=== PATIENT | female | born 1990 | race Caucasian/White ===

== ENCOUNTER → 2018-08-26 12:19 | Outpatient (CLI) | payer OTHER, SELFPAY ==
[2018-08-26 14:49] LABS: Troponin I < 0.02 ng/ml (0.00-0.06)
[2018-08-26 14:52] LABS: Anion Gap 12.7 mEq/L (5-15); Blood Urea Nitrogen 10 mg/dL (7-18); Calcium 8.7 mg/dL (8.5-10.1); Carbon Dioxide 29 mmol/L (21.0-32.0); Chloride 104 mmol/L (98-107); Creatine Kinase 66 U/L (26-192); Creatinine,Serum 0.57 mg/dL (0.55-1.02); Estimated Glomerular Filt Rate 126 ml/min (>60); Free T4 (Free Thyroxine) 1.04 ng/dl (0.76-1.46); GFR (African American) 153 ML/MIN (>60); Glucose 89 mg/dL (74-106); Potassium 4.7 mmoL/L (3.5-5.1); Sodium 141 mmol/L (136-145); Thyroid Stimulating Hormone 1.35 uIU/ml (0.358-3.740)
== END ==
PROVIDERS: Visit Provider Physician Assistant
DX: R00.2 Palpitations (principal); R06.00 Dyspnea, unspecified; R07.9 Chest pain, unspecified; Z86.79 Personal history of other diseases of the circulatory system; Z98.890 Other specified postprocedural states
CPT/HCPCS: 36415; 80048; 82550; 84439; 84443; 84484

== ENCOUNTER → 2019-12-09 08:56 | Outpatient (CLI) | payer OTHER, SELFPAY ==
--- NOTE | 2019-12-09 09:00 | FL_ITS ---
PROCEDURE: FL UPPER GI SERIES W/O AIR CLINICAL INDICATION: GERD,S/P LAPAROSCOPIC SLEEVE GASTRECTOMY COMPARISON: No exams were available for comparison TECHNIQUE: FLUOROSCOPY TIME : 1 minutes and 45 seconds FINDINGS: There has been a prior gastric sleeve surgery. The esophagus has an unremarkable appearance. No hiatal hernia evident. No mass or ulcer. Duodenal bulb has an unremarkable appearance. Reflux was not demonstrated during the exam. IMPRESSION: Prior gastric sleeve surgery otherwise negative upper GI Dictated by: Kyle Sims MD 12/09/2019 14:36 Kyle Sims MD in [place] 12/09/2019 14:36
--- NOTE | 2019-12-09 09:02 | XR_ITS ---
PROCEDURE: XR KUB CLINICAL INDICATION: GERD,S/P LAPAROSCOPIC SLEEVE GASTRECTOMY COMPARISON: No exams were available for comparison FINDINGS: Nonspecific bowel gas pattern with a mild amount of retained colonic feces. Pelvic phleboliths are noted. There are surgical clips from prior cholecystectomy. No acute bony IMPRESSION: Findings mild amount of retained colonic feces otherwise negative Dictated by: Kyle Sims MD 12/09/2019 14:35 Kyle Sims MD in [place] 12/09/2019 14:35
== END ==
PROVIDERS: PCP Pediatrics; Visit Provider Surgery
DX: K21.9 Gastro-esophageal reflux disease without esophagitis (principal); Z98.84 Bariatric surgery status
CPT/HCPCS: 74018; 74240

== ENCOUNTER → 2019-12-11 16:26 | Outpatient (CLI) | payer OTHER, SELFPAY ==
[2019-12-11 18:12] LABS: HCG,Quantitative 21 mIU/ml (0-5.42)
== END ==
PROVIDERS: Visit Provider Obstetrics & Gynecology
DX: Z32.00 Encounter for pregnancy test, result unknown (principal)
CPT/HCPCS: 36415; 84702

== ENCOUNTER → 2019-12-13 05:34 | Outpatient (CLI) | payer OTHER, SELFPAY ==
[2019-12-13 06:43] LABS: HCG,Quantitative 14 mIU/ml (0-5.42)
== END ==
PROVIDERS: PCP Pediatrics; Visit Provider Obstetrics & Gynecology
DX: Z34.90 Encounter for supervision of normal pregnancy, unspecified, unspecified trimester (principal)
CPT/HCPCS: 36415; 84702

== ENCOUNTER → 2019-12-15 21:00 | Outpatient (CLI) | payer OTHER, SELFPAY ==
[2019-12-15 22:02] LABS: HCG,Quantitative 3 mIU/ml (0-5.42)
== END ==
PROVIDERS: PCP Pediatrics; Visit Provider Obstetrics & Gynecology
DX: Z34.90 Encounter for supervision of normal pregnancy, unspecified, unspecified trimester (principal)
CPT/HCPCS: 36415; 84702

== ENCOUNTER → 2020-04-05 10:49 | Outpatient (CLI) | payer OTHER, SELFPAY ==
[2020-04-05 12:33] LABS: HCG,Quantitative 390 mIU/ml (0-5.42)
== END ==
PROVIDERS: Visit Provider Obstetrics & Gynecology
DX: Z32.00 Encounter for pregnancy test, result unknown (principal)
CPT/HCPCS: 36415; 84702

== ENCOUNTER → 2020-04-08 13:47 | Outpatient (CLI) | payer OTHER, SELFPAY ==
[2020-04-08 14:56] LABS: HCG,Quantitative 1326 mIU/ml (0-5.42)
== END ==
PROVIDERS: Visit Provider Obstetrics & Gynecology
DX: Z34.90 Encounter for supervision of normal pregnancy, unspecified, unspecified trimester (principal)
CPT/HCPCS: 36415; 84702

== ENCOUNTER → 2020-04-23 12:50 | Outpatient (CLI) | payer OTHER, SELFPAY ==
--- NOTE | 2020-04-23 12:50 | US_ITS ---
PROCEDURE: US OB <= 14 WEEKS FETUS CLINICAL INDICATION: Dates COMPARISON: No exams were available for comparison FINDINGS: An intrauterine gestational sac is present with a pole with a crown-rump length of 0.88cm correlating to gestational age of 7weeks. heart tones are present with an FHR of 126bpm. Yolk sac is noted. Right ovarian volume 11 cc. A Cordial luteal cyst is present. Left ovarian volume 3.9 cc, normal in appearance. IMPRESSION: Viable intrauterine . Estimated due date by Ultrasound is 12/10/2020 Dictated by: Irma Love MD 04/23/2020 18:26 Irma Love MD in [place] 04/23/2020 18:26
== END ==
PROVIDERS: PCP Pediatrics; Visit Provider Obstetrics & Gynecology
DX: Z34.90 Encounter for supervision of normal pregnancy, unspecified, unspecified trimester (principal)
CPT/HCPCS: 76801

== ENCOUNTER → 2020-04-27 17:01 | Outpatient (CLI) | payer OTHER, SELFPAY ==
[2020-04-27 18:38] LABS: Basophils % 0.3 % (0.1-2.0); Eosinophils % 0.4 % (0.1-12.0); Hematocrit 42.4 % (37.0-47.0); Hemoglobin 13.1 g/dL (12.2-16.2); Lymphocytes # 1.5 K/mm3 (0.7-4.5); Mean Corpuscular HGB Conc 30.9 g/dL (31.8-35.4); Mean Corpuscular Hemoglobin 29.1 pg (27.0-31.2); Mean Corpuscular Volume 94.2 fl (81-99); Monocytes # 0.4 K/mm3 (0.1-1.0); Monocytes % 3.6 % (1.7-9.3); Neutrophils # 8.9 K/mm3 (1.8-7.8); Neutrophils % 81.6 % (37.0-80.0); Platelet Count 288 K/mm3 (142-424); Red Cell Distribution Width 12.3 % (11.5-17.5); White Blood Count 10.9 K/mm3 (4.8-10.8)
[2020-04-30 18:37] LABS: Rapid Plasma Reagin Ab Titer Non Reactive (NonRea<1:1); Rubella Antibodies, IgG <0.90 index (Immune >0.99)
[2020-04-30 18:38] LABS: HIV Screen 4th Generation wRfx Non Reactive (Non Reactive); Hepatitis B Surface Antigen Negative (Negative); Hepatitis C Antibody <0.1 s/co ratio (0.0-0.9)
== END ==
PROVIDERS: Visit Provider Obstetrics & Gynecology
DX: Z34.90 Encounter for supervision of normal pregnancy, unspecified, unspecified trimester (principal)
CPT/HCPCS: 36415; 85025; 86592; 86703; 86762; 86850; 87340; 87380; G0432

== ENCOUNTER → 2020-07-22 12:52 | Outpatient (CLI) | payer OTHER, SELFPAY ==
--- NOTE | 2020-07-22 12:53 | US_ITS ---
PROCEDURE: US OB >= 14 WEEKS FETUS CLINICAL INDICATION: OB complete Anatomy exam COMPARISON: US US OB <= 14 WEEKS FETUS from 04/23/2020 FINDINGS: Single viable intrauterine gestation. Cephalic position. Placenta: Posteriorplacenta grade 1. There is average amount fluid. The cervix appears satisfactory. Closed and measuring 3 cm in length. Complete survey performed and was unremarkable on the submitted images as in PACS. No discrete anomalies identified on survey imaging by technologist. Active fetus. Three-vessel cord with satisfactory umbilical cord insertion. 4- chamber heart noted. Survey of brain & ventricles Unremarkable. Face and neck survey unremarkable. Diaphragm and chest views unremarkable. Abdomen: Both kidneys noted and unremarkable. Stomach noted and satisfactory. Spine: Survey of the spine satisfactory with no anomalies identified nor imaged. Both arms and legs noted. Amniotic Fluid: Adequate. Maternal adnexa: No significant findings. Measurements: Average ultrasound age 19weeks 3days. Gestational Age 19weeks 6 okay days Estimated due date by ultrasound age 1012/13/2020. Estimated weight 288g BPD = 19weeks 4days OFD = 19weeks 5days HC = 19weeks AC = 19weeks 3days FL = 19weeks 4days Growth Percentile= 20Percent% Heart Rate = 144bpm Cerebellum = 20weeks 2days Humerus = 19weeks 5days HC/AC is 1.15 CI is 0.79 FL/BPD is 0.69 FL/AC is 0.22 IMPRESSION: Live IUP which is in cephalic presentation with an average ultrasound age 19 weeks 3 days. No obvious anomalies. Please see above for detail. Dictated by: Kyle Sims MD 07/23/2020 11:21 Kyle Sims MD in [place] 07/23/2020 11:21
== END ==
PROVIDERS: PCP Pediatrics; Visit Provider Obstetrics & Gynecology
DX: Z34.90 Encounter for supervision of normal pregnancy, unspecified, unspecified trimester (principal)
CPT/HCPCS: 76805

== ENCOUNTER → 2020-09-08 10:45 | Outpatient (CLI) | payer OTHER, SELFPAY ==
[2020-09-08 11:07] LABS: Basophils % 0.4 % (0.1-2.0); Eosinophils # 0.1 K/mm3 (0.0-0.4); Eosinophils % 0.9 % (0.1-12.0); Hematocrit 34.4 % (37.0-47.0); Hemoglobin 11.6 g/dL (12.2-16.2); Lymphocytes # 1.4 K/mm3 (0.7-4.5); Lymphocytes % 15.5 % (10-50); Mean Corpuscular HGB Conc 33.6 g/dL (31.8-35.4); Mean Corpuscular Hemoglobin 28.5 pg (27.0-31.2); Mean Corpuscular Volume 84.8 fl (81-99); Mean Platelet Volume 7.5 fl (7.4-10.4); Monocytes # 0.3 K/mm3 (0.1-1.0); Neutrophils # 7.1 K/mm3 (1.8-7.8); Neutrophils % 80.1 % (37.0-80.0); Platelet Count 304 K/mm3 (142-424); Red Blood Count 4.06 M/mm3 (4.20-5.40); Red Cell Distribution Width 12.6 % (11.5-17.5); White Blood Count 8.8 K/mm3 (4.8-10.8)
[2020-09-08 11:46] LABS: Glucose,Fasting 81 mg/dl (74-100)
[2020-09-08 13:17] LABS: Glucose 1 Hour 166 mg/dL (74-100)
== END ==
PROVIDERS: Visit Provider Obstetrics & Gynecology
DX: Z34.90 Encounter for supervision of normal pregnancy, unspecified, unspecified trimester (principal)
CPT/HCPCS: 36415; 82951; 85025

== ENCOUNTER → 2020-09-14 11:06 | Outpatient (CLI) | payer OTHER, SELFPAY ==
[2020-09-14 11:48] LABS: Glucose,Fasting 81 mg/dl (74-100)
[2020-09-14 13:52] LABS: Glucose 1 Hour 179 mg/dL (74-100)
[2020-09-14 14:16] LABS: Glucose 2 Hour 143 mg/dL (74-100)
[2020-09-14 15:59] LABS: Glucose 3 Hour 49 mg/dL (74-100)
== END ==
PROVIDERS: Visit Provider Obstetrics & Gynecology
DX: Z34.92 Encounter for supervision of normal pregnancy, unspecified, second trimester (principal); R73.09 Other abnormal glucose
CPT/HCPCS: 36415; 82951

== ENCOUNTER → 2020-10-25 13:31 | Outpatient (CLI) | payer OTHER, SELFPAY ==
--- NOTE | 2020-10-25 13:31 | US_ITS ---
PROCEDURE: US OB FOLLOW UP CLINICAL INDICATION: Growth and COSMO FINDINGS: The following parameters are obtained: There is a single live fetus which is in cephalic presentation. Average ultrasound age is Average 33weeks 1day Estimated due date by ultrasound is 12/12/2020. Estimated weight is 2,058g. This is 25 percentile BPD: 33weeks 4days OFD: 33 weeks 1 day HC: 33weeks AC: 33weeks FL: 32weeks 4days heart rate: 147bpm bpm. HC/AC: 1.03 Cephalic index: 0.79 FL/BPD: 0.75 FL/AC: 0.22 Amniotic fluid index: 10.52cm The femur length is 32weeks 4days No obvious anomalies evident. Placenta: Posterior grade 1 Cervix: Closed at 4 cm IMPRESSION: There is a single live fetus present in cephalic presentation. Average ultrasound age 33 weeks 1 day with an estimated weight 2058 g which is 25th percentile. Dictated by: Kyle Sims MD 10/25/2020 15:06 Kyle Sims MD in [place] 10/25/2020 15:06
== END ==
PROVIDERS: PCP Pediatrics; Visit Provider Obstetrics & Gynecology
DX: O36.5990 Maternal care for other known or suspected poor fetal growth, unspecified trimester, not applicable or unspecified (principal)
CPT/HCPCS: 76816

== ENCOUNTER → 2020-11-05 14:54 | Outpatient (CLI) | payer OTHER, SELFPAY | PROVIDERS: Visit Provider Obstetrics & Gynecology | DX: Z34.90 Encounter for supervision of normal pregnancy, unspecified, unspecified trimester (principal) | CPT/HCPCS: 86403 ==

== ENCOUNTER → 2020-12-01 12:48 | Outpatient (CLI) | payer OTHER, SELFPAY ==
[2020-12-01 13:27] LABS: Basophils % 0.4 % (0.1-2.0); Eosinophils # 0.1 K/mm3 (0.0-0.4); Eosinophils % 0.8 % (0.1-12.0); Hematocrit 34.3 % (37.0-47.0); Lymphocytes # 1.3 K/mm3 (0.7-4.5); Lymphocytes % 14.2 % (10-50); Mean Corpuscular HGB Conc 32.1 g/dL (31.8-35.4); Mean Corpuscular Hemoglobin 26.4 pg (27.0-31.2); Mean Corpuscular Volume 82.3 fl (81-99); Mean Platelet Volume 7.7 fl (7.4-10.4); Monocytes # 0.3 K/mm3 (0.1-1.0); Monocytes % 3.2 % (1.7-9.3); Neutrophils # 7.6 K/mm3 (1.8-7.8); Neutrophils % 81.3 % (37.0-80.0); Platelet Count 379 K/mm3 (142-424); Red Blood Count 4.17 M/mm3 (4.20-5.40); Red Cell Distribution Width 13.8 % (11.5-17.5); White Blood Count 9.3 K/mm3 (4.8-10.8)
[2020-12-01 13:54] LABS: Chloride 105 mmol/L (98-107); Potassium 4.4 mmoL/L (3.5-5.1); Sodium 134 mmol/L (136-145)
[2020-12-01 13:56] LABS: Alanine Aminotransferase 12 U/L (12-78); Aspartate Amino Transferase 26 U/L (14-36); Blood Urea Nitrogen 8 mg/dl (7-17); Estimated Glomerular Filt Rate 144 ml/min (>60); GFR (African American) 174 ML/MIN (>60)
[2020-12-01 13:57] LABS: Albumin Level 3.7 g/dl (3.5-5.0); Albumin/Globulin Ratio 1.2 (1.1-1.8); Alkaline Phosphatase 179 U/L (38-126); Anion Gap 13.4 mEq/L (5-15); Bilirubin,Total 0.6 mg/dl (0.2-1.3); Carbon Dioxide 20 mmol/L (22.0-30.0); Glucose 114 mg/dl (74-100); Total Protein,Serum 6.7 g/dl (6.3-8.2)
== END ==
PROVIDERS: Visit Provider Obstetrics & Gynecology
DX: Z34.90 Encounter for supervision of normal pregnancy, unspecified, unspecified trimester (principal)
CPT/HCPCS: 36415; 80053; 85025; 86850; C9803; U0003; U0005

== ENCOUNTER 2020-12-03 05:03 | Inpatient (IN) | payer OTHER, SELFPAY ==
--- NOTE | 2020-12-01 10:44 | SUR.PREOP ---
instructed pt to have COVID swab today
[2020-12-03] VITALS (11 sets, daily range): BP systolic 103–142; BP diastolic 57–82; PULSE 74–89; RESP 16–18; TEMP 36.4–42.7; O2SAT 98–100; BMI 41.8
[2020-12-03 05:44] LABS: Microscopic, Urine URINE MICROSCOPIC (MICROSCOPIC)
[2020-12-03 05:45] LABS: Appearance,Urine CLEAR (Clear); Bilirubin,Urine Negative (Negative); Blood, Urine Negative (Negative); Color,Urine YELLOW (Yellow); Glucose,Urine (UA) Negative (Negative); Ketones,Urine 1+ (Negative); Leukocyte Esterase,Urine Negative (Negative); Nitrate,Urine Negative (Negative); Protein,Urine Negative (Negative); Specific Gravity, Urine 1.025 (1.005-1.030); Urobilinogen,Urine 0.2 EU/dl (0.2)
[2020-12-03 05:56] LABS: Barbiturates Screen,Urine Negative ng/ml (<200); Benzodiazepines Screen,Urine Negative ng/ml (<200)
[2020-12-03 05:57] LABS: Amphetamine/Metha Screen,Urine Negative ng/ml (<1000)
[2020-12-03 05:58] LABS: Cannabinoid Screen,Urine Negative ng/ml (<50); Methadone Screen,Urine Negative ng/ml (<300)
[2020-12-03 05:59] LABS: Cocaine Screen,Urine Negative ng/ml (<300); Opiate Screen,Urine Negative ng/ml (<300)
[2020-12-03 06:00] LABS: Phencyclidine Screen,Urine Negative ng/ml (<25)
[2020-12-03 06:11] LABS: Bacteria,Urine 1+ /lpf; Mucus,Urine 1+ /lpf
--- NOTE | 2020-12-03 07:46 | HMH.HP ---
*Admission Date: 12/03/20 *Chief complaint: scheduled c section *History of present illness: 30 yo admitted for scheduled c section at 39 weeks care at [facility] significant for SVT, cardiac ablation and cardiac pacemaker placement She also has a history of gastric bypass History of c section and mild anemia with this [facility] History Medical History: Reports:: Arrhythmia, Gastroesophageal Reflux Disease(GERD), Internal Pacemaker, Supraventricular Tachycardia Denies:: Diabetes Mellitus Type 1, Diabetes Mellitus Type 2, Lung Disease, Seizures *Have you ever received a pneumonia vaccine?: No *Have you received a flu vaccine this season?: Yes Other Medical History: Reports: Anemia Anesthesia experience/problems:: nac Other Surgeries: Yes: Bariatric Surgery, Cholecystectomy, , Pacemaker, Other Amputation: No Fractures: No - *Social History Smoking Status: Former smoker Alcohol Intake: never Alcohol Intake Frequency:: other Substance Use Type: denies use *Occupational Status:: employed *Travel in the last 8 weeks: None Family Hx:: Coronary Artery Disease, Heart Attack, Thyroid Disorder, Diabetes, Cancer : 3 Para: 2 Review of Systems - Review of Systems Review of systems:: pertinent systems reviewed and negative unless documented below - *Genitourinary Denies abnormal vaginal bleeding Meds Home Medications Medication Instructions Recorded Confirmed Type cholecalciferol (vitamin D3) 50 2,000 unit PO DAILY 08/08/17 12/03/20 History mcg (2,000 unit) capsule multivitamin 1 tab PO DAILY 08/26/18 12/03/20 History famotidine 20 mg tablet 20 mg PO BID 04/27/20 12/03/20 History Allergies Allergy/AdvReac Type Severity Reaction Status Date / Time tuberculin, purified protein AdvReac Mild Verified 11/26/20 10:46 deriva Exam Vital signs and Labs for Last 24 Hours: Temp Pulse Resp BP Pulse Ox 97.5 F L 74 18 122/57 L 100 12/03/20 12:03 12/03/20 12:03 12/03/20 12:03 12/03/20 12:03 12/03/20 12:03 Laboratory Results - last 24 hr 12/03/20 05:20: Urine Color Yellow, Urine Appearance Clear, Urine pH 6.0, Ur Specific [place] 1.025, Urine Protein Negative, Urine Glucose (UA) Negative, Urine Ketones 1+, Urine Blood Negative, Urine Nitrate Negative, Urine Bilirubin Negative, Urine Urobilinogen 0.2, Ur Leukocyte Esterase Negative, Urine WBC 3-5, Urine Bacteria 1+, Urine Mucus 1+ 12/03/20 05:20: Urine Opiates Screen Negative, Urine Methadone Screen Negative, Ur Barbituates Screen Negative, Ur Phencyclidine Scrn Negative, Ur Amphetamines Screen Negative, U Benzodiazepines Scrn Negative, Urine Cocaine Screen Negative, U Marijuana (THC) Screen Negative I & O for Last 24 hours: Intake & Output 12/01/20 12/02/20 12/03/20 12/04/20 11:59 11:59 11:59 11:59 Intake Total 1999 Balance 1999 Weight 214 lb - Constitutional no acute distress - *Routine HEENT Exam Head: Present: normocephalic Eye: Absent: conjunctival icterus ENT: Present: mucous membranes moist - *Routine Neck Exam Present: supple. Absent: lymphadenopathy - *Routine Respiratory Exam Present: CTA bilaterally - *Routine Cardiovascular Exam Present: RRR - *Routine Abdominal Exam Present: soft, normoactive bowel sounds. Absent: tenderness - *Routine Rectal Exam Rectal:: deferred - *Routine Genitalia Exam Genitalia:: normal female - *Routine Extremities Exam Absent: cyanosis, clubbing, edema - *Routine Skin Exam Present: warm. Absent: rash - *Routine Neurological Exam Present: alert, oriented X3 Assessment and Plan (1) 39 weeks gestation of Status: Acute Category: Medical Code(s): Z3A.39 - 39 weeks gestation of (2) Previous section Status: Acute Category: Surgical Code(s): Z98.891 - History of uterine scar from previous surgery (3) Anemia affecting Status: Acute Category: Medical Code(s): O99.019
--- NOTE | 2020-12-03 09:13 | HMH.ANESCL ---
[facility] Anesthesia Checklist - Patient Identification Patient Identification: Arm Band - Structural Data Admitted From: Home Planned Operative Procedure/s: Repeat C/S Consent for Planned Operative Procedure(s) Verified: Yes Verified Documents: Surgical Consent, History and Physical - NPO Status Verified Time NPO: 00:00 - Additional verifications Anesthesia Reactions: No - Airway Assessment C-Spine Mobility Assessed: Yes (mp2) TMJ Mobility Assessed: Yes Dentition: Good Dentition - Neurological Assessment Level of Consciousness: Awake, Alert - Anesthesia Plan Anesthesia Risk discussed: Yes Anesthesia Plan: Verified ASA Class: III Anesthesia Type: Spinal (with TAP block) [facility] History I have reviewed the patient's past medical history: Yes Medical History: Reports:: Arrhythmia, Gastroesophageal Reflux Disease(GERD), Internal Pacemaker, Supraventricular Tachycardia Denies:: Diabetes Mellitus Type 1, Diabetes Mellitus Type 2, Lung Disease, Seizures *Have you ever received a pneumonia vaccine?: No *Have you received a flu vaccine this season?: Yes Anesthesia experience/problems:: nac Other Surgeries: Yes: Bariatric Surgery, Cholecystectomy, , Pacemaker, Other Amputation: No Fractures: No - *Social History Smoking Status: Former smoker Alcohol Intake: never Alcohol Intake Frequency:: other Substance Use Type: denies use *Occupational Status:: employed *Travel in the last 8 weeks: None Family Hx:: Coronary Artery Disease, Heart Attack, Thyroid Disorder, Diabetes, Cancer Para: 2
--- NOTE | 2020-12-03 09:14 | HMH.ANESI ---
[facility] Anesthesia Record Part I Intake, IV Amount: 2,000 Estimated blood loss (mL): 600 Urine output (mL): 200 Blood Pressure: 141/72 SaO2: 99 Pulse Rate: 75 Respiratory Rate: 16 Temperature: 97.7 F Patient is:: Drowsy, Stable Stable to PACU at:: 09:05
--- NOTE | 2020-12-03 09:42 | SUR.PHASEI ---
0933- report called to shawna Baumann on OB floor. 0936- pt left in stable condition with shawna Baumann on the Ob floor at this time.
--- NOTE | 2020-12-03 12:56 | HMH.ANESII ---
[facility] Anesthesia Record Part II Discharge Time: 09:35 Destination: Obstetric PACU nurse assessment reviewed?: Yes Patient Condition:: Good Anesthesia Complications:: None Swallowing reflex intact?: Yes Cyanosis?: No Blood Pressure: 140/72 Pulse Rate: 76 Temperature: 97.8 F Mental Status: Alert & Oriented Pain level:: 0 Nausea and/or vomitting:: None Intake, IV Amount: 0
--- NOTE | 2020-12-03 13:01 | HMH.OPNOTE ---
Date of procedure: 12/03/20 Pre-op Diagnosis:: 1. 39 weeks gestational age 2. Previous c section Post-op Diagnosis:: same Procedure performed:: Low Transverse C Section Surgeon:: Eloise Grimaldo MD Mushroom Farmer(s):: Andrey Brian POCKET SETTER LOCKSTITCH:: Db Walker Anesthesia: spinal Estimated blood loss (mL): 600 Operative findings:: vigorous liveborn female apgars 8 (1 min) & 10 (5 min) Extremely thin lower uterine segment Operative note:: The patient was taken to the OR and spinal was administered without difficulty. She was prepped and draped in normal sterile fashion. A pfannenstiel skin incision was made with the scalpel and carried down to the fascia. The fascia was incised in the midline and sharply dissected off the rectus muscles. The muscles were in the midline and the peritoneum was entered sharply and extended bluntly. The Donell-O self retaining retractor was placed in the abdomen and a bladder flap was created. The lower uterine segment was extremely thin, and vernix floating in amniotic fluid could be seen through the uterine tissue before the incision was made. The uterus was incised in the lower uterine segment in a transverse fashion and extended bluntly. Amniotomy was performed and clear fluid noted. The was delivered in controlled fashion, without complication or shoulder dystocia. The was vigorous at and handed to awaiting salvage mend worker for evaluation after cord clamped and cut. Cord blood was collected and a cord segment was preserved. The placenta was manually extracted and noted to be intact. The uterus was repaired with 0-vicryl in a running/locked fashion. The peritoneum was closed with 2-0 vicryl in a running fashion. The fascia was closed with #1 vicryl in a running fashion. The subcutaneous fat was closed with 2-0 vicryl in an interrupted fashion. The skin was closed with 2-0 stratafix. The patient tolerated the procedure well. Sponge, lap, needle and instrument counts were correct x 2. She was taken to PACU awake and in stable condition. Condition: stable Disposition: PACU Specimens:: Placenta Complications:: none
[2020-12-03 14:20] LABS: Microscopic,Cath URINE MICROSCOPIC (MICROSCOPIC)
[2020-12-03 14:31] LABS: Appearance,Urine/Cath CLEAR (Clear); Bilirubin,Cath Negative (Negative); Blood, Urine/Cath Negative (Negative); Color,Urine/Cath YELLOW (Yellow); Glucose,Urine/Cath (UA) Negative (Negative); Ketones,Urine/Cath 1+ (Negative); Leukocyte Esterase,Cath Negative (Negative); Nitrate,Cath Negative (Negative); PH,Urine/Cath 6.5 (5.0-8.5); Protein,Urine/Cath Negative (Negative); Urobilinogen,Cath 0.2 EU/dl (0.2)
--- NOTE | 2020-12-03 14:36 | HMH.PHAINT ---
MEDICATION RECONCILIATION COMPLETE USING LIST FROM RECENT OB OFFICE VISIT AND EXTERNAL PHARMACY FILL HISTORY.
[2020-12-03 14:53] LABS: Bacteria,Urine/Cath TRACE /lpf
--- NOTE | 2020-12-03 16:30 | HMH.PHAVTE ---
[facility] Pharm[facility] VTE Monitoring - Patient Demographics Admission date: 12/03/20 Report Date: 12/03/20 Time: 16:30 Allergies/Adverse Reactions: Patient Allergies tuberculin, purified protein deriva Adverse Reaction (Mild, Verified 11/26/20 10:46) Height: 1.52 m Weight: 97.069 kg Patient Problems: Current Active Problems 39 weeks gestation of (Acute) Anemia affecting (Acute) Previous section (Acute) - VTE Risk Clinical Trial Participant: No - Prophylaxis VTE Prophylaxis Ordered?: Yes Types of VTE Prophylaxis: IPCS Knee High (POST OP)
[2020-12-04 04:57] VITALS: BP 107/57; PULSE 70; RESP 17; TEMP 36.8; O2SAT 100
[2020-12-04 08:00] VITALS: BP 116/63; PULSE 74; RESP 20; TEMP 36.7; O2SAT 100
[2020-12-04 08:30] LABS: Hematocrit 28.6 % (37.0-47.0); Hemoglobin 9.2 g/dL (12.2-16.2)
--- NOTE | 2020-12-04 09:49 | HMH.ACPN2 ---
Internal Medicine - PN: Subj *Date: 12/04/20 *Time: 09:49 (This is and postop day #1. The patient is afebrile. Vital signs stable. Wound clean. Abdomen soft. Lochia normal. Uterine fundus involuting well.Bottlefeeding. Hemoglobin 9.2 g, but clinically stable. Impression: Stable.) Exam Vital signs and Labs for Last 24 Hours: Temp Pulse Resp BP Pulse Ox 98.1 F 74 20 116/63 100 12/04/20 08:00 12/04/20 08:00 12/04/20 08:00 12/04/20 08:00 12/04/20 08:00 Laboratory Results - last 24 hr 12/03/20 07:50: Urine Color Yellow, Urine Appearance Clear, Urine pH 6.5, Ur Specific [place] 1.010, Urine Protein Negative, Urine Glucose (UA) Negative, Urine Ketones 1+, Urine Blood Negative, Urine Nitrate Negative, Urine Bilirubin Negative, Urine Urobilinogen 0.2, Ur Leukocyte Esterase Negative, Urine RBC None, Urine WBC None, Ur Squamous Epith Cells None, Urine Bacteria Trace 12/04/20 06:57: Hgb 9.2 L, Hct 28.6 L I & O for Last 24 hours: Intake & Output 12/01/20 12/02/20 12/03/20 12/04/20 11:59 11:59 11:59 11:59 Intake Total 1999 0 / 0 Balance 1999 0 / 0 Weight 214 lb Assessment and Plan (1) 39 weeks gestation of Status: Acute Category: Medical Code(s): Z3A.39 - 39 weeks gestation of (2) Previous section Status: Acute Category: Surgical Code(s): Z98.891 - History of uterine scar from previous surgery (3) Anemia affecting Status: Acute Category: Medical Code(s): O99.019 - Anemia complicating , unspecified trimester
[2020-12-04 16:10] VITALS: BP 116/55; PULSE 75; RESP 20; TEMP 36.6; O2SAT 97
[2020-12-04 20:17] VITALS: BP 111/56; PULSE 75; RESP 18; TEMP 36.6; O2SAT 95
[2020-12-05 04:31] VITALS: BP 112/71; PULSE 70; RESP 16; TEMP 36.9; O2SAT 98
[2020-12-05 07:52] VITALS: BP 117/56; PULSE 75; RESP 20; TEMP 36.6; O2SAT 100
--- NOTE | 2020-12-05 10:02 | HMH.ACPN2 ---
Internal Medicine - PN: Subj *Date: 12/05/20 *Time: 10:02 (This is and postop day #2. The patient is afebrile. Vital signs stable. Wound clean. Abdomen soft. Lochia normal. Hemoglobin 9.2 g, but clinically stable. The patient is anxious for early discharge and will be discharged today.) Exam Vital signs and Labs for Last 24 Hours: Temp Pulse Resp BP Pulse Ox 97.9 F 75 20 117/56 L 100 12/05/20 07:52 12/05/20 07:52 12/05/20 07:52 12/05/20 07:52 12/05/20 07:52 I & O for Last 24 hours: Intake & Output 12/02/20 12/03/20 12/04/20 12/05/20 11:59 11:59 11:59 11:59 Intake Total 1999 0 / 0 Balance 1999 0 / 0 Weight 214 lb Assessment and Plan (1) 39 weeks gestation of Status: Acute Category: Medical Code(s): Z3A.39 - 39 weeks gestation of (2) Previous section Status: Acute Category: Surgical Code(s): Z98.891 - History of uterine scar from previous surgery (3) Anemia affecting Status: Acute Category: Medical Code(s): O99.019 - Anemia complicating , unspecified trimester
--- NOTE | 2020-12-05 10:03 | HMH.DCSUM ---
General - General Admission date:: 12/03/20 Discharge date: 12/05/20 (This 30-year-old 4, now para 3, Ab 1 white female was admitted at 39 weeks of gestation for repeat section. On the date of admission, she was taken to the operating room, where she underwent that procedure without complications. The baby was an 8/10, 7 pound 2 ounce, 19 inch female , who is bottlefeeding and has done well. and postoperatively, the patient has done well. She is eating and ambulating and has had a bowel movement. Her wound is clean. Her abdomen is soft. Her lochia is normal. Her uterine fundus has involuted well. Her hemoglobin is 9.2 g, but she is clinically stable. Her blood type is O+. Her rubella titer is nonimmune and she will be vaccinated prior to discharge. She is given appropriate instructions as to diet, exercise, and wound care, and she is to return to Dr. Grimaldo's office as scheduled for care.) HPI HPI: 30 yo admitted for scheduled c section at 39 weeks care at [facility] significant for SVT, cardiac ablation and cardiac pacemaker placement She also has a history of gastric bypass History of c section and mild anemia with this Hospital Course Rhogam Administration: Not Indicated Objective Vital signs: Temp Pulse Resp BP Pulse Ox 97.9 F 75 20 117/56 L 100 12/05/20 07:52 12/05/20 07:52 12/05/20 07:52 12/05/20 07:52 12/05/20 07:52 no acute distress - *Routine HEENT Exam Head: Present: normocephalic Eye: Present: EOMI, PERRL ENT: Present: mucous membranes moist - *Routine Neck Exam Present: supple - *Routine Respiratory Exam Present: CTA bilaterally - *Routine Cardiovascular Exam Present: RRR - *Routine Abdominal Exam Present: soft, normoactive bowel sounds. Absent: tenderness - *Routine Extremities Exam Absent: cyanosis, clubbing, edema - *Routine Skin Exam Present: warm. Absent: rash - Detailed Eye Exam Eyelids: Bilateral normal inspection DS: Diagnosis - Discharge Diagnosis (1) 39 weeks gestation of Status: Acute (2) Previous section Status: Acute (3) Anemia affecting Status: Acute Discharge Plan - Patient Discharge Instructions Additional Instructions: No heavy lifting Drink plenty of fluids Nothing in the vagina for 6 weeks No driving No tub baths Patient Instructions: Depression, Hemorrhage, DI for , DI for Pre-eclampsia, [facility] Post Discharge Instructions, Preventing the Spread of Coronavirus Discharge Instructions - Follow up Plan Follow up with: Eloise Grimaldo MD [Staff Physician] - 12/17/20 1:30 pm Condition at discharge:: Stable Home Medications: Home Medications Medication Instructions Recorded Confirmed Type cholecalciferol (vitamin D3) 50 2,000 unit PO DAILY 08/08/17 12/03/20 History mcg (2,000 unit) capsule multivitamin 1 tab PO DAILY 08/26/18 12/03/20 History famotidine 20 mg tablet 20 mg PO BID 04/27/20 12/03/20 History Prescriptions/Medication Reconciliation: No Action cholecalciferol (vitamin D3) 50 mcg (2,000 unit) capsule 2,000 unit PO DAILY multivitamin 1 tab PO DAILY famotidine 20 mg tablet 20 mg PO BID - Problem Reconciliation Problems Reviewed?: Yes
== END 2020-12-05 11:15 | disposition home or self-care (01) | DRG 788 ==
PROVIDERS: Admitting Provider Obstetrics & Gynecology; PCP Pediatrics; Visit Provider Obstetrics & Gynecology
PROC: 10D00Z1 Extraction of Products of Conception, Low, Open Approach (ICD-10-PCS; CPT 59514; principal; 2020-12-03 07:30)
DX: O34.211 Maternal care for low transverse scar from previous cesarean delivery (principal); Z3A.39 39 weeks gestation of pregnancy; Z37.0 Single live birth; Z87.891 Personal history of nicotine dependence; O99.02 Anemia complicating childbirth; Z95.0 Presence of cardiac pacemaker; O99.62 Diseases of the digestive system complicating childbirth; K21.9 Gastro-esophageal reflux disease without esophagitis; D64.9 Anemia, unspecified
CPT/HCPCS: 59514; 36415; 59025; 80053; 80305; 81001; 85014; 85018; 85025; 86850; 90707; 94761; C9290; C9803; G0283; J2405; U0003; U0005

== ENCOUNTER → 2021-03-10 11:24 | Outpatient (CLI) | payer OTHER, SELFPAY ==
[2021-03-10 11:52] LABS: Basophils # 0.1 K/mm3 (0-0.2); Basophils % 1.3 % (0.1-2.0); Eosinophils # 0.2 K/mm3 (0.0-0.4); Eosinophils % 3.8 % (0.1-12.0); Hematocrit 37.4 % (37.0-47.0); Hemoglobin 11.4 g/dL (12.2-16.2); Lymphocytes % 21.4 % (10-50); Mean Corpuscular HGB Conc 30.4 g/dL (31.8-35.4); Mean Corpuscular Hemoglobin 25.2 pg (27.0-31.2); Mean Corpuscular Volume 82.8 fl (81-99); Mean Platelet Volume 7.9 fl (7.4-10.4); Monocytes # 0.3 K/mm3 (0.1-1.0); Monocytes % 5.9 % (1.7-9.3); Neutrophils # 3.2 K/mm3 (1.8-7.8); Neutrophils % 67.6 % (37.0-80.0); Platelet Count 385 K/mm3 (142-424); Red Blood Count 4.52 M/mm3 (4.20-5.40); Red Cell Distribution Width 14.5 % (11.5-17.5); White Blood Count 4.8 K/mm3 (4.8-10.8)
[2021-03-10 12:21] LABS: Hemoglobin A1C 4.7 % (4.0-6.0)
[2021-03-10 13:11] LABS: Alanine Aminotransferase 35 U/L (12-78); Albumin Level 4.4 g/dl (3.5-5.0); Albumin/Globulin Ratio 1.6 (1.1-1.8); Alkaline Phosphatase 100 U/L (38-126); Anion Gap 10.4 mEq/L (5-15); Aspartate Amino Transferase 41 U/L (14-36); Bilirubin,Total 0.5 mg/dl (0.2-1.3); Blood Urea Nitrogen 10 mg/dl (7-17); Calcium 9.1 mg/dl (8.4-10.2); Carbon Dioxide 29 mmol/L (22.0-30.0); Chloride 101 mmol/L (98-107); Chol/HDL Ratio 2.9 (1-3.5); Cholesterol 190 mg/dl (140-200); Estimated Glomerular Filt Rate 98 ml/min (>60); GFR (African American) 118 ML/MIN (>60); Globulin 2.8 g/dL (1.3-3.2); Glucose 89 mg/dl (74-100); HDL Cholesterol 66 mg/dl (40-60); Phosphorous 4.2 mg/dl (2.5-4.5); Potassium 4.4 mmoL/L (3.5-5.1); Sodium 136 mmol/L (136-145); Total Protein,Serum 7.2 g/dl (6.3-8.2); Triglycerides 63 mg/dl (30-150); VLDL Cholesterol 13 mg/dL (0-40)
[2021-03-10 13:22] LABS: Direct LDL Cholesterol 107.29 mg/dL (100-129)
[2021-03-10 13:23] LABS: Intact Parathyroid Hormone 54.5 pg/mL (7.5-53.5)
[2021-03-10 13:29] LABS: 25-OH Vitamin D, Total 30.1 ng/mL (30-100)
[2021-03-10 13:42] LABS: Thyroid Stimulating Hormone 1.97 uIU/mL (0.465-4.68)
[2021-03-10 14:18] LABS: Folate 9.73 ng/mL
[2021-03-10 14:43] LABS: Iron 20 ug/dL (37-170)
[2021-03-10 15:19] LABS: Ferritin 5.12 ng/ml (6.24-137)
[2021-03-12 09:21] LABS: Prealbumin 17 mg/dL (14-35)
[2021-03-15 01:13] LABS: Methylmalonic Acid 227 nmol/L (0-378)
[2021-03-16 10:29] LABS: Vitamin E Alpha Tocopherol 8.9 mg/L (5.9-19.4); Vitamin E Gamma Tocopherol 1.5 mg/L (0.7-4.9)
[2021-03-16 18:09] LABS: Vitamin B1 101.6 nmol/L (66.5-200.0)
[2021-03-21 13:45] LABS: Vitamin A 35.7 ug/dL (18.9-57.3)
== END ==
PROVIDERS: Visit Provider Nurse Practitioner Family
DX: E66.01 Morbid (severe) obesity due to excess calories (principal); Z68.38 Body mass index [BMI] 38.0-38.9, adult
CPT/HCPCS: 36415; 80053; 80061; 82131; 82306; 82728; 82746; 83036; 83540; 83735; 83970; 84100; 84134; 84425; 84443; 84446; 84590; 85025

== ENCOUNTER → 2021-03-16 10:06 | Outpatient (CLI) | payer OTHER, SELFPAY ==
[2021-03-16 19:30] LABS: HCG,Quantitative < 2 mIU/ml (0-5.42)
== END ==
PROVIDERS: PCP Pediatrics; Visit Provider Obstetrics & Gynecology
DX: Z30.430 Encounter for insertion of intrauterine contraceptive device (principal)
CPT/HCPCS: 36415; 84702

== ENCOUNTER → 2021-04-13 10:56 | Outpatient (CLI) | payer OTHER, SELFPAY ==
[2021-04-16 00:08] LABS: H. pylori Stool Ag, EIA Negative (Negative)
== END ==
PROVIDERS: PCP Pediatrics; Visit Provider Nurse Practitioner Family
DX: K21.9 Gastro-esophageal reflux disease without esophagitis (principal)
CPT/HCPCS: 87338

== ENCOUNTER → 2021-06-02 15:48 | Outpatient (CLI) | payer OTHER, SELFPAY ==
[2021-06-02 15:54] LABS: Microscopic, Urine URINE MICROSCOPIC (MICROSCOPIC)
[2021-06-02 16:17] LABS: Basophils % 0.5 % (0.1-2.0); Eosinophils # 0.2 K/mm3 (0.0-0.4); Eosinophils % 2.5 % (0.1-12.0); Hematocrit 34.2 % (37.0-47.0); Hemoglobin 10.9 g/dL (12.2-16.2); Lymphocytes # 1.6 K/mm3 (0.7-4.5); Mean Corpuscular HGB Conc 31.8 g/dL (31.8-35.4); Mean Corpuscular Hemoglobin 24.3 pg (27.0-31.2); Mean Corpuscular Volume 76.4 fl (81-99); Mean Platelet Volume 8.8 fl (7.4-10.4); Monocytes # 0.2 K/mm3 (0.1-1.0); Monocytes % 2.5 % (1.7-9.3); Neutrophils # 6.3 K/mm3 (1.8-7.8); Neutrophils % 75.5 % (37.0-80.0); Platelet Count 431 K/mm3 (142-424); Red Blood Count 4.47 M/mm3 (4.20-5.40); Red Cell Distribution Width 15.4 % (11.5-17.5); White Blood Count 8.4 K/mm3 (4.8-10.8)
[2021-06-02 16:38] LABS: Alanine Aminotransferase 21 U/L (12-78); Albumin Level 4.2 g/dl (3.5-5.0); Albumin/Globulin Ratio 1.6 (1.1-1.8); Alkaline Phosphatase 80 U/L (38-126); Anion Gap 12.2 mEq/L (5-15); Aspartate Amino Transferase 29 U/L (14-36); Bilirubin,Total 0.5 mg/dl (0.2-1.3); Blood Urea Nitrogen 14 mg/dl (7-17); Calcium 8.7 mg/dl (8.4-10.2); Carbon Dioxide 26 mmol/L (22.0-30.0); Chloride 104 mmol/L (98-107); Chol/HDL Ratio 2.8 (1-3.5); Cholesterol 184 mg/dl (140-200); Estimated Glomerular Filt Rate 98 ml/min (>60); GFR (African American) 118 ML/MIN (>60); Globulin 2.7 g/dL (1.3-3.2); Glucose 100 mg/dl (74-100); HDL Cholesterol 66 mg/dl (40-60); Potassium 4.2 mmoL/L (3.5-5.1); Sodium 138 mmol/L (136-145); Total Protein,Serum 6.9 g/dl (6.3-8.2); Triglycerides 75 mg/dl (30-150); VLDL Cholesterol 15 mg/dL (0-40)
[2021-06-02 16:54] LABS: 25-OH Vitamin D, Total 28.5 ng/mL (30-100)
[2021-06-02 17:07] LABS: Thyroid Stimulating Hormone 1.16 uIU/mL (0.465-4.68)
[2021-06-02 17:45] LABS: Appearance,Urine CLEAR (Clear); Bilirubin,Urine Negative (Negative); Blood, Urine 2+ (Negative); Color,Urine YELLOW (Yellow); Glucose,Urine (UA) Negative (Negative); Ketones,Urine Negative (Negative); Leukocyte Esterase,Urine Negative (Negative); Nitrate,Urine Negative (Negative); Protein,Urine Negative (Negative); Specific Gravity, Urine >= 1.030 (1.005-1.030); Urobilinogen,Urine 0.2 EU/dl (0.2)
[2021-06-02 18:08] LABS: Bacteria,Urine 1+ /lpf
== END ==
PROVIDERS: PCP Pediatrics; Visit Provider Pediatrics
DX: E78.5 Hyperlipidemia, unspecified (principal); R53.83 Other fatigue; E55.9 Vitamin D deficiency, unspecified; R35.1 Nocturia
CPT/HCPCS: 36415; 80053; 80061; 81001; 82306; 84443; 85025

== ENCOUNTER → 2021-10-07 13:51 | Outpatient (CLI) | payer OTHER, SELFPAY ==
--- NOTE | 2021-10-07 13:51 | US_ITS ---
FINAL REPORT CLINICAL HISTORY: abnormal bleeding postcoital and contact bleeding FINDINGS: Transvaginal sonographic images of the pelvis were obtained. The uterus measures 8.9 x 4.0 x 4.5 cm. The endometrium measures 9 mm, which is within normal limits. There is an IUD in the endometrium. No uterine mass is identified. The right ovary measures 2.0 x 1.8 x 2.7 cm and left ovary measures 3.6 x 2.9 x 2.9 cm. Normal blood flow seen to the ovaries. Small follicles are present. There is a dominant follicle in the left ovary measuring 1.9 cm. There is no evidence of free fluid. IMPRESSION: Left ovarian cyst. Reviewed, Interpreted and Dictated by Nader Queen III, MD Transcribed by Rylie Hills Authenticated and [facility]
== END ==
PROVIDERS: PCP Pediatrics; Visit Provider Obstetrics & Gynecology
DX: N93.0 Postcoital and contact bleeding (principal)
CPT/HCPCS: 76830

== ENCOUNTER 2021-11-29 15:29 | Emergency (ER) | payer OTHER, SELFPAY ==
--- NOTE | 2021-11-29 15:29 | ECG_ITS ---
APPROVED REPORT Exam: Resting ECG HR:67 bpm ECG Measurements Heart Rate 67 AXES FL 142 P 54 QRSd 92 QRS 48 QT 374 T 49 QTc 390 Conclusion SINUS RHYTHM WITH SINUS ARRHYTHMIA POSSIBLE RIGHT VENTRICULAR CONDUCTION DELAY [RSR (QR) IN V1/V2] BORDERLINE ECG UNCONFIRMED REPORT Electronically signed by : Domingo Christensen MD 12/01/2021 15:58:55
[2021-11-29 15:33] VITALS: BP 133/59; PULSE 67; RESP 16; TEMP 36.6; O2SAT 98; BMI 34.5
--- NOTE | 2021-11-29 15:39 | XR_ITS ---
FINAL REPORT CLINICAL HISTORY: cough COMPARISON: February 07, 2021 FINDINGS: PORTABLE CHEST A left subclavian pacemaker is present. The heart is normal in size. The mediastinum is unremarkable. There are calcified granulomas. The lungs are otherwise clear. There is no pneumothorax. IMPRESSION: No acute process. Reviewed, Interpreted and Dictated by Forest Oleary MD Transcribed by Dilma Glasgow Authenticated and [facility]
[2021-11-29 15:52] LABS: Basophils # 0.1 K/mm3 (0-0.2); Basophils % 1.2 % (0.1-2.0); Eosinophils # 0.1 K/mm3 (0.0-0.4); Eosinophils % 1.2 % (0.1-12.0); Hematocrit 35.9 % (37.0-47.0); Hemoglobin 11.6 g/dL (12.2-16.2); Lymphocytes # 1.7 K/mm3 (0.7-4.5); Lymphocytes % 19.5 % (10-50); Mean Corpuscular HGB Conc 32.3 g/dL (31.8-35.4); Mean Corpuscular Hemoglobin 26.4 pg (27.0-31.2); Mean Corpuscular Volume 81.6 fl (81-99); Mean Platelet Volume 8.8 fl (7.4-10.4); Monocytes # 0.3 K/mm3 (0.1-1.0); Monocytes % 3.6 % (1.7-9.3); Neutrophils # 6.6 K/mm3 (1.8-7.8); Neutrophils % 74.5 % (37.0-80.0); Platelet Count 376 K/mm3 (142-424); Red Cell Distribution Width 15.3 % (11.5-17.5); White Blood Count 8.8 K/mm3 (4.8-10.8)
--- NOTE | 2021-11-29 15:53 | PC.NURSE ---
PORT CHEST BEING DONE
[2021-11-29 15:59] LABS: Chloride 99 mmol/L (98-107); Sodium 138 mmol/L (136-145)
[2021-11-29 16:00] VITALS: BP 117/62; PULSE 64; RESP 22; O2SAT 98
[2021-11-29 16:00] LABS: Potassium 3.9 mmoL/L (3.5-5.1)
[2021-11-29 16:02] LABS: Alanine Aminotransferase 25 U/L (12-78); Alkaline Phosphatase 115 U/L (38-126); Anion Gap 14.9 mEq/L (5-15); Aspartate Amino Transferase 43 U/L (14-36); Bilirubin,Total 0.2 mg/dl (0.2-1.3); Blood Urea Nitrogen 12 mg/dl (7-17); Carbon Dioxide 28 mmol/L (22.0-30.0); Creatinine Clearance Estimated 171 mL/min (50-200); Estimated Glomerular Filt Rate 116 ml/min (>60); GFR (African American) 140 ML/MIN (>60)
[2021-11-29 16:03] LABS: Albumin Level 4.4 g/dl (3.5-5.0); Albumin/Globulin Ratio 1.5 (1.1-1.8); Calcium 8.8 mg/dl (8.4-10.2); Globulin 2.9 g/dL (1.3-3.2); Glucose 118 mg/dl (74-100); Total Protein,Serum 7.3 g/dl (6.3-8.2)
[2021-11-29 16:12] LABS: NT Pro Brain Natriuretic Pep. 142 pg/mL (0-125)
--- NOTE | 2021-11-29 16:30 | HMH.EDCP ---
Discharge Plan Disposition Patient Disposition: Home, Self-Care Condition: Good Chief Complaint: Chest Pain Prescriptions Prescriptions: No Action cholecalciferol (vitamin D3) 2,000 unit capsule 2,000 unit PO DAILY multivitamin Tablet 1 tab PO DAILY ParaGard T 380A 380 square mm intrauterine device INTRAUTERI ferrous sulfate 325 mg (65 mg iron) tablet 325 mg PO DAILY omeprazole 20 mg capsule,delayed release(DR/EC) 20 mg PO DAILY Referrals Follow up/Referrals: Provider,Referral, MD [Primary Care Provider] - See instructions Clinical Impressions Clinical Impression: Chest pain Instructions Patient Instructions: DI for Atypical Chest Pain Discharge ED Provider: Reese Romano Chest Pain HPI General Chief Complaint: Chest Pain Stated Complaint: chest pain Time Seen by Provider: 11/29/21 15:30 Mode of Arrival: Ambulatory Source of Information: Patient Limitations: No Limitations Description of Symptoms (Recalled from ER Triage Doc. by RN): to ed per pvt car with c/o sharp intermittent lt side chest pain radiating into back lt shoulder and lt arm starting approx 10am today while working. pt with hx of pacemaker 2 years ago and gastric bypass in august. History of Present Illness HPI narrative: This is a 31-year-old female presented to the emergency department with some left-sided chest pain. Patient has had the symptoms for last 6 hours or so. She had some pain in the left side of her chest that has started off is intermittent in the last week, however is been consistent for the last 6 hours. That occurred while she was at work today. Patient has history of a pacemaker in the past secondary to bradycardia. Pain is dull in nature. Radiates to her back. Left shoulder. She denies any shortness of breath or cough. No headache or change in vision. No focal weakness. No abdominal pain or vomiting. No diarrhea. JOHNIE Score for Non-Stemi Age of Patient: 30-39 years old Heart Rate: 50-69 bpm Systolic Blood Pressure: 120-139 mmhg Serum Creatinine: <0.40 mg/dl CHF Killip Class: I-No CHF Other Risk Factors: None Non-Stemi Risk Score: 46 Risk Stratification: 1-108 = Low Risk Related Data Home Medications Medication Instructions Recorded Confirmed cholecalciferol (vitamin D3) 50 2,000 unit PO DAILY Supplement 08/08/17 10/04/21 mcg (2,000 unit) capsule multivitamin 1 tab PO DAILY Supplement 08/26/18 10/04/21 copper 380 square mm intrauterine intrauterine 03/17/21 10/04/21 device (ParaGard T 380A) ferrous sulfate 325 mg (65 mg 325 mg PO DAILY 04/18/21 10/04/21 iron) tablet omeprazole 20 mg capsule,delayed 20 mg PO DAILY 10/04/21 10/04/21 release Allergies Allergy/AdvReac Type Severity Reaction Status Date / Time tuberculin, purified protein AdvReac Mild Verified 10/04/21 16:18 deriva PFSH PFS Social History Smoking Status: Never smoker alcohol intake: never substance use type: denies use current occupational status: employed Travel in the last 8 weeks: None caffeine: No ROS Obtained: Yes All systems reviewed & no additional complaints except as documented Constitutional Constitutional: Denies fever(s) and Denies headache(s) Eyes Eyes: Denies change in vision ENT Ears, Nose, Mouth, and Throat: Denies headache(s) Cardiovascular Cardiovascular: Reports chest pain and Denies dyspnea Respiratory Respiratory: Denies dyspnea Gastrointestinal Gastrointestingal: Denies vomiting Musculoskeletal Musculoskeletal: Denies arthralgias Integumentary/Breasts Skin/Breast: Denies rash Neurologic Neurologic: Denies headache(s) Physical Exam General General appearance: alert and in no apparent distress Eye Eye exam: Present normal appearance, PERRL and EOMI Neck Neck exam: Present normal inspection and full ROM Respiratory Respiratory exam: Present normal lung sounds bilaterally; Abs
[2021-11-29 16:31] VITALS: BP 104/50; PULSE 60; RESP 18; O2SAT 100
[2021-11-29 16:31] LABS: Troponin I < 0.01 ng/ml (0.00-0.034)
[2021-11-29 17:00] VITALS: BP 127/75; PULSE 61; RESP 18; O2SAT 100
[2021-11-29 17:45] VITALS: BP 125/74; PULSE 78; RESP 16; TEMP 36.6; O2SAT 98
== END 2021-11-29 17:47 | disposition home or self-care (01) ==
PROVIDERS: Emergency Provider Emergency Medicine
DX: R07.9 Chest pain, unspecified (principal); Z79.899 Other long term (current) drug therapy; Z88.8 Allergy status to other drugs, medicaments and biological substances; Z95.0 Presence of cardiac pacemaker
CPT/HCPCS: 71045; 80053; 83880; 84484; 85025; 93005; 99284

== ENCOUNTER → 2022-01-01 13:09 | Outpatient (CLI) | payer OTHER, SELFPAY ==
[2022-01-01 13:35] LABS: Potassium 4.4 mmoL/L (3.5-5.1); Sodium 138 mmol/L (136-145)
[2022-01-01 13:36] LABS: Chloride 101 mmol/L (98-107)
[2022-01-01 13:38] LABS: Alanine Aminotransferase 23 U/L (12-78); Albumin/Globulin Ratio 1.5 (1.1-1.8); Alkaline Phosphatase 96 U/L (38-126); Anion Gap 11.4 mEq/L (5-15); Aspartate Amino Transferase 30 U/L (14-36); Bilirubin,Total 0.4 mg/dl (0.2-1.3); Blood Urea Nitrogen 7 mg/dl (7-17); Calcium 8.4 mg/dl (8.4-10.2); Carbon Dioxide 30 mmol/L (22.0-30.0); Estimated Glomerular Filt Rate 116 ml/min (>60); GFR (African American) 140 ML/MIN (>60); Globulin 2.7 g/dL (1.3-3.2); Glucose 90 mg/dl (74-100); Total Protein,Serum 6.7 g/dl (6.3-8.2)
[2022-01-01 13:57] LABS: Basophils # 0.1 K/mm3 (0-0.2); Basophils % 0.9 % (0.1-2.0); Eosinophils # 0.1 K/mm3 (0.0-0.4); Eosinophils % 2.4 % (0.1-12.0); Hematocrit 39.9 % (37.0-47.0); Hemoglobin 12.7 g/dL (12.2-16.2); Lymphocytes # 1.1 K/mm3 (0.7-4.5); Lymphocytes % 20.3 % (10-50); Mean Corpuscular Hemoglobin 27.2 pg (27.0-31.2); Mean Corpuscular Volume 85.1 fl (81-99); Mean Platelet Volume 8.8 fl (7.4-10.4); Monocytes # 0.3 K/mm3 (0.1-1.0); Monocytes % 5.2 % (1.7-9.3); Neutrophils # 3.9 K/mm3 (1.8-7.8); Neutrophils % 71.1 % (37.0-80.0); Platelet Count 325 K/mm3 (142-424); Red Blood Count 4.68 M/mm3 (4.20-5.40); Red Cell Distribution Width 15.8 % (11.5-17.5); White Blood Count 5.5 K/mm3 (4.8-10.8)
[2022-01-01 14:58] LABS: HCG Qualitative, Serum Negative (Negative)
== END ==
PROVIDERS: PCP Pediatrics; Visit Provider Obstetrics & Gynecology
DX: Z01.812 Encounter for preprocedural laboratory examination (principal); R10.2 Pelvic and perineal pain
CPT/HCPCS: 36415; 80053; 84703; 85025

== ENCOUNTER 2022-01-03 07:05 | Day surgery (SDC) | payer OTHER, SELFPAY ==
[2021-12-30 14:17] VITALS: BMI 34.0
[2022-01-03] VITALS (15 sets, daily range): BP systolic 117–165; BP diastolic 60–95; PULSE 69–96; RESP 14–22; TEMP 36.5–43; O2SAT 95–100
--- NOTE | 2022-01-03 08:30 | EXP.ANES.CKL ---
PFSH PFS Medical History Anxiety Cardiac pacemaker in situ Cholecystectomy planned Gallbladder disease History of COVID-19 History of gastroesophageal reflux (GERD) Surgical History History of History of esophagogastroduodenoscopy (EGD) History of prior ablation treatment History of surgery History of surgery S/P bariatric surgery [place] teeth removed Family History Brother Esophageal cancer Heart disease Mother Thyroid disorder Hypertension Grandmother Diabetes Heart disease Stomach cancer Father Heart disease COPD (chronic obstructive pulmonary disease) Social History Smoking Status: Former smoker smoking status stop date: 2007 alcohol intake: never substance use type: denies use current occupational status: employed Travel in the last 8 weeks: None caffeine: Yes [facility] Anesthesia Checklist Patient Identification Patient Identification: Arm Band and Verbal (Name & ) Structural Data Admitted From: Home Planned Operative Procedure/s: Lap. tubal Consent for Planned Operative Procedure(s) Verified: Yes NPO Status Verified Time NPO: 00:00 Chart Verification Results Verified: CBC, BMP and HCG Additional verifications Anesthesia Reactions: No Hx Blood Transfusions: No Blood Transfusion Reaction: No Airway Assessment C-Spine Mobility Assessed: Yes TMJ Mobility Assessed: Yes Dentition: Good Dentition Neurological Assessment Level of Consciousness: Awake Hx Seizures: No Numbness or tingling in extremities: No Anesthesia Plan Anesthesia Risk discussed: Yes Anesthesia Plan: Verified ASA Class: II Anesthesia Type: General
--- NOTE | 2022-01-03 09:59 | P.OP_ITS ---
Date of procedure: 01/03/22 Pre-op Diagnosis:: 1. Pelvic pain 2. Undesired fertility Post-op Diagnosis:: Same Procedure performed:: 1. IUD Removal 2. Laparoscopic Bilateral Tubal Ligation Surgeon:: Eloise Grimaldo MD LIBRARY MEDIA ASSISTANT:: Aida Hernandez Anesthesia: GETA Estimated blood loss (mL): 5 Operative findings:: Moderate omental adhesions to anterior abdominal wall Moderate vesico-uterine adhesions Grossly normal appearing ovaries and fallopian tubes Operative note:: The patient was taken to the operating room and general anesthesia was administered. She was prepped/draped in lithotomy position. Salazar retractors were placed in the vagina and the cervix was visualized. IUD strings were grasped with a ring forcep and the Paragard IUD was removed without complication. The cervix was dilated and a Humi uterine manipulator was placed without difficulty. Gloves were changed and attention was turned to the abdomen. A 5mm skin incision was made in the umbilical fold and the Verees needle was inserted through the peritoneum and into the abdominal cavity in standard fashion. The abdomen was insufflated with CO2 gas. A 5mm non-bladed trocar was inserted directly into the abdominal cavity and appropriate placement was confirmed with the laparoscope. No intra-abdominal injuries occurred during entry into the abdominal cavity, as confirmed visually with the laparoscope. There were extensive omental adhesions to anterior abdominal wall, inferior to umbilical trocar location, which initially limited visualization, however the laparoscope was able to be advanced around these adhesions to visualize the pelvic anatomy. The patient was placed in trendelenburg and a 8mm skin incision was made 2cm above the pubic symphysis. This incision was made left of midline due to abdominal wall adhesions located in the midline and right of the midline. A 8mm non-bladed trocar was inserted under direct visualization, without complication. The uterus was elevated out of the pelvis in order to better visualize the anatomy. A survey of the pelvis and abdomen revealed the findings noted above. The uterus was angled towards the patient right and the left fallopian tube was grasped and a Filshie clip was placed over the tube. The clip was noted to completely occlude the tube. The uterus was then angled towards the patient left, and the right fallopian tube was grasped and a Filshie clip was placed over the tube. The clip was noted to completely occlude the tube. The uterine manipulator was removed. The abdomen was then evacuated of gas and all trocars removed. The skin incisions were closed with 4-0 monocryl and Dermabond. The patient tolerated the procedure well. Sponge/lap/needle/instrument counts were correct at conclusion of procedure. She was taken out of lithotomy position and awakened from anesthesia, and was taken to the recovery room in stable condition. Condition: stable Disposition: PACU Specimens:: Paragard IUD Complications:: None
--- NOTE | 2022-01-03 10:02 | EXP.ANES.I ---
[facility] Anesthesia Record Part I Anesthesia Record I Intake, IV Amount: 400 Estimated blood loss (mL): 5 Urine output (mL): 50 Blood Pressure: 147/90 SaO2: 97 Pulse Rate: 96 Respiratory Rate: 20 Temperature: 98.4 F Patient is:: Drowsy Stable to PACU at:: 10:00
--- NOTE | 2022-01-03 10:41 | SUR.PHASEI ---
1036 called and gave detailed report to Kevin Song RN 1040 transported via stretcher to post op. vital signs stable. rates pain at a level 3. left in stable condition with Kevin Song RN at bedside.
--- NOTE | 2022-01-03 12:07 | P.PNANES_ITS ---
[facility] Anesthesia Record Part II Anesthesia Record Part II Discharge Time: 10:40 Destination: Surgical Day Care (OP Surgery) PACU nurse assessment reviewed?: Yes Patient Condition:: Good Anesthesia Complications:: None Swallowing reflex intact?: Yes Cyanosis?: No Blood Pressure: 132/68 Pulse Rate: 84 Temperature: 98.4 F Mental Status: Alert & Oriented Pain level:: 3 Nausea and/or vomitting:: None Intake, IV Amount: 0
== END 2022-01-03 11:15 | disposition home or self-care (01) ==
PROVIDERS: PCP Pediatrics; Visit Provider Obstetrics & Gynecology
PROC: 0UL74ZZ Occlusion of Bilateral Fallopian Tubes, Percutaneous Endoscopic Approach (ICD-10-PCS; CPT 58670; principal; 2022-01-03 08:30)
DX: Z30.2 Encounter for sterilization (principal); R10.2 Pelvic and perineal pain; Z79.899 Other long term (current) drug therapy
CPT/HCPCS: 58301; 58671; 96374; J0131; J2405

== ENCOUNTER → 2022-02-14 07:56 | Outpatient (CLI) | payer OTHER, SELFPAY ==
--- NOTE | 2022-02-14 07:57 | CT_ITS ---
FINAL REPORT TECHNIQUE: Axial images were obtained from the lung bases through the pubic symphysis before and after the administration of intravenous contrast. Oral contrast was administered. This study was performed with techniques to keep radiation doses as low as reasonably achievable (ALARA). Individualized dose reduction techniques using automated exposure control or adjustment of mA and/or kV according to the patient's size were employed. CLINICAL HISTORY: LLQP, Long Standing Pelvic Pain FINDINGS: Precontrast images demonstrate no evidence of nephrolithiasis or hydronephrosis. Abdomen: The lung bases are clear. The liver parenchyma is homogeneous. Postoperative changes are seen from gastric sleeve and from cholecystectomy. There is mild biliary duct dilatation favored to represent post cholecystectomy change. There is a 19 mm mass in the anterior pancreatic head worrisome for cystic neoplasm. The spleen, adrenal glands and kidneys are unremarkable. There is a small umbilical hernia containing fat. There is no evidence of bowel obstruction. Pelvis: The appendix is normal. The urinary bladder is unremarkable. There are mildly prominent periuterine veins of uncertain significance. A small amount of free fluid could be physiologic or reactive. IMPRESSION: 19 mm mass in the anterior pancreatic head worrisome for cystic neoplasm. Mildly prominent periuterine veins of uncertain significance. Pelvic congestion syndrome cannot be excluded. Reviewed, Interpreted and Dictated by Nadre Queen III, MD Transcribed by Nikita Ellison Authenticated and [facility]
== END ==
PROVIDERS: PCP Pediatrics; Visit Provider Nurse Practitioner Obstetrics & Gynecology
DX: R10.2 Pelvic and perineal pain (principal); R10.32 Left lower quadrant pain; Z98.51 Tubal ligation status
CPT/HCPCS: 74178; Q9967

== ENCOUNTER → 2022-06-13 11:59 | Outpatient (CLI) | payer BC, OTHER, SELFPAY ==
[2022-06-13 12:43] LABS: Basophils % 0.6 % (0.1-2.0); Eosinophils # 0.1 K/mm3 (0.0-0.4); Hemoglobin 13.5 g/dL (12.2-16.2); Lymphocytes # 0.9 K/mm3 (0.7-4.5); Lymphocytes % 19.6 % (10-50); Mean Corpuscular Hemoglobin 28.7 pg (27.0-31.2); Mean Corpuscular Volume 89.5 fl (81-99); Mean Platelet Volume 9.2 fl (7.4-10.4); Monocytes # 0.2 K/mm3 (0.1-1.0); Monocytes % 3.8 % (1.7-9.3); Neutrophils # 3.5 K/mm3 (1.8-7.8); Neutrophils % 73.1 % (37.0-80.0); Platelet Count 300 K/mm3 (142-424); Red Blood Count 4.69 M/mm3 (4.20-5.40); Red Cell Distribution Width 12.8 % (11.5-17.5); White Blood Count 4.8 K/mm3 (4.8-10.8)
[2022-06-13 14:10] LABS: Alanine Aminotransferase 29 U/L (12-78); Albumin Level 4.3 g/dl (3.5-5.0); Albumin/Globulin Ratio 1.9 (1.1-1.8); Alkaline Phosphatase 90 U/L (38-126); Anion Gap 7.1 mEq/L (5-15); Aspartate Amino Transferase 36 U/L (14-36); Bilirubin,Total 0.8 mg/dl (0.2-1.3); Blood Urea Nitrogen 9 mg/dl (7-17); Calcium 8.5 mg/dl (8.4-10.2); Carbon Dioxide 28 mmol/L (22.0-30.0); Chloride 104 mmol/L (98-107); Estimated Glomerular Filt Rate 143 ml/min (>60); GFR (African American) 173 ML/MIN (>60); Globulin 2.3 g/dL (1.3-3.2); Glucose 78 mg/dl (74-100); Potassium 4.1 mmoL/L (3.5-5.1); Sodium 135 mmol/L (136-145); Total Protein,Serum 6.6 g/dl (6.3-8.2)
[2022-06-13 14:29] LABS: HCG,Quantitative < 2 mIU/ml (0-5.42)
== END ==
PROVIDERS: PCP Internal Medicine; Visit Provider Obstetrics & Gynecology
DX: K66.0 Peritoneal adhesions (postprocedural) (postinfection) (principal); Z01.818 Encounter for other preprocedural examination
CPT/HCPCS: 36415; 80053; 84702; 85025

== ENCOUNTER 2022-06-20 06:13 | Inpatient (IN) | payer BC, OTHER, SELFPAY ==
[2022-06-19 09:06] VITALS: BMI 31.4
[2022-06-20] VITALS (27 sets, daily range): BP systolic 108–138; BP diastolic 59–82; PULSE 65–95; RESP 12–18; TEMP 36.2–43; O2SAT 97–100
--- NOTE | 2022-06-20 07:00 | P.PN_ITS ---
[facility] Disclaimer: The information contained in this section may have been updated after the patient was seen, as this information can be updated by other users. Medical History Abdominal adhesions Anxiety Cardiac pacemaker in situ Cholecystectomy planned Gallbladder disease History of COVID-19 History of gastroesophageal reflux (GERD) Pancreatitis Pelvic adhesions Pelvic congestion syndrome Sick sinus syndrome Surgical History History of History of esophagogastroduodenoscopy (EGD) History of prior ablation treatment History of surgery History of surgery Hx laparoscopic cholecystectomy Hx of tubal ligation S/P bariatric surgery [place] teeth removed Family History Brother Esophageal cancer Heart disease Mother Thyroid disorder Hypertension Grandmother Diabetes Heart disease Stomach cancer Father Heart disease COPD (chronic obstructive pulmonary disease) Social History Smoking Status: Former smoker smoking status stop date: 2007 alcohol intake: never substance use type: denies use current occupational status: employed Travel in the last 8 weeks: None caffeine: Yes [facility] Anesthesia Checklist Patient Identification Patient Identification: Arm Band and Family Structural Data Admitted From: Home Planned Operative Procedure/s: Total Abdominal Hysterrectomy Consent for Planned Operative Procedure(s) Verified: Yes Verified Documents: Surgical Consent and History and Physical NPO Status Verified Time NPO: 00:00 Additional verifications Patient : No Anesthesia Reactions: No Hx Blood Transfusions: No Blood Transfusion Reaction: No Cephalosporin Allergy: No Previous Colonoscopy: No Airway Assessment C-Spine Mobility Assessed: Yes TMJ Mobility Assessed: Yes Dentition: Good Dentition Neurological Assessment Level of Consciousness: Awake, Alert, Appropriate and Follows Commands Hx Seizures: No Anesthesia Plan Anesthesia Risk discussed: Yes ASA Class: II Anesthesia Type: General w/block Preoperative Comments Pre-Operative Comments: History of Gastric Bypass with 200 pound weight loss. Plan Tap block. Pacemaker for severe bradycardia. Hystory f Pancreatitis March 2017.
[2022-06-20 07:05] LABS: Coronavirus 19, PCR Not Detected (NotDetected); Influenza A, PCR Not Detected (NotDetected); Influenza B, PCR Not Detected (NotDetected)
--- NOTE | 2022-06-20 07:10 | P.CONPHA_ITS ---
Pharmacy Intervention Comments: MEDICATION RECONCILIATION COMPLETED ON PATIENT USING EXTERNAL FILL HISTORY FROM PHARMACY AND LIST FROM ORNAMENTAL IRON WORKER HELPER OFFICE. -ALL HIRSCHD
--- NOTE | 2022-06-20 07:10 | HMH.PHAINT1 ---
Pharmacy Intervention Comments: MEDICATION RECONCILIATION COMPLETED ON PATIENT USING EXTERNAL FILL HISTORY FROM PHARMACY AND LIST FROM IGNITION EXPERT OFFICE. -ALL HIRSCHD
--- NOTE | 2022-06-20 07:47 | EXP.HP ---
History of Present Illness *Admission Date: 06/20/22 *Reason for visit:: hysterectomy *History of present illness: 31 yo with chronic pelvic pain and dyspareunia Vascular congestion was reported on CT scan She was started on po progesterone but insurance would not cover this and she declined to pay for it out of pocket She desires definitive surgical management for pelvic pain, pelvic congestion with hysterectomy She has also been advised that pelvic congestion may not be the cause of dyspareunia and that there is no guarantee that hysterectomy will resolve this pain She has been counseled extensively about increased surgical risks with 3 previous c sections, gastric bypass and gastric sleeve, as well as pelvic adhesions noted on prior laparoscopy She has been advised of the various risks, including but not limited to bleeding, infection, damage to other organs and/or need for additional surgery She has also been advised that additional surgery with hysterectomy could result in additional adhesions She has been offered alternative medical management with po progesterone but insurance would not cover this and she will not pay for it out of pocket She desires removal of left ovary regardless of intra-operative findings If right ovary appears normal it will be preserved, but she desires removal of left ovary regardless, even if that results in BSO She is scheduled for NATHAN with possible BSO PFSH PFSH Disclaimer: The information contained in this section may have been updated after the patient was seen, as this information can be updated by other users. Medical History Abdominal adhesions Anxiety Cardiac pacemaker in situ Cholecystectomy planned Gallbladder disease History of COVID-19 History of gastroesophageal reflux (GERD) Pancreatitis Pelvic adhesions Pelvic congestion syndrome Sick sinus syndrome Surgical History (Updated 06/20/22 @ 11:25 by Eloise Grimaldo MD) History of History of esophagogastroduodenoscopy (EGD) History of prior ablation treatment History of surgery History of surgery Hx laparoscopic cholecystectomy Hx of tubal ligation S/P bariatric surgery [place] teeth removed Family History Brother Esophageal cancer Heart disease Mother Thyroid disorder Hypertension Grandmother Diabetes Heart disease Stomach cancer Father Heart disease COPD (chronic obstructive pulmonary disease) Social History Smoking Status: Former smoker smoking status stop date: 2007 alcohol intake: never substance use type: denies use current occupational status: employed Travel in the last 8 weeks: None caffeine: Yes Review of Systems Review of Systems Review of systems:: pertinent systems reviewed and negative unless documented below *Genitourinary Genitourinary: Reports pelvic pain Meds Home Medications and Allergies Home Medications Medication Instructions Recorded Confirmed Type cholecalciferol (vitamin D3) 50 50,000 unit PO WEEKLY Supplement 08/08/17 06/20/22 History mcg (2,000 unit) capsule multivitamin 1 tab PO DAILY Supplement 08/26/18 06/20/22 History ferrous sulfate 325 mg (65 mg 325 mg PO BID Supplement 04/18/21 06/20/22 History iron) tablet aspirin 81 mg capsule 81 mg PO DAILY HEART HEALTH 12/30/21 06/20/22 History calcium carbonate 500 mg calcium 500 mg PO DAILY Supplement 12/30/21 06/20/22 History (1,250 mg) tablet loratadine 10 mg tablet 10 mg PO DAILY Allergy symptoms 05/11/22 06/20/22 History pantoprazole 40 mg tablet,delayed 40 mg PO BID Acid reflux 05/11/22 06/20/22 History release New Prescriptions to Start Prescriptions: Allergies Allergy/AdvReac Type Severity Reaction Status Date / Time tuberculin, purified protein AdvReac Mild Verified 06/13/22 10:37 deriva NSAIDS (Non-Steroidal
--- NOTE | 2022-06-20 11:35 | EXP.ANES.II ---
[facility] Anesthesia Record Part II Anesthesia Record Part II Discharge Time: 11:00 Destination: Obstetric PACU nurse assessment reviewed?: Yes Patient Condition:: Good Anesthesia Complications:: None Swallowing reflex intact?: Yes Cyanosis?: No Blood Pressure: 132/73 Pulse Rate: 66 Temperature: 97.2 F Mental Status: Alert & Oriented Pain level:: 0 Nausea and/or vomitting:: None Intake, IV Amount: 0
--- NOTE | 2022-06-20 11:38 | EXP.OP.NOTE ---
Date of procedure: 06/20/22 Pre-op Diagnosis:: 1. Pelvic Pain 2. Dyspareunia 3. Pelvic Congestion 4. Abdominal/Pelvic Adhesions Post-op Diagnosis:: Same Procedure performed:: Total Abdominal Hysterectomy Left Salpingo-Oophorectomy Right Salpingectomy Surgeon:: Eloise Grimaldo MD [employer] Resource Teacher(s):: Rosemary Peña DO NURSERY NURSE:: Other Anesthesia: GETA Estimated blood loss (mL): 200 Operative findings:: Normal sized uterus without fibroids Normal appearing ovaries and fallopian tubes bilaterally Filshie clips occluding fallopian tubes Dense vesico-uterine adhesions (3 previous CS) Operative note:: The patient was taken to the operating room and general anesthesia was administered without difficulty. She was prepped and draped in the supine position. A Pfannenstiel skin incision was made with a scalpel through the previous scar and carried down to the underlying layer of fascia. The fascia was incised in the midline and extended laterally sharply. The rectus muscles were sharply dissected off the fascia and in the midline. The peritoneum was entered sharply, with good visualization of the underlying structures. The peritoneal incision was extended bluntly. A survey of the patient's pelvis and abdomen was performed, with the findings noted above. At this time, the patient was placed in Trendelenburg and an O'Eric - O'Ordonez retractor was placed in the abdomen; the bowel was packed with moist laparotomy sponges. A double tooth tenaculum was placed on the uterine fundus and the uterus was elevated out of the pelvis. No fibroids or other visible uterine lesions were noted. The round ligaments were identified and transected and suture-ligated. The anterior lip of the broad ligament was dissected medially on both sides and the bladder flap was created digitally. The posterior leaf of the broad ligament was dissected until the ureters were able to be identified on either side and noted to be free of the forthcoming adnexal pedicles. Infundibulopelvic ligaments were doubly clamped transected and suture ligated with excellent hemostasis noted. The left IP was ligated lateral to the ovary and the right IP was ligated medial to the ovary. The right fallopian tube was excised using the Ligasure and the specimens were set aside for pathology. The uterine arteries were skeletonized on either side, and were clamped and transected, using both the ligasure and suture, with excellent hemostasis. The bladder flap was sharply and bluntly dissected off the lower uterine segment with excellent hemostasis and without injury to the bladder. The cardinal and uterosacral ligaments were clamped and transected on both sides, alternating between the Ligasure and suture, until the vaginal mucosa was entered. The vaginal incision was extended circumferentially with the Jorganson scissors; the uterus and cervix were removed abdominally and sent for pathology, along with the fallopian tubes and left ovary. The vaginal cuff angles were closed 0 Vicryl [id number] sutures and were transfixed to the ipsilateral cardinal and uterosacral ligaments. The remainder of the vaginal cuff was closed with 0 Vicryl in a running fashion. The pelvis was copiously irrigated with a solution of sterile water. The cuff was hemostatic, but Candi was placed over the cuff for any postoperative oozing. All pedicles were reexamined and remained hemostatic. The right ovary was wrapped in Intercede to protect it from postoperative adhesions. All instruments were removed from the patient's abdomen. The fascia was closed with #1 Vicryl in a running fashion. The subcutaneous fat was closed The skin was closed with vicente. The patient tolerated the procedure well; sponge/lap/needle and instrument counts were correct ?2. TAP block was placed by anesthesia after the skin was closed. She was taken to the recovery room awake in stable condition. Estimated blood loss: 200 cc. Condition: s
[2022-06-20 11:40] LABS: Microscopic,Cath URINE MICROSCOPIC (MICROSCOPIC)
[2022-06-20 11:42] LABS: Appearance,Urine/Cath CLEAR (Clear); Bilirubin,Cath Negative (Negative); Blood, Urine/Cath Negative (Negative); Color,Urine/Cath YELLOW (Yellow); Glucose,Urine/Cath (UA) Negative (Negative); Ketones,Urine/Cath Negative (Negative); Leukocyte Esterase,Cath Negative (Negative); Nitrate,Cath Negative (Negative); PH,Urine/Cath 6.5 (5.0-8.5); Protein,Urine/Cath Negative (Negative); Urobilinogen,Cath 0.2 EU/dl (0.2)
[2022-06-20 12:02] LABS: Bacteria,Urine/Cath TRACE /lpf; Squamous Epithelial Ur./Cath Occasional #/hpf (0-5)
--- NOTE | 2022-06-20 17:23 | PC.NURSE ---
NO ACUTE CHANGES FROM PREVIOUS ASSESSMENT, BILATERAL SCUDDS REMAIN IN PLACE, VSS. LTV T&T DRESSING INTACT WITH SEROSANGINOUS DRAINAGE (UNCHANGED), PAIN LEVEL LESS THAN 5 WITH PRN MEDICATION. F/C REMAINS IN PLACE DRAINING TO BEDSIDE. INCENTIVE SPIROMETER GIVEN AND EXPLAINED. V/U. CALL LIGHT WITHIN REACH.
[2022-06-21] VITALS (9 sets, daily range): BP systolic 102–120; BP diastolic 46–65; PULSE 70–81; RESP 16–18; TEMP 36.6–37.1; O2SAT 95–100
--- NOTE | 2022-06-21 04:24 | PC.NURSE ---
Patient has required pain management between doses, however patient has been able to tolerate PO oxycodone. Patient continues to report pelvic pressure and patient was educated that was normal. Patient dressing remains intact and clean, with no new SS fluid noted. Patient alert and oriented x3. Patient lungs are CTA. Bowel sounds where slightly hypoactive this morning.
[2022-06-21 06:42] LABS: Hematocrit 33.3 % (37.0-47.0); Hemoglobin 10.7 g/dL (12.2-16.2)
--- NOTE | 2022-06-21 08:02 | PC.NURSE ---
DR ATKINSON AT BEDSIDE FOR ROUNDS, REPORT GIVEN.
--- NOTE | 2022-06-21 08:16 | EXP.ACUTE.PN ---
Subjective *Date: 06/21/22 *Time: 08:16 Interval history: POD # 1 s/p NATHAN, BS, left oophorectomy Resting comfortably. Pain is controlled with PO medication. No vaginal bleeding. Kothari catheter removed this morning, she has not yet voided. Passing flatus. Tolerating regular diet. Denies fever/chills, chest pain and shortness of breath. No headaches, dizziness or lower extremity swelling. Medical Exam Vital signs and Labs for Last 24 Hours: Vital Signs Temp Pulse Pulse Resp BP BP Pulse Ox 06/21/22 07:38 99 06/21/22 07:59 98.6 F 76 17 118/51 L 100 06/21/22 07:40 16 06/21/22 04:00 98.4 F 77 18 102/46 L 95 06/20/22 23:32 98.5 F 71 17 128/67 97 06/20/22 20:36 98.1 F 95 H 16 135/78 98 06/20/22 20:10 100 06/20/22 18:15 98.0 F 74 17 121/74 100 06/20/22 17:31 16 06/20/22 17:26 97.9 F 81 17 120/74 99 06/20/22 16:15 97.8 F 77 17 118/74 99 06/20/22 15:47 17 06/20/22 15:25 98.0 F 78 18 116/78 99 06/20/22 14:15 97.8 F 80 16 125/74 99 06/20/22 13:45 97.9 F 75 16 126/71 100 06/20/22 13:15 98.0 F 71 16 108/59 L 100 06/20/22 12:45 98.0 F 68 16 110/65 100 06/20/22 12:52 16 06/20/22 12:15 97.8 F 69 16 125/68 99 06/20/22 12:00 97.8 F 68 16 127/64 99 06/20/22 11:45 97.8 F 67 16 125/69 99 06/20/22 11:30 97.5 F L 65 18 127/71 99 06/20/22 11:15 97.5 F L 72 16 118/59 L 99 06/20/22 11:58 16 06/20/22 11:00 66 16 132/73 98 04/18/23 10:50 71 16 129/74 99 06/20/22 10:40 75 16 138/82 98 06/20/22 10:30 97.2 F L 83 12 137/78 99 06/20/22 11:37 97.2 F L 66 132/73 Intake and Output 06/20/22 06/21/22 06/21/22 23:59 07:59 15:59 Intake Total 1496 / 1496 Output Total 600 / 600 650 / 650 Balance -600 / -600 846 / 846 Intake: Intake, Total IV Amount 1496 / 1496 Cefazolin Sodium 1 gm In 0.9 % 100 / 100 Sodium Chloride 50 ml @ 100 mls /hr IV Q8H [facility] Rx#:[id number] Lactated Ringers 1000ML 1,000 1396 / 1396 ml @ 125 mls/hr IV .Q8H [facility] Rx# :[id number] Output: Output, Urine Amount 600 / 600 450 / 450 Output, Urine Amount (Catheter) 200 / 200 Kothari 200 / 200 Laboratory Results - last 24 hr 06/20/22 07:40: Urine Color Yellow, Urine Appearance Clear, Urine pH 6.5, Ur Specific [place] 1.020, Urine Protein Negative, Urine Glucose (UA) Negative, Urine Ketones Negative, Urine Blood Negative, Urine Nitrate Negative, Urine Bilirubin Negative, Urine Urobilinogen 0.2, Ur Leukocyte Esterase Negative, Urine RBC None, Urine WBC None, Ur Squamous Epith Cells Occasional, Urine Bacteria Trace 06/21/22 06:35: Hgb 10.7 L, Hct 33.3 L I & O for Labs for Last 24 Hours: Intake & Output 06/18/22 06/19/22 06/20/22 06/21/22 23:59 23:59 23:59 23:59 Intake Total 0 / 0 1496 / 1496 Output Total 600 / 600 650 / 650 Balance -600 / -600 846 / 846 Weight 161 lb Head: Present atraumatic and normocephalic ENT: Present normal exam Neck: Present normal inspection and full ROM Respiratory: Present CTA bilaterally and normal respiratory effort Cardiac: Present Reg Rate and Rhythm GI: Present soft and normal bowel sounds; Absent distention or tenderness Comments:: Bandage covering pfannenstiel without significant drainage Rectal (female): Present deferred (female): Present deferred Extremities: Present normal inspection and full ROM; Absent edema or calf tenderness Neuro: Present alert, awake, oriented x 3 and moves all extremities Assessment and Plan *Assessment and plan (1) S/P abdominal hysterectomy: Problem Comment: BRIANDA EVANS, left oophorectomy 06/20/22 Status: Acute Category: Surgical Code(s): Z90.710 - Acquired absence of both cervix and uterus (2) Pelvic pain in female: Status: Acute Category: Medical Code(s): R10.2 - Pelvic and per
--- NOTE | 2022-06-21 15:00 | PC.NURSE ---
LTV DRESSING REMOVED AT THIS TIME. INCISION IS APPROXIMATED WITH ALL MONIE INTACT. 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 PT TOLERATED WELL.
--- NOTE | 2022-06-21 16:31 | PC.NURSE ---
NO ACUTE CHANGES UPON REASSESSMENT. PT HAS REPORTED ADEQUATE PAIN CONTROL WITH PO MEDS. VSS CHARTED. LUNGS CTA BILATERALLY, BOWEL SOUNDS NORMOACTIVE IN ALL QUADS, INCISION REMAINS CDI. PT HAS AMBULATED IN HALLWAY MULTIPLE TIMES. LINENS CHANGED THIS SHIFT. CALL LIGHT REMAINS WITHIN REACH.
--- NOTE | 2022-06-21 21:58 | PC.NURSE ---
Addendum entered by Daniela Whittington RN 06/22/22 00:18: Patient ended up ambulating around unit 2 times. Original Note: Patient ambulating around unit at this time. by side.
[2022-06-22 04:00] VITALS: BP 97/44; PULSE 74; RESP 18; TEMP 36.8; O2SAT 96
--- NOTE | 2022-06-22 04:02 | PC.NURSE ---
Patient has rested well tonight. Patient lungs CTA. Bowel sounds are normoactive. Incision is clean and dry. No drainage noted. No acute changes have occurred this far.
--- NOTE | 2022-06-22 08:05 | PC.NURSE ---
Pt and pt's sleeping soundly at this time.
[2022-06-22 09:11] VITALS: BP 109/72; PULSE 74; RESP 16; TEMP 36.8; O2SAT 97
--- NOTE | 2022-06-22 12:57 | EXP.DC.SUM ---
General Admission date:: 06/20/22 Discharge date: 06/22/22 HPI HPI HPI: 31 yo with chronic pelvic pain and dyspareunia Vascular congestion was reported on CT scan She was started on po progesterone but insurance would not cover this and she declined to pay for it out of pocket She desires definitive surgical management for pelvic pain, pelvic congestion with hysterectomy She has also been advised that pelvic congestion may not be the cause of dyspareunia and that there is no guarantee that hysterectomy will resolve this pain She has been counseled extensively about increased surgical risks with 3 previous c sections, gastric bypass and gastric sleeve, as well as pelvic adhesions noted on prior laparoscopy She has been advised of the various risks, including but not limited to bleeding, infection, damage to other organs and/or need for additional surgery She has also been advised that additional surgery with hysterectomy could result in additional adhesions She has been offered alternative medical management with po progesterone but insurance would not cover this and she will not pay for it out of pocket She desires removal of left ovary regardless of intra-operative findings If right ovary appears normal it will be preserved, but she desires removal of left ovary regardless, even if that results in BSO She is scheduled for NATHAN with possible BSO Hospital Course Hospital Course Hospital Course: Postop course uncomplicated She is discharged home on POD #2, in stable condition She is ambulating and voiding without difficulty She is tolerating a regular diet Pain control has been sufficient, and zofran has helped relieve mild nausea with her pain medication Postop labs reviewed and appropriate She will return for staple removal in 2-3 days and f/u in office in 2 weeks Exam Data for Last 24 hours Vital signs and Labs for Last 24 Hours: Temp Pulse Resp BP Pulse Ox 98.3 F 74 16 109/72 L 97 06/22/22 09:11 06/22/22 09:11 06/22/22 09:11 06/22/22 09:11 06/22/22 09:11 I & O for Last 24 hours: Intake & Output 06/20/22 06/21/22 06/22/22 06/23/22 11:59 11:59 11:59 11:59 Intake Total 0 / 0 1496 / 1496 Output Total 1500 / 1800 1200 / 1200 Balance 0 / 0 -4 / -304 -1200 / -1200 Constitutional Constitutional: no acute distress *Routine HEENT Exam Head: Present normocephalic Eye: Absent conjunctival icterus or scleral injection ENT: Present mucous membranes moist *Routine Neck Exam Neck: Present supple *Routine Respiratory Exam Respiratory: Present CTA bilaterally *Routine Cardiovascular Exam Cardiovascular: Present RRR *Routine Abdominal Exam Abdominal: Present soft; Absent distended Comments: mild abdominal tenderness, appropriate for postop status *Routine Rectal Exam Patient deferred: visual exam and digital exam *Routine Exam Patient deferred: external exam *Routine Extremities Exam Extremities: Present edema *Routine Skin Exam Skin: Present intact and dry Comments: Incision intact without erythema or purulent drainage *Routine Neurological Exam Neurological: Present alert and oriented X3 Routine Psychiatric Exam Psychiatric: Present normal affect; Absent depressed DS: Diagnosis Discharge Diagnosis (1) S/P abdominal hysterectomy: Status: Acute Problem details: NATHAN, BS, left oophorectomy 06/20/22 (2) Pelvic pain in female: Status: Acute (3) Left lower quadrant pain: Status: Acute (4) Dyspareunia: Status: Acute (5) Acute blood loss anemia: Status: Acute Meds Home Medications and Allergies Home Medications Medication Instructions Recorded Confirmed Type cholecalciferol (vitamin D3) 50 50,000 unit PO WEEKLY Supplement 08/08/17 06/20/22 History mcg (2,000 unit) capsule multivitamin 1 tab PO DAILY Supplement 08/26/18 06/20/22 History ferrous sulfate 325 mg (65 mg 325 mg PO BID Supplement 04/18/21 06/20/22 History iron) tablet
--- NOTE | 2022-06-24 12:29 | PC.NURSE ---
Pt. here for staple removal. All vicente removed, skipping every other staple until all were removed. Left side of LTV incision opened 0.5cm when last staple removed. Steri strips and mastistol placed over LTV left side reenforced well with steri strips. Pt. educated on watching left side for dehiscence. Pt. v/u. Dr. Peña notified of left side of LTV, opening up 0.5cm. MD v/u, orders received to make sure left side is reenforced with steri strips. Order read back and verified.
== END 2022-06-22 13:19 | disposition home or self-care (01) | DRG 743 ==
LOC: OB 20:52
PROVIDERS: Admitting Provider Obstetrics & Gynecology; PCP Pediatrics; Visit Provider Obstetrics & Gynecology
PROC: 0UT90ZZ Resection of Uterus, Open Approach (ICD-10-PCS; CPT 58150; principal; 2022-06-20 07:30)
DX: N94.10 Unspecified dyspareunia (principal); R10.2 Pelvic and perineal pain; Z87.891 Personal history of nicotine dependence; Z20.822 Contact with and (suspected) exposure to COVID-19; G89.29 Other chronic pain
CPT/HCPCS: 58150; 36415; 81001; 85014; 85018; 96374; C9290; C9803; J2405; U0003; U0005

== ENCOUNTER 2024-05-30 15:12 | Outpatient (CLI) | payer MEDICAID, SELFPAY ==
[2024-05-30 16:40] LABS: Thyroid Stimulating Hormone 1.76 uIU/mL (0.465-4.68)
[2024-05-31 08:45] LABS: Estradiol 98.5 pg/mL (.); FSH 2.8 mIU/mL (.)
== END 2024-05-30 23:59 | disposition home or self-care (01) ==
LOC: LAB 15:13
PROVIDERS: PCP Pediatrics; Visit Provider Obstetrics & Gynecology
DX: N95.1 Menopausal and female climacteric states (principal); R63.5 Abnormal weight gain; Z90.710 Acquired absence of both cervix and uterus
CPT/HCPCS: 36415; 82670; 83001; 84443

== ENCOUNTER 2024-07-17 14:08 | Outpatient (CLI) | payer MEDICAID, SELFPAY | END 2024-07-17 23:59 | disposition home or self-care (01) | LOC: LAB 14:10 | PROVIDERS: PCP Pediatrics; Visit Provider Student in an Organized Health Care Education/Training Program | DX: M54.51 Vertebrogenic low back pain (principal) | CPT/HCPCS: 87081 ==

== ENCOUNTER 2024-11-28 14:01 | Outpatient (CLI) | payer MEDICAID, SELFPAY ==
--- OUTSIDE RECORDS SUMMARY | 2024-10-09 11:45 | XMS_ITS | Encounter Summary ---
Author Organization [facility] Address [address] [place] [address] Care Team Providers Care Airborne Operations Superintendent Name Role Phone José Norris MD Primary Care Provider [phone] Reason for Visit * Reason Comments Primary Care Follow-Up 1 mo f/u Encounter Details Date Type Department Care Team (Late st Contact Info) Description 10/09/2024 11:45 AM EDT Office Visit [facility] [address] [place] [address] [place] [address] José Norris MD [address] [place] [address] [place] [address] Class 1 obesity due to excess calories without serious comorbidity with body mass index (BMI) of 34.0 to 34.9 in adult (Primary Dx); Iron deficiency anemia secondary to inadequate dietary iron intake; SVT (supraventricular tachycardia); Vitamin B 12 deficiency; Anxiety and depression Social History Tobacco Use Types Packs/Day Years Used Date Smoking Tobacco: Former Cigarettes 0.3 1 2 007 - 2007 Passive Smoke Exposure: Never Smokeless Tobacco: Never Comments:12 years ago Alcohol Use Standard Drinks/Week Comments Never 0 (1 standard drink = 0.6 oz pur e alcohol) AUDIT-C Answer Date Recorded Q1: How often do you have a drink containing alc ohol? Never 08/19/2019 Average Number of Drinks Not on file 020 Frequency of Binge Drinking Not on file 08/03 PHQ-2 Answer Date Recorded Retired PHQ-9: Brief Depression Severity Measure Score 0 04/19/2022 PHQ-2 Answer Date Recorded Patient Health Questionnaire-2 Score 0 04/21/2024 Comments No Sex and Gender Information Value Date Recorded Sex Assigned at Female 05/17/2024 10:37 PM EDT Legal Sex Female 1:38 PM EDT Gender Identity Not on file Sexual Orientation Straight 05/17/2024 10 :37 PM EDT documented as of this encounter Last Filed Vital Signs Vital Sign Reading Time Taken Comments Blood Pressure 112/84 10/09/2024 11:54 AM EDT Pulse 76 10/09/2024 11:54 AM EDT Temperature 37.4 C (99.3 F) 10/09/2024 11:54 AM EDT Respiratory Rate 18 10/09/2024 11:54 AM EDT Oxygen Saturation 97% 10/09/2024 11:54 AM EDT Inhaled Oxygen Concentration - - Weight 79.9 kg (176 lb 3.2 oz) 10/09/2024 11:54 AM EDT Height 152.4 cm (5') 10/09/2024 11:54 AM EDT Body Mass Index 34.41 10/09/2024 11:54 AM EDT documented in this encounter Progress Notes * José Norris MD - 10/09/2024 12:33 PM EDTAssociated Problem(s): Vitamin B 12 deficiency Low Vitamin B 12 with previous replacement. Unsure exact previous levels but vitamin B12 level normal at 648 on 03/13/2023. No indication for changing therapy. recheck vitamin B12 level with blood work04/21/2024 in good range at 531. Of note when she had rechecked her blood counts in July 2024 with her bariatric surgeon, they noticed that her iron levels were getting lower again and her vitamin B12 is lower again, she has resumed replacement therapy, and I will recheck both today with CBC, iron, ferritin, and vitamin B12 level on 09/10/2024, which were all in good range and specifically the vitamin B12 level was at normal range of 720. No intervention necessary. * José Norris MD - 10/09/2024 12:33 PM EDTAssociated Problem(s): SVT (supraventricular tachycardia) Status post pacemaker placement by Dr. Vincent. Evaluations by Dr. Vincent previously, including non-concerning echocardiogram from 03/30/2016, including ejection fraction between 65 and 70%. She also had Holter monitor which showed SVT, status post ablation in 2016, with transient improvement in symptoms. Ultimately, with recurrent bradycardic episodes, 08/25/[address] [employer] AAIR pacemaker with a loop recorder removal secondary to bradycardia due to nonreversible symptomatic sinus node dysfunction. Regarding hypersomnia evaluation, negative for strep sleep apnea but she was previouslyplaced Provigil for daytime fatigue/sleepiness, although no longer using. Of note, with SVT historyincluding ablation and subsequent pacemaker placement, she notably tolerated the phentermine use inspring 2023 without any concerns. Keep follow-up with cardiology. With SVT history including ablation and subsequent pacemaker placement, she continues to have no side effects of palpitations and continues as appropriate for phentermine use, tolerated initially spring 2023 and again another round of phentermine as of July 2024. Caution any extra use of caffeine which that exacerbate. No new concerns as of 10/09/2024. * José Norris MD - 10/09/2024 12:33 PM EDTAssociated Problem(s): Class 2 obesity due to excess calories without serious comorbidity with bodymass index (BMI) of 35.0 to 35.9 in adult BMI in the mid 30s range, long-standing difficulty with her weight, status post bariatric surgery in [place] April 2017 with resultant 90 pound weight loss and some variable weight since that time is currently doing quite well with her weight in the 160 pounds range. Of note, due to reflux breakthrough, and what appears to be lost functionality of the gastric sleeve, status post gastric bypass revision after the initial bariatric surgery, with resultant further weight loss. As a part in 2024, she had some gradually increasing weight of about 15 pounds over the last 6 to 9 months, partlyrelated to some slack in diet but she is having trouble improving again. She would be potentially interested in GLP-1 class of medicine weight loss but not covered by insurance. Previous use of phentermine most recently as of summer 2023 did give benefit, she tolerated. Of note, while she does have history of SVT with pacemaker, she has had ablation and as such is appropriate for phentermine, as the GLP-1 class was not covered. Patient was agreeable and as such we initiated on 07/09/2024 with ph entermine 37.5 mg half tablet in the morning half tablet midday, now completing her third month of therapy with modest 4 pound weight loss but she is now having more activity level and she would be agreeable to fourth month. As such prescription provided for fourth and final month of phentermine 37.5 mg prescribed again at half tablet prior to breakfast and lunch, number 30 tablets today on 10/09/2024. Will follow-up in 7 months, sooner if needed reinforced importance of ongoing improvement in diet activity level and pursuit of weight loss. As will be completing with final month of therapy, follow-up with her next physical in 7 months. * José Norris MD - 10/09/2024 12:32 PM EDTAssociated Problem(s): Iron deficiency anemia Most recent blood counts 04/21/2024 with hemoglobin 14.8, hematocrit 45.1 and MCV 93 with iron normal at 112 and ferritin normal at 28. Previous hemoglobin 14, hematocrit 40.6, MCV 91, previous hemoglobin hematocrit of 13.6/41.5 on 03/22/2022, 10.7 and 33.7 on 03/25/2022 respectively. Also good urine,ferritin and B12 level with 03/13/2023 blood work generally, she continues on iron tablet coadministered with vitamin C daily. Of note when she had rechecked her blood counts in July 2024 with her bariatric surgeon, they noticed that her iron levels were getting lower again and her vitamin B12 is lower again, as such I checked on 09/10/2024 CBC, iron, ferritin, and vitamin B12 level on 09/10/2024, and they are all in good range * José Norris MD - 10/09/2024 12:27 PM EDTAssociated Problem(s): Anxiety and depression Diagnosis in approximate 2015, for which she had benefit on fluoxetine. Some breakthrough anxiety more so than depressive symptoms as of visit 03/23/2023 with initiation and good response to initiation of Lexapro 10 mg tablet daily, buspirone 7.5 mg twice daily, with no headache, mental fogginess, stomach upset, but unfortunately buspirone seems to cause some delayed orgasm pattern, such she has stopped it. As such with some ongoing stressors as of 04/21/2024, especially with start of nursing school, we increased Lexapro to 20 mg daily on 04/21/2024 and we added Wellbutrin XL 150 mg daily. She continues with stability on her regimen, feels she continues to handle stressors overall well and is wanting to continue unchanged. She has not seen an exacerbation of symptoms with use of phentermine.We will continue unchanged. No SI/HI. Continue to reinforce the importance of lifestyle modifications to benefit mood including pursuit of enjoyable activities, regular exercise, good communication/counseling. No new concerns as of 10/09/2024, including with the use of phentermine. * José Norris MD - 10/09/2024 11:45 AM EDT Images from the original note were not included. Office Note Name: Saundra Vela : 1990 Chief Complaint Primary Care Follow-Up (1 mo f/u) Subjective History of Present Illness: Saundra Vela is a 34 y.o. female who presents today for follow-up visit for multimedical problems, notably related to weight pattern. Completing third month of phentermine therapy where she is now lost 4 pounds doing better, and she had a procedure in the interim over the months which did limither activity but she is now doing better and feels she can do even better with the fourth and final month of therapy. Also last month's visit we did recheck her vitamin B12 level and iron levels which had normalized, she continues replacement unchanged. With her phentermine notably she is not having any breakthrough anxiety, no triggering of any palpitations in context of her history of SVT pattern. 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;Service: Cardiology; Laterality: N/A; SECTION CHOLECYSTECTOMY D & C WITH SUCTION GASTRIC SLEEVE LAPAROSCOPIC HYSTERECTOMY OTHER SURGICAL HISTORY loop recorder TUBAL ABDOMINAL LIGATION Bilateral Removal of only the left ovary Family History Problem Relation Age of Onset Thyroid disease Mother Hyperthyroidism Mother COPD Father Esophageal cancer Brother Sleep apnea Maternal Grandmother Heart disease Maternal Grandmother Diabetes Maternal Grandmother Hypertension Maternal Grandmother COPD Maternal Grandfather Heart failure Paternal Grandmother Heart disease Other Diabetes Other Stomach cancer Other Vital Signs BP 112/84 (BP Location: Left arm, Patient Position: Sitting, Cuff Size: Adult) Pulse 76 Temp 99.3 ??F (37.4 ??C) (Temporal) Resp 18 Ht 152.4 cm (60 ) Wt 79.9 kg (176 lb 3.2 oz) SpO2 97% BMI 34.41 kg/m?? Estimated body mass index is 34.41 kg/m?? as calculated from the following: Height as of this encounter: 152.4 cm (60 ). Weight as of this encounter: 79.9 kg (176 lb 3.2 oz). Physical Exam Constitutional: General: She is not in acute distress. Appearance: Normal appearance. She is obese. She is not ill-appearing, toxic- appearing or diaphoretic. HENT: Right Ear: Tympanic membrane, ear canal and external ear normal. Left Ear: Tympanic membrane, ear canal and external ear normal. Nose: Nose normal. No rhinorrhea. Mouth/Throat: Mouth: Mucous membranes are moist. Pharynx: Oropharynx is clear. No oropharyngeal exudate or posterior oropharyngeal erythema. Neck: Vascular: No carotid bruit. Cardiovascular: Rate and Rhythm: Normal rate and regular rhythm. Pulses: Normal pulses. Heart sounds: Normal heart sounds. No murmur heard. No friction rub. No gallop. Pulmonary: Effort: Pulmonary effort is normal. No respiratory distress. Breath sounds: Normal breath sounds. No stridor. No wheezing. Musculoskeletal: Cervical back: Neck supple. No tenderness. Right lower leg: No edema. Left lower leg: No edema. Lymphadenopathy: Cervical: No cervical adenopathy. Skin: General: Skin is warm and dry. Capillary Refill: Capillary refill takes less than 2 seconds. Neurological: General: No focal deficit present. Mental Status: She is alert and oriented to person, place, and time. Mental status is at baseline. Psychiatric: Mood and Affect: Mood normal. Behavior: Behavior normal. Thought Content: Thought content normal. POCT Results (if applicable): Results for orders placed or performed in visit on 09/30/24 Remote Device Check Collection Time: 09/30/24 4:00 AM Result Value Ref Range Date Time Interrogation Session [id number] Type Interrogation Session Remote Scheduled Implantable Pulse Generator Vice [employer] Implantable Pulse Generator Type IPG Implantable Pulse Generator Model 1272 Assurity MRI(TM) Implantable Pulse Generator Serial Number [id number] Implantable Pulse Generator Implant Date 20190825 Battery Remaining Percentage 63.00 % Battery Remaining Longevity 79.0 mo Battery Voltage 3.010 Battery STRUCTURAL LAYOUT WORKER Trigger 2.600 Battery Status Middle of Service Emile Statistic RA Percent Paced 46.00 Atrial Tachy Statistic AT/AF [place] Percent 1.00 Lead Channel RA Sensing Intrinsic Amplitude 5.000 Lead Channel Setting RA Sensing Sensitivity 0.50 Lead Channel RA Impedance Value 410 Lead Channel RA Pacing Threshold Amplitude 0.500 Lead Channel RA Pacing Threshold Pulse Width 0.5 Lead Channel RA Measurements Date and Time 20240930 Lead Channel Setting RA Pacing Amplitude 1.500 Lead Channel Setting RA Pacing Pulse Width 0.5 Emile Setting Mode (NBG Code) AAIR Emile Setting Lower Rate Limit 70 Emile Setting AT Mode Switch Rate 180 Emile Setting Maximum Sensor Rate 130 Lead Channel Setting RV Sensing Polarity Bipolar Lead Channel Setting RV Pacing Polarity Bipolar Lead Channel RA Pacing Threshold Polarity Bipolar Assessment and Plan Diagnoses and all orders for this visit: 1. Class 1 obesity due to excess calories without serious comorbidity with body mass index (BMI) of34.0 to 34.9 in adult (Primary) Assessment & Plan: BMI in the mid 30s range, long-standing difficulty with her weight, status post bariatric surgery in [place] April 2017 with resultant 90 pound weight loss and some variable weight since that time is currently doing quite well with her weight in the 160 pounds range. Of note, due to reflux breakthrough, and what appears to be lost functionality of the gastric sleeve, status post gastric bypass revision after the initial bariatric surgery, with resultant further weight loss. As a part in 2024, she had some gradually increasing weight of about 15 pounds over the last 6 to 9 months, partlyrelated to some slack in diet but she is having trouble improving again. She would be potentially interested in GLP-1 class of medicine weight loss but not covered by insurance. Previous use of phentermine most recently as of summer 2023 did give benefit, she tolerated. Of note, while she does havehistory of SVT with pacemaker, she has had ablation and as such is appropriate for phentermine, as the GLP-1 class was not covered. Patient was agreeable and as such we initiated on 07/09/2024 with phentermine 37.5 mg half tablet in the morning half tablet midday, now completing her third month of therapy with modest 4 pound weight loss but she is now having more activity level and she would be agreeable to fourth month. As such prescription provided for fourth and final month of phentermine 37.5mg prescribed again at half tablet prior to breakfast and lunch, number 30 tablets today on 10/09/2024. Will follow-up in 7 months, sooner if needed reinforced importance of ongoing improvement in dietactivity level and pursuit of weight loss. As will be completing with final month of therapy, follow-up with her next physical in 7 months. Orders: - phentermine (Adipex-P) 37.5 MG tablet; Take 0.5 tablets by mouth 2 (Two) Times a Day. Dispense: 30 tablet; Refill: 0 2. Iron deficiency anemia secondary to inadequate dietary iron intake Assessment & Plan: Most recent blood counts 04/21/2024 with hemoglobin 14.8, hematocrit 45.1 and MCV 93 with iron normal at 112 and ferritin normal at 28. Previous hemoglobin 14, hematocrit 40.6, MCV 91, previous hemoglobin hematocrit of 13.6/41.5 on 03/22/2022, 10.7 and 33.7 on 03/25/2022 respectively. Also good urine,ferritin and B12 level with 03/13/2023 blood work generally, she continues on iron tablet coadministered with vitamin C daily. Of note when she had rechecked her blood counts in July 2024 with her bariatric surgeon, they noticed that her iron levels were getting lower again and her vitamin B12 is lower again, as such I checked on 09/10/2024 CBC, iron, ferritin, and vitamin B12 level on 09/10/2024, and they are all in good range 3. SVT (supraventricular tachycardia) Assessment & Plan: Status post pacemaker placement by Dr. Vincent. Evaluations by Dr. Vincent previously, including non-concerning echocardiogram from 03/30/2016, including ejection fraction between 65 and 70%. She also had Holter monitor which showed SVT, status post ablation in 2016, with transient improvement in symptoms. Ultimately, with recurrent bradycardic episodes, 08/25/[address] [employer] AAIR pacemaker with a loop recorder removal secondary to bradycardia due to nonreversible symptomatic sinus node dysfunction. Regarding hypersomnia evaluation, negative for strep sleep apnea but she was previouslyplaced Provigil for daytime fatigue/sleepiness, although no longer using. Of note, with SVT historyincluding ablation and subsequent pacemaker placement, she notably tolerated the phentermine use inspring 2023 without any concerns. Keep follow-up with cardiology. With SVT history including ablation and subsequent pacemaker placement, she continues to have no side effects of palpitations and continues as appropriate for phentermine use, tolerated initially spring 2023 and again another round of phentermine as of July 2024. Caution any extra use of caffeine which that exacerbate. No new concerns as of 10/09/2024. 4. Vitamin B 12 deficiency Assessment & Plan: Low Vitamin B 12 with previous replacement. Unsure exact previous levels but vitamin B12 level normal at 648 on 03/13/2023. No indication for changing therapy. recheck vitamin B12 level with blood work04/21/2024 in good range at 531. Of note when she had rechecked her blood counts in July 2024 with her bariatric surgeon, they noticed that her iron levels were getting lower again and her vitamin B12 is lower again, she has resumed replacement therapy, and I will recheck both today with CBC, iron, ferritin, and vitamin B12 level on 09/10/2024, which were all in good range and specifically the vitamin B12 level was at normal range of 720. No intervention necessary. 5. Anxiety and depression Assessment & Plan: Diagnosis in approximate 2015, for which she had benefit on fluoxetine. Some breakthrough anxiety more so than depressive symptoms as of visit 03/23/2023 with initiation and good response to initiation of Lexapro 10 mg tablet daily, buspirone 7.5 mg twice daily, with no headache, mental fogginess, stomach upset, but unfortunately buspirone seems to cause some delayed orgasm pattern, such she has stopped it. As such with some ongoing stressors as of 04/21/2024, especially with start of nursing school, we increased Lexapro to 20 mg daily on 04/21/2024 and we added Wellbutrin XL 150 mg daily. She continues with stability on her regimen, feels she continues to handle stressors overall well and is wanting to continue unchanged. She has not seen an exacerbation of symptoms with use of phentermine.We will continue unchanged. No SI/HI. Continue to reinforce the importance of lifestyle modifications to benefit mood including pursuit of enjoyable activities, regular exercise, good communication/counseling. No new concerns as of 10/09/2024, including with the use of phentermine. Vaccine Counseling: Follow Up Return in about 7 months (around 05/09/2025) for Annual physical. José Norris MD documented in this encounter Plan of Treatment Upcoming Encounters Date Type Department Care Team (Late st Contact Info) Description 04/23/2025 2:00 PM EST Office Visit [facility] [address] [place] [address] [place] [id number] José Norris MD [address] [place] [address] [place] [id number] 05/20/2025 3:30 PM EDT Office Visit [facility] [address] [place] [id number] Ana Vincent MD [address] [facility] [place] [address] 05/20/2025 3:30 PM EDT Clinical Support No Requirements [facility] [address] [facility] [place] [id number] documented as of this encounter Visit Diagnoses Diagnosis Class 1 obesity due to excess calories without serious comorbidity with body mass index (BMI) of 34.0 to 34.9 in adult- Primary Iron deficiency anemia secondary to inadequate dietary iron intake SVT (supraventricular tachycardia) Other specified cardiac dysrhythmias Vitamin B 12 deficiency Other B-complex deficiencies Anxiety and depression documented in this encounter Care Teams Airborne Operations Superintendent Relationship Specialty Start Date End Date José Norris MD [address] [place] [id number] PCP - General Internal Medicine 03/15/16 documented as of this encounter
--- NOTE | 2024-11-28 14:00 | US_ITS ---
PROCEDURE: US TRANSVAGINAL CLINICAL INDICATION: pelvic pain COMPARISON: CT CT ABDOMEN PELVIS WO/W CON from 02/14/2022 FINDINGS: Transvaginal sonographic images of the pelvis were obtained. UTERUS: The uterus is surgically absent. The vaginal vault is intact. LEFT OVARY: The left ovary is surgically absent. RIGHT OVARY: 3cmx [id number] with a volume of 6.7ml. Follicle 1. 1.23 cm x 1.01 cm x 1.36 cm Follicle 2. 1.10 cm x 0.57 cm x 0.56 cm There are several small follicles on the periphery of the right ovary. Right ovary is seen and appears normal. Doppler flow to right ovary is seen. There is no fluid in the cul-de-sac. IMPRESSION: 1. The uterus is surgically absent. The vaginal vault is intact. 2. The left ovary is surgically absent. The right ovary contains 2 follicles measuring 1.2 cm and 1.1 cm respectively. 3. No fluid in the cul-de-sac. Dictated by: Stanley Millan MD 11/28/2024 17:25 Stanley Millan MD in OV 11/28/2024 17:25
--- OUTSIDE RECORDS SUMMARY | 2024-11-28 14:03 | XMS_ITS | Data Portability ---
Author Organization [place] - [facility] - [place] [facility] ADMIN Address [address] [place] [id number] Care Team Providers Care Microelectronics Engineer Name Role Phone ILEANA SQUIRES Chief Nursing Officer JOAQUIM DUMONT Primary Care Provider Assessment Encounter Date Assessment Date Assessment LastModified by Organization Details LastModified Time 01/14/2024 01/14/2024 [id number] e with: 1) Chronic abdominal pain/history of pancreatitis/pancr eatic pseudocyst: She has a known history of pseudocyst of pancreas. She had pancreatitis following EUS with biopsy but denied prior episodes of pancreatitis prior to this. Pancreatic cyst fluid studies were c/w a pseudocyst. She has complained chronic of epigastric pain and feelings of epigastric fullness following that. CT in surveillance of the pseudocyst showed minimal enlargement without complication. EUS for celiac plexus block was performed on 03/01/23 with good effect. Can repeat q6 months PRN. -Plan for repeat surveillance of the pancreatic lesion next month. Order has been placed. She complains of mild recurrence of epigastric pain. 2) GERD: She is s/p gastric bypass but has complained of frequent chest burning post-op. This is improved with twice daily PPI. -Continue pantoprazole 40 mg p.o. twice daily. -She is not a candidate for [place] pH study due to pacemaker. Prior attempt to place a pH impedance probe was not tolerated by the patient. 3) Constipation: Currently well managed with Ibsrela 50 mg tablet twice daily before meals. She will f/u 6 months. I will call her with her CT results. Not available 01/14/2024 08:53:11 07/07/2024 07/07/2024 34 [id number] le with: 1) Chronic upper abdominal pain/history of pancreatitis/pancr eatic pseudocyst: She has a known history of pseudocyst of pancreas, stable on CT imaging 01/2024. She had pancreatitis following EUS with biopsy but denied episodes of pancreatitis prior to this. Pancreatic cyst fluid studies were c/w a pseudocyst. She has complained chronic intermittent epigastric pain and feelings of epigastric fullness following that. EUS for celiac plexus block was performed on 03/01/23 with good effect. She wishes to pursue repeat EUS with celiac plexus block due to recurrent epigastric discomfort. 2) GERD: She is s/p gastric bypass but has complained of frequent chest burning post-op. This was previously well managed with pantoprazole twice daily, however she has experienced worsening symptoms recently. -Stop Pantoprazole. Start Voquezna 10 mg p.o. daily. -She is not a candidate for [place] pH study due to pacemaker. Prior attempt to place a pH impedance probe was not tolerated by the patient. 3) Constipation: Currently well managed with Ibsrela 50 mg tablet twice daily before meals. Refills provided. 4) Dysphagia: Schedule EGD for further evaluation. She will f/u 6 months unless otherwise indicated following her procedures. [email or web address] Not available 07/07/2024 09:19:43 08/25/2024 08/25/2024 34 [id number] le with: 1) Chronic upper abdominal pain/history of pancreatitis/pancr eatic pseudocyst: Recent EUS with celiac plexus block was performed on 07/16/24. Resolution of the previously identified pseudocyst was noted at that time. She has some residual epigastric burning that will be treated per below. 2) GERD/Reactive gastropathy: I have instructed her to change the timing of pantoprazole administration to 30 minutes before morning and evening meal. We will add sucralfate liquid QID. -She is s/p gastric bypass but has complained of frequent chest burning post-op. -Voquezna was not covered. Dexlansoprazole was not tolerated. -She is not a candidate for [place] pH study due to pacemaker. Prior attempt to place a pH impedance probe was not tolerated by the patient. 3) Constipation: Currently well managed with Ibsrela 50 mg tablet twice daily before meals. Not available 08/25/2024 12:17:07 Plan of Treatment Reminders Order Date Submit Date Provider Last Modified By Organization Details Last Modified Time Details Appointments OV EST 20 2024 01:00P M Darius Holliday, DNP, MAP COMPILER, ASSISTANT PRODUCE MANAGER-C Not available Not available Not available Establish ed Visit 15 min 2025 01:00P M Rgean Curry PA-C Not available Not available Not available Lab iron + TIBC + ferritin, serum 2024 025 [email or web address] [facility], [address], [address], [place], [address], 07/14/2024 16:30:12 folate, serum 2024 025 KIMO [facility], [address], [address], [place], [address], 07/04/2024 18:17:22 vitamin D, 25-hydrox y, total, serum 2024 025 [email or web address] [facility], [address], [address], [place], [address], 07/14/2024 16:30:13 CBC w/ auto diff 2024 025 [email or web address] [facility], [address], [address], [place], [address], 07/04/2024 17:15:17 CMP, serum or plasma 2024 025 [email or web address] [facility], [address], [address], [place], [address], 07/04/2024 17:44:39 HbA1c (hemoglob in A1c), blood 2024 025 [email or web address] [facility], [address], [address], [place], [address], 07/14/2024 16:30:12 TSH + free T4, serum 2024 025 [email or web address] [facility], [address], [address], [place], [address], 07/14/2024 16:30:13 lipid panel, serum 2024 025 [email or web address] [facility], [address], [address], [place], [address], 07/14/2024 16:30:13 copper, serum or plasma 2024 025 [email or web address] [facility], [address], [address], [place], [address], 07/14/2024 16:30:12 selenium, quantitat violeta, blood 2024 025 [email or web address] [facility], [address], [address], [place], [address], 07/14/2024 16:30:12 zinc, serum or plasma 2024 025 [email or web address] [facility], [address], [address], [place], [address], 07/14/2024 16:30:12 vitamin E, serum 2024 025 [email or web address] [facility], [address], [address], [place], [address], 07/14/2024 16:30:12 vitamin A (retinol) , serum 2024 025 [email or web address] [facility], [address], [address], [place], [address], 07/11/2024 06:10:45 prealbumi n, serum 2024 025 [email or web address] [facility], [address], [address], [place], [address], 07/06/2024 07:10:09 thiamine, QN, blood 2024 025 [email or web address] [facility], [address], [address], [place], [address], 07/14/2024 16:30:12 methylmal alberta, QN, serum or plasma 2024 025 [email or web address] [facility], [address], [address], [place], [address], 07/14/2024 16:30:12 vitamin D, 25-hydrox y, total, serum 2023 024 [facility], [address], [address], [place], [address], 01/09/2024 09:01:28 CBC w/ auto diff 2023 024 [email or web address] [facility], [address], [address], [place], [address], 01/09/2024 09:01:28 CMP, serum or plasma 2023 024 [email or web address] [facility], [address], [address], [place], [address], 01/09/2024 09:01:28 HbA1c (hemoglob in A1c), blood 2023 024 [email or web address] [facility], [address], [address], [place], [address], 01/09/2024 09:01:28 TSH + free T4, serum 2023 024 [email or web address] [facility], [address], [address], [place], [address], 01/09/2024 09:01:28 lipid panel, serum 2023 024 [email or web address] [facility], [address], [address], [place], [address], 01/09/2024 09:01:28 copper, serum or plasma 2023 024 [email or web address] [facility], [address], [address], [place], [address], 01/09/2024 09:01:26 selenium, quantitat violeta, blood 2023 024 [email or web address] [facility], [address], [address], [place], [address], 01/09/2024 09:01:26 zinc, serum or plasma 2023 024 [facility], [address], [address], [place], [address], 01/09/2024 09:01:27 iron + TIBC + ferritin, serum 2023 [facility], [address], [address], [place], [address], 01/09/2024 09:01:27 folate, serum 2023 [email or web address] [facility], [address], [address], [place], [address], 01/09/2024 09:01:27 vitamin E, serum 2023 024 [email or web address] [facility], [address], [address], [place], [address], 01/09/2024 09:01:27 vitamin A (retinol) , serum 2023 024 [email or web address] [facility], [address], [address], [place], [address], 01/09/2024 09:01:27 prealbumi n, serum 2023 024 KIMO [facility], [address], [address], [place], [address], 01/03/2024 06:16:34 thiamine, QN, blood 2023 024 [email or web address] [facility], [address], [address], [place], [address], 01/09/2024 09:01:27 methylmal alberta, QN, serum or plasma 2023 024 [email or web address] [facility], [address], [address], [place], [address], 01/09/2024 09:01:27 Referral None recorded. Procedures None recorded. Surgeries None recorded. Imaging CT, pancreas, w/ contrast - Surveilla nce of pancreati c cystic lesion 2023 epetting wn [facility], [address] [facility], [place], [address], 01/23/2024 10:49:03 Medication Orders sucralfat e 100 mg/mL oral suspensio n 2024 025 [id number], [address] [place], [place], [id number], 08/25/2024 11:46:22 pantopraz ole 40 mg tablet,de layed release 2024 025 [facility] #[id number], [address] [place], [place], [id number], 08/25/2024 11:47:39 Ibsrela 50 mg tablet 2024 025 [facility] #[id number], [address], [id number], 07/07/2024 09:00:32 Voquezna 10 mg tablet 2024 025 [id number], [address], [place], [id number], 07/07/2024 09:00:33 Patient TargetsNo targets recorded. Patient InstructionsNo instructions recorded. Reason for Referral None Reported. Results Created Date Observation Date Name Description Value Unit Range Abnormal Flag Note LastModifiedBy Organization Detail LastModifiedTime 01/02/2001/02/2024 CBC AUTO W DIFF WBC 6.2 K/uL 4.0-10 .5 Not Available [facility] [address] [place], [address], 01/02/2024 10:27:57 01/02/20 24 01/02/2024 CBC AUTO W DIFF RBC 4.3 M/mm3 4.2-6. 4 Not Available [facility] [address] [place], [address], 01/02/2024 10:27:57 01/02/20 24 01/02/2024 CBC AUTO W DIFF HGB 13.3 gm/dL 12.5-1 6.0 Not Available [facility] [address] [place], [address], 01/02/2024 10:27:57 01/02/20 24 01/02/2024 CBC AUTO W DIFF HCT 39.9 % 37.0-4 7.0 Not Available [facility] [address] [place], [address], 01/02/2024 10:27:57 01/02/20 24 01/02/2024 CBC AUTO W DIFF MCV 93.0 fL 78-100 Not Available [facility] [address] , [place], [address], 01/02/2024 10:27:57 01/02/20 24 01/02/2024 CBC AUTO W DIFF MCH 31.0 pg 27-31 Not Available [facility] [address] , [place], [address], 01/02/2024 10:27:57 01/02/20 24 01/02/2024 CBC AUTO W DIFF MCHC 33.3 g/dL 32-36 Not Available [facility] [address] , [place], [address], 01/02/2024 10:27:57 01/02/20 24 01/02/2024 CBC AUTO W DIFF RDW 11.9 % 11.5-1 4.0 Not Available [facility] [address] , [place], [address], 01/02/2024 10:27:57 01/02/20 24 01/02/2024 CBC AUTO W DIFF platelet count 292 K/uL 150-45 0 Not Available [facility] [address] , [place], [address], 01/02/2024 10:27:57 01/02/20 24 01/02/2024 CBC AUTO W DIFF MPV 10.2 fL 6-9.5 high Not Available [facility] [address] , [place], [address], 01/02/2024 10:27:57 01/02/20 24 01/02/2024 CBC AUTO W DIFF neutrophil% 73.4 % 43-65 high Not Available [facility] [address] , [place], [address], 01/02/2024 10:27:57 01/02/20 24 01/02/2024 CBC AUTO W DIFF lymphocyte% 19.3 % 20.5-4 5.5 low Not Available [facility] [address] [place], [address], 01/02/2024 10:27:57 01/02/20 24 01/02/2024 CBC AUTO W DIFF monocyte% 5.3 % 5.5-11 .7 low Not Available [facility] [address] [place], [address], 01/02/2024 10:27:57 01/02/20 24 01/02/2024 CBC AUTO W DIFF eosinophil% 1.1 % 0.9-2. 9 Not Available [facility] [address], [place], [address], 01/02/2024 10:27:57 01/02/20 24 01/02/2024 CBC AUTO W DIFF basophil% 0.6 % 0.2-1. 0 Not Available [facility] [address] [place], [address], 01/02/2024 10:27:57 01/02/20 24 01/02/2024 CBC AUTO W DIFF immature granulocytes % 0.3 % 0.0-0. 8 Not Available [facility] [address] [place], [address], 01/02/2024 10:27:57 01/02/20 24 01/02/2024 CBC AUTO W DIFF nucleated red blood cells % 0.0 % Not Available [facility] [address] [place], [address], 01/02/2024 10:27:57 01/02/20 24 01/02/2024 CBC AUTO W DIFF neutrophil# 4.6 K/uL 2.2-4. 8 Not Available [facility] [address] [place], [address], 01/02/2024 10:27:57 01/02/20 24 01/02/2024 CBC AUTO W DIFF lymphocyte# 1.2 cell/ mcL 1.3-2. 9 low Not Available [facility] [address] [facility], [place], [address], 01/02/2024 10:27:57 01/02/20 24 01/02/2024 CBC AUTO W DIFF monocyte# 0.3 cell/ mcL 0.3-0. 8 Not Available [facility] [address] [facility], [place], [address], 01/02/2024 10:27:57 01/02/20 24 01/02/2024 CBC AUTO W DIFF eosinophil# 0.1 cell/ mcL 0-0.2 Not Available [facility] [address] [facility], [place], [address], 01/02/2024 10:27:57 01/02/20 24 01/02/2024 CBC AUTO W DIFF basophil# 0.0 cell/ mcL 0.0-1. 0 Not Available [facility] [address] [facility], [place], [address], 01/02/2024 10:27:57 01/02/20 24 01/02/2024 CBC AUTO W DIFF immature gramulocytes # 0.02 K/uL Not Available [facility] [address] [facility], [place], [address], 01/02/2024 10:27:57 01/02/20 24 01/02/2024 CBC AUTO W DIFF nucleated red blood cells # 0.00 K/uL Not Available [facility] [address] [facility], [place], [address], 01/02/2024 10:27:57 01/02/20 24 01/02/2024 CBC AUTO W DIFF manual differential NO Not Available [facility] [address] , [place], [address], 01/02/2024 10:27:57 01/02/20 24 01/02/2024 IRON STUDY (IRON /TIBC /%SAT ) iron 86 mcg/m L 40-180 Not Available [facility] [address] , [place], [address], 01/02/2024 11:44:33 01/02/20 24 01/02/2024 IRON STUDY (IRON /TIBC /%SAT ) TIBC 328 mcg/d L 250-45 0 Not Available [facility] [address] , [place], [address], 01/02/2024 11:44:33 01/02/20 24 01/02/2024 IRON STUDY (IRON /TIBC /%SAT ) %sat 26 15-55 Not Available [facility] [address], [place], [address], 01/02/2024 11:44:33 01/02/20 24 01/02/2024 COMP METAB OLIC PANEL sodium 138 mmol/ L 136-14 5 Not Available [facility] [address] , [place], [address], 01/02/2024 12:22:18 01/02/20 24 01/02/2024 COMP METAB OLIC PANEL potassium 3.9 mmol/ L 3.6-5. 0 Not Available [facility] [address] [place], [address], 01/02/2024 12:22:18 01/02/20 24 01/02/2024 COMP METAB OLIC PANEL chloride 101 mmol/ L 98-107 Not Available [facility] [address] [place], [address], 01/02/2024 12:22:18 01/02/20 24 01/02/2024 COMP METAB OLIC PANEL carbon dioxide 28.4 mmol/ L 21.0-3 2.0 Not Available [facility] [address], [place], [address], 01/02/2024 12:22:18 01/02/20 24 01/02/2024 COMP METAB OLIC PANEL anion gap 12.5 Not Available [facility] [address], [place], [address], 01/02/2024 12:22:18 01/02/20 24 01/02/2024 COMP METAB OLIC PANEL glucose 81 mg/dL 70-120 Not Available [facility] [address] [facility], [place], [address], 01/02/2024 12:22:18 01/02/20 24 01/02/2024 COMP METAB OLIC PANEL BUN 13 mg/dL 7-18 Not Available [facility] [address] [facility], [place], [address], 01/02/2024 12:22:18 01/02/20 24 01/02/2024 COMP METAB OLIC PANEL creatinine 0.6 mg/dL 0.6-1. 3 Not Available [facility] [address] [facility], [place], [address], 01/02/2024 12:22:18 01/02/20 24 01/02/2024 COMP METAB OLIC PANEL glomerular filtration rate 121 mlper min 60- GFR LIMIT ATION : The eGFR equat ion CKD-E PI 2020 is not appli cable for pedia tric patie nts or great er than 90 years of age. The follo wing condi tions may alter the GFR resul t: extre mes in body size, malnu triti on or obesi ty, skele kira muscl e disea se, parap legia or quadr ipleg ia, veget renate diet or rapid ly hicks ing kiney funct ion. Not Available [facility] [address] [facility], [place], [address], 01/02/2024 12:22:18 01/02/20 24 01/02/2024 COMP METAB OLIC PANEL total protein 7.4 g/dL 6.4-8. 2 Not Available [facility] [address] [facility], [place], [address], 01/02/2024 12:22:18 01/02/20 24 01/02/2024 COMP METAB OLIC PANEL albumin 3.7 g/dL 3.4-5. 0 Not Available [facility] [address] [facility], [place], [address], 01/02/2024 12:22:18 01/02/20 24 01/02/2024 COMP METAB OLIC PANEL globulin 3.7 Not Available [facility] [address] [facility], [place], [address], 01/02/2024 12:22:18 01/02/20 24 01/02/2024 COMP METAB OLIC PANEL alb/glob ratio 1.0 0.7-2 Not Available [facility] [address] [facility], [place], [address], 01/02/2024 12:22:18 01/02/20 24 01/02/2024 COMP METAB OLIC PANEL calcium 8.9 mg/dL 8.5-10 .5 Not Available [facility] [address] [place], [address], 01/02/2024 12:22:18 01/02/20 24 01/02/2024 COMP METAB OLIC PANEL bilirubin total 0.90 mg/dL 0.10-1 .00 Not Available [facility] [address] [place], [address], 01/02/2024 12:22:18 01/02/20 24 01/02/2024 COMP METAB OLIC PANEL AST (SGOT) 26 U/L 0-37 Not Available [facility] ([facility] [address], [place], [address], 01/02/2024 12:22:18 01/02/20 24 01/02/2024 COMP METAB OLIC PANEL ALT (SGPT) 42 U/L 0-65 Not Available [facility]) [address], [place], [address], 01/02/2024 12:22:18 01/02/20 24 01/02/2024 COMP METAB OLIC PANEL alk phosphatase 97 U/L 46-116 Not Available [facility] [address] [facility], [place], [address], 01/02/2024 12:22:18 01/02/20 24 01/02/2024 THYRO ID STIMU LATIN G HORMO NE thyroid stim hormone 1.81 mIU/L 0.36-3 .74 Not Available [facility] [address] [facility], [place], [address], 01/02/2024 12:22:21 01/02/20 24 01/02/2024 T4 FREE T4 free 0.94 NG/dL 0.76-1 .46 Not Available [facility] [address] [facility], [place], [address], 01/02/2024 12:22:22 01/02/20 24 01/02/2024 LIPID PANEL triglyceride 33 mg/dL 30-200 Not Available [facility] [address] [facility], [place], [address], 01/02/2024 12:22:23 01/02/20 24 01/02/2024 LIPID PANEL cholesterol 163 mg/dL 0-200 Not Available [facility] [address], [place], [address], 01/02/2024 12:22:23 01/02/20 24 01/02/2024 LIPID PANEL HDL 66 mg/dL 40-104 Not Available [facility] [address], [place], [address], 01/02/2024 12:22:23 01/02/20 24 01/02/2024 LIPID PANEL LDL calculated 90 mg/dL 0-130 Not Available [facility] [address], [place], [address], 01/02/2024 12:22:23 01/02/20 24 01/02/2024 BRITANY TIN ferritin, serum 50 NG/mL 3-244 Not Available [facility] [address], [place], [address], 01/02/2024 12:22:24 01/02/20 24 01/02/2024 HEMOG LOBIN A1C A1C 4.8 % 3.8-5. 6 GLYCO SYLAT ED HEMOG LOBIN (A1C) EXPEC ROLAND RANGE S: <6.5 NON-D IABET IC 6.5-7 .5 EXCEL LENT 7.5-8 .5 GOOD >8.5 POOR Not Available [facility] [address], [place], [address], 01/02/2024 12:22:25 01/02/20 24 01/02/2024 FOLIC ACID folate (folic acid), serum 16.6 NG/mL 8.6-58 .9 *Note : Refer ence Kiley burgos New Test Metho d in use. Not Available [facility] [address], [place], [address], 01/02/2024 12:22:26 01/02/20 24 01/02/2024 VITAM IN D, 25-HY DROXY vitamin D, 25-hydroxy 35.1 NG/mL 30.0-1 00.0 Not Available [facility] [address] [facility], [place], [address], 01/02/2024 12:22:28 01/02/20 24 01/03/2024 PREAL BUMIN prealbumin 19 mg/dL 14-35 Perfo rmed at: - [facility] [address] [place] [address] Lab Direc tor: Raúl whitehead PhD, Phone : [phone] Not Available [facility] [address] [facility], [place], [address], 01/03/2024 06:16:34 01/02/20 24 01/05/2024 COPPE R BLOOD copper, serum plasma 103 ug/dL 80-158 Speci men Comme nt: Test( s) 76397 6-Excellence Leader per, Serum or Plasm a Speci men Comme nt: was devel oped and its perfo rmanc e davy cte risti cs Speci men Comme nt: deter mined by [employer]. It has not been pam ared or appro hemant Speci men Comme nt: by the Food and Drug Admin istra tion. Detec tion Limit = 5 Perfo rmed at: [facility] [address] [place] [address] , [place] [id number] Lab Direc tor: Berta powell MD, Phone : [phone] Not Available [facility] [address] [facility], [place], [address], 01/05/2024 11:13:39 01/02/20 24 01/07/2024 VITAM IN B1 JEFF INE vitamin B1 (thiamine), plasma 118.1 nmol/ L 66.5-2 00.0 Speci men Comme nt: Test( s) 38739 8-Vit . B1, Whole Blood Speci men Comme nt: was devel oped and its perfo rmanc e davy cte risti cs Speci men Comme nt: deter mined by [employer]. It has not been pam ared or appro hemant Speci men Comme nt: by the Food and Drug Admin istra tion. Perfo rmed at: [facility] [place] [address] [place] [id number] Lab Direc tor: Berta powell MD, Phone : [phone] Not Available [facility] [address] [facility], [place], [address], 01/07/2024 09:10:12 01/02/20 24 01/09/2024 ZINC BLOOD zinc, plasma or serum 75 ug/dL 44-115 Speci men Comme nt: Test( s) 37594 0-Zin c, Plasm a or Serum Speci men Comme nt: was devel oped and its perfo rmanc e davy cte risti cs Speci men Comme nt: deter mined by [employer]. It has not been pam ared or appro hemant Speci men Comme nt: by the Food and Drug Admin istra tion. Detec tion Limit = 5 Perfo rmed at: [facility] [address] [place] [id number] Lab Direc tor: Berta powell MD, Phone : [phone] Not Available [facility] [address] [facility], [place], [address], 01/09/2024 06:16:35 01/02/20 24 01/09/2024 VITAM IN A vitamin A, serum 28.3 ug/dL 18.9-5 7.3 Refer ence inter vals for vitam in A deter mined from [facility] rp inter nal studi es. Indiv idual s with vitam in A less than 20 ug/dL are consi dered vitam in A defic ient and those with serum dominic ntrat ions less than 10 ug/dL are consi dered sever sue defic ient. . This test was devel oped and its perfo rmanc e davy cteri stics deter mined by [employer] . It has not been clear ed or appro hemant by the Food and Drug Admin istra tion. Perfo rmed at: [facility] Abdiaziz barney [address] [place] [id number] Lab Direc tor: Berta powell MD, Phone : [phone] Not Available [facility] [address] [facility], [place], [address], 01/09/2024 15:12:57 01/02/20 24 01/09/2024 VITAM IN E vitamin E(alpha tocopherol) 9.3 mg/L 5.9-19 .4 Not Available [facility] [address] [facility], [place], [address], 01/09/2024 15:12:59 01/02/20 24 01/09/2024 VITAM IN E vitamin E(gamma tocopherol) 0.9 mg/L 0.7-4. 9 Refer ence inter vals for alpha and gamma -toco phero l deter mined from [facility] Nutri tion Exami natio n Surve y, 2004- 2005. Indiv idual s with alpha -toco phero l level s less than 5.0 mg/L are consi dered vitam in E defic ient. Perfo rmed at: [facility] Abdiaziz barney [address] [place] [address] 5243 Lab Direc tor: Berta powell MD, Phone : [phone] Not Available [facility] [address] [facility], [place], [address], 01/09/2024 15:12:59 01/02/20 24 01/10/2024 METHY LMALO MERCEDES ACID QUANT methylmaloni c acid, serum 267 nmol/ L 0-378 Speci men Comme nt: Test( s) 38025 7-Met hylma lonic Acid, Serum Speci men Comme nt: was devel oped and its perfo rmanc e davy cte risti cs Speci men Comme nt: deter mined by [employer]. It has not been pam ared or appro hemant Speci men Comme nt: by the Food and Drug Admin istra tion. Perfo rmed at: [facility] Abdiaziz barney [address] [facility] , [place] [address] 9202 Lab Direc tor: Berta powell MD, Phone : [phone] Not Available [facility] [address] [facility], [place], [address], 01/10/2024 19:09:51 01/02/20 24 01/10/2024 SELEN IUM selenium 112 ug/L 93-198 Speci men Comme nt: Test( s) 95818 0-Esperanza enium , Serum /Plas ma Speci men Comme nt: was devel oped and its perfo rmanc e davy cte risti cs Speci men Comme nt: deter mined by [facility]. It has not been pam ared or appro hemant Speci men Comme nt: by the Food and Drug Admin istra tion. Perfo rmed at: [facility] EDgaby pinto [address], [place], [place] [id number] Lab Direc tor: Remigio Choudhury MD, Phone : [phone] Not Available [facility] [address], [place], [address], 01/10/2024 19:09:52 07/05/19 25 07/04/2024 CBC AUTO W DIFF WBC 10.3 K/uL 4.0-10 .5 Not Available [facility] [address] [facility], [place], [address], 07/04/2024 17:15:17 07/05/19 25 07/04/2024 CBC AUTO W DIFF RBC 4.4 M/mm3 4.2-6. 4 Not Available [facility] [address] [facility], [place], [address], 07/04/2024 17:15:17 07/05/19 25 07/04/2024 CBC AUTO W DIFF HGB 13.1 gm/dL 12.5-1 6.0 Not Available [facility] [address] , [place], [address], 07/04/2024 17:15:17 07/05/19 25 07/04/2024 CBC AUTO W DIFF HCT 39.8 % 37.0-4 7.0 Not Available [facility] [address] , [place], [address], 07/04/2024 17:15:17 07/05/19 25 07/04/2024 CBC AUTO W DIFF MCV 91.3 fL 78-100 Not Available [facility] [address] , [place], [address], 07/04/2024 17:15:17 07/05/19 25 07/04/2024 CBC AUTO W DIFF MCH 30.0 pg 27-31 Not Available [facility] [address] , [place], [address], 07/04/2024 17:15:17 07/05/19 25 07/04/2024 CBC AUTO W DIFF MCHC 32.9 g/dL 32-36 Not Available [facility] [address] , [place], [address], 07/04/2024 17:15:17 07/05/19 25 07/04/2024 CBC AUTO W DIFF RDW 11.9 % 11.5-1 4.0 Not Available [facility] [address] , [place], [address], 07/04/2024 17:15:17 07/05/19 25 07/04/2024 CBC AUTO W DIFF platelet count 291 K/uL 150-45 0 Not Available [facility] [address] [place], [address], 07/04/2024 17:15:17 07/05/19 25 07/04/2024 CBC AUTO W DIFF MPV 10.3 fL 6-9.5 high Not Available [facility] [address] [facility], [place], [address], 07/04/2024 17:15:17 07/05/19 25 07/04/2024 CBC AUTO W DIFF neutrophil% 76.4 % 43-65 high Not Available [facility] [address] [place], [address], 07/04/2024 17:15:17 07/05/19 25 07/04/2024 CBC AUTO W DIFF lymphocyte% 17.7 % 20.5-4 5.5 low Not Available [facility] [address] [place], [address], 07/04/2024 17:15:17 07/05/19 25 07/04/2024 CBC AUTO W DIFF monocyte% 3.9 % 5.5-11 .7 low Not Available [facility] [address] [place], [address], 07/04/2024 17:15:17 07/05/19 25 07/04/2024 CBC AUTO W DIFF eosinophil% 1.3 % 0.9-2. 9 Not Available [facility] [address] [place], [address], 07/04/2024 17:15:17 07/05/19 25 07/04/2024 CBC AUTO W DIFF basophil% 0.5 % 0.2-1. 0 Not Available [facility] [address] [place], [address], 07/04/2024 17:15:17 07/05/19 25 07/04/2024 CBC AUTO W DIFF immature granulocytes % 0.2 % 0.0-0. 8 Not Available [facility] [address] [facility], [place], [address], 07/04/2024 17:15:17 07/05/19 25 07/04/2024 CBC AUTO W DIFF nucleated red blood cells % 0.0 % Not Available [facility] [address] [facility], [place], [address], 07/04/2024 17:15:17 07/05/19 25 07/04/2024 CBC AUTO W DIFF neutrophil# 7.9 K/uL 2.2-4. 8 high Not Available [facility] [address] [facility], [place], [address], 07/04/2024 17:15:17 07/05/19 25 07/04/2024 CBC AUTO W DIFF lymphocyte# 1.8 cell/ mcL 1.3-2. 9 Not Available [facility] [address] [facility], [place], [address], 07/04/2024 17:15:17 07/05/19 25 07/04/2024 CBC AUTO W DIFF monocyte# 0.4 cell/ mcL 0.3-0. 8 Not Available [facility] [address] [place], [address], 07/04/2024 17:15:17 07/05/19 25 07/04/2024 CBC AUTO W DIFF eosinophil# 0.1 cell/ mcL 0-0.2 Not Available [facility] [address] [place], [address], 07/04/2024 17:15:17 07/05/19 25 07/04/2024 CBC AUTO W DIFF basophil# 0.1 cell/ mcL 0.0-1. 0 Not Available [facility] [address] [place], [address], 07/04/2024 17:15:17 07/05/19 25 07/04/2024 CBC AUTO W DIFF immature gramulocytes # 0.02 K/uL Not Available [facility] [address], [place], [address], 07/04/2024 17:15:17 07/05/19 25 07/04/2024 CBC AUTO W DIFF nucleated red blood cells # 0.00 K/uL Not Available [facility] [address], [place], [address], 07/04/2024 17:15:17 07/05/19 25 07/04/2024 CBC AUTO W DIFF manual differential NO Not Available [facility] [address], [place], [address], 07/04/2024 17:15:17 07/05/19 25 07/04/2024 HEMOG LOBIN A1C A1C 4.7 % 3.8-5. 6 GLYCO SYLAT ED HEMOG LOBIN (A1C) EXPEC ROLAND RANGE S: <6.5 NON-D IABET IC 6.5-7 .5 EXCEL LENT 7.5-8 .5 GOOD >8.5 POOR Not Available [facility] [address], [place], [address], 07/04/2024 17:20:52 07/05/19 25 07/04/2024 COMP METAB OLIC PANEL sodium 135 mmol/ L 136-14 5 low Not Available [facility] [address], [place], [address], 07/04/2024 17:44:39 07/05/19 25 07/04/2024 COMP METAB OLIC PANEL potassium 4.1 mmol/ L 3.6-5. 0 Not Available [facility] [address] , [place], [address], 07/04/2024 17:44:39 07/05/19 25 07/04/2024 COMP METAB OLIC PANEL chloride 101 mmol/ L 98-107 Not Available [facility] [address] , [place], [address], 07/04/2024 17:44:39 07/05/19 25 07/04/2024 COMP METAB OLIC PANEL carbon dioxide 28.0 mmol/ L 21.0-3 2.0 Not Available [facility] [address] , [place], [address], 07/04/2024 17:44:39 07/05/19 25 07/04/2024 COMP METAB OLIC PANEL anion gap 10.1 Not Available [facility] [address] , [place], [address], 07/04/2024 17:44:39 07/05/19 25 07/04/2024 COMP METAB OLIC PANEL glucose 84 mg/dL 70-120 Not Available [facility] [address] , [place], [address], 07/04/2024 17:44:39 07/05/19 25 07/04/2024 COMP METAB OLIC PANEL BUN 12 mg/dL 7-18 Not Available [facility] [address] [place], [address], 07/04/2024 17:44:39 07/05/19 25 07/04/2024 COMP METAB OLIC PANEL creatinine 0.8 mg/dL 0.6-1. 3 Not Available [facility] [address] [place], [address], 07/04/2024 17:44:39 07/05/19 25 07/04/2024 COMP METAB OLIC PANEL glomerular filtration rate 99 mlper min 60- GFR LIMIT ATION : The eGFR equat ion CKD-E PI 2020 is not appli cable for pedia tric patie nts or great er than 90 years of age. The follo wing condi tions may alter the GFR resul t: extre mes in body size, malnu triti on or obesi ty, skele kira muscl e disea se, parap legia or quadr ipleg ia, veget renate diet or rapid ly hicks ing kiney funct ion. Not Available [facility] [address], [place], [address], 07/04/2024 17:44:39 07/05/19 25 07/04/2024 COMP METAB OLIC PANEL osmolality (calculated) 280 mOsm/ kg 275-30 1 OSMOL ALITY IS A CALCU LATIO N UTILI ZING THE SERUM /PLAS MA SODIU M, GLUCO SE AND UREA NITRO GEN (BUN) LEVEL S. FOR THE MOST ACCUR ATE RESUL T A MEASU RED SERUM OSMOL ALITY IS SUGGE STED. Not Available [facility] [address] , [place], [address], 07/04/2024 17:44:39 07/05/19 25 07/04/2024 COMP METAB OLIC PANEL total protein 7.3 g/dL 6.4-8. 2 Not Available [facility] [address], [place], [address], 07/04/2024 17:44:39 07/05/19 25 07/04/2024 COMP METAB OLIC PANEL albumin 3.9 g/dL 3.4-5. 0 Not Available [facility] [address], [place], [address], 07/04/2024 17:44:39 07/05/19 25 07/04/2024 COMP METAB OLIC PANEL globulin 3.4 Not Available [facility] [address], [place], [address], 07/04/2024 17:44:39 07/05/19 25 07/04/2024 COMP METAB OLIC PANEL alb/glob ratio 1.1 0.7-2 Not Available [facility] [address] , [place], [address], 07/04/2024 17:44:39 07/05/19 25 07/04/2024 COMP METAB OLIC PANEL calcium 8.7 mg/dL 8.5-10 .5 Not Available [facility] [address], [place], [address], 07/04/2024 17:44:39 07/05/19 25 07/04/2024 COMP METAB OLIC PANEL bilirubin total 0.60 mg/dL 0.10-1 .00 Not Available [facility] [address], [place], [address], 07/04/2024 17:44:39 07/05/19 25 07/04/2024 COMP METAB OLIC PANEL AST (SGOT) 14 U/L 0-37 Not Available [facility] [address], [place], [address], 07/04/2024 17:44:39 07/05/19 25 07/04/2024 COMP METAB OLIC PANEL ALT (SGPT) 31 U/L 0-65 Not Available [facility] [address], [place], [address], 07/04/2024 17:44:39 07/05/19 25 07/04/2024 COMP METAB OLIC PANEL alk phosphatase 110 U/L 46-116 Not Available [facility] [address], [place], [address], 07/04/2024 17:44:39 07/05/19 25 07/04/2024 LIPID PANEL triglyceride 42 mg/dL 30-200 Not Available [facility] [address] [place], [address], 07/04/2024 17:44:40 07/05/19 25 07/04/2024 LIPID PANEL cholesterol 178 mg/dL 0-200 Not Available [facility] [address] [place], [address], 07/04/2024 17:44:40 07/05/19 25 07/04/2024 LIPID PANEL HDL 70 mg/dL 40-104 Not Available [facility] [address] [place], [address], 07/04/2024 17:44:40 07/05/19 25 07/04/2024 LIPID PANEL LDL calculated 100 mg/dL 0-130 Not Available [facility] [address] [place], [address], 07/04/2024 17:44:40 07/05/19 25 07/04/2024 THYRO ID STIMU LATIN G HORMO NE thyroid stim hormone 1.66 mIU/L 0.36-3 .74 Not Available [facility] [address] [place], [address], 07/04/2024 17:44:41 07/05/19 25 07/04/2024 T4 TOTAL T4 total 8.9 mcg/d L 4.5-12 .1 Not Available [facility] [address] [place], [address], 07/04/2024 17:44:41 07/05/19 25 07/04/2024 IRON STUDY (IRON /TIBC /%SAT ) iron 32 mcg/m L 40-180 low Not Available [facility] [address] [place], [address], 07/04/2024 17:56:58 07/05/19 25 07/04/2024 IRON STUDY (IRON /TIBC /%SAT ) TIBC 392 mcg/d L 250-45 0 Not Available [facility] [address] [place], [address], 07/04/2024 17:56:58 07/05/19 25 07/04/2024 IRON STUDY (IRON /TIBC /%SAT ) %sat 8 15-55 low Not Available [facility] [address] [place], [address], 07/04/2024 17:56:58 07/05/19 25 07/04/2024 FOLIC ACID folate (folic acid), serum 16.4 NG/mL 8.6-58 .9 *Note : Refer tristen burgos New Test Metho d in use. Not Available [facility] [address] [place], [address], 07/04/2024 18:17:22 07/05/19 25 07/04/2024 VITAM IN D, 25-HY DROXY vitamin D, 25-hydroxy 34.2 NG/mL 30.0-1 00.0 Not Available [facility] [address] [place], [address], 07/04/2024 18:26:22 07/05/19 25 07/05/2024 T4 FREE T4 free 1.04 NG/dL 0.76-1 .46 Not Available [facility] [address] [place], [address], 07/05/2024 16:50:48 07/05/19 25 07/05/2024 BRITANY TIN ferritin, serum 18 NG/mL 3-244 Not Available [facility] [address] [place], [address], 07/05/2024 16:50:49 07/05/19 25 07/06/2024 PREAL BUMIN prealbumin 20 mg/dL 14-35 Perfo rmed at: - [facility] [address] [facility], [place] [address] 8073 Lab Direc tor: Raúl whitehead PhD, Phone : [phone] Not Available [facility] [address] [facility], [place], [address], 07/06/2024 07:10:09 07/05/19 25 07/08/2024 SELEN IUM selenium 120 ug/L 93-198 Speci men Comme nt: Test( s) 82813 0-Esperanza enium , Serum /Plas ma Speci men Comme nt: was devel oped and its perfo rmanc e davy cte risti cs Speci men Comme nt: deter mined by [employer]. It has not been pam ared or appro hemant Speci men Comme nt: by the Food and Drug Admin istra tion. Perfo rmed at: [facility] Abdiaziz barney [address] [place] [address] 7907 Lab Direc tor: Berta powell MD, Phone : [phone] Not Available [facility] [address] [facility], [place], [address], 07/08/2024 17:11:42 07/05/19 25 07/08/2024 COPPE R BLOOD copper, serum plasma 115 ug/dL 80-158 Speci men Comme nt: Test( s) 62886 6-Ex[employer] per, Serum or Plasm a Speci men Comme nt: was devel oped and its perfo rmanc e davy cte risti cs Speci men Comme nt: deter mined by [employer]. It has not been pam ared or appro hemant Speci men Comme nt: by the Food and Drug Admin istra tion. Detec tion Limit = 5 Perfo rmed at: [facility] Abdiaziz barney [facility] [place] [address] Lab Direc tor: Berta powell MD, Phone : [phone] Not Available [facility] [address] [facility], [place], [address], 07/08/2024 20:12:04 07/05/19 25 07/09/2024 ZINC BLOOD zinc, plasma or serum 55 ug/dL 44-115 Speci men Comme nt: Test( s) 21947 0-Zin c, Plasm a or Serum Speci men Comme nt: was devel oped and its perfo rmanc e davy cte risti cs Speci men Comme nt: deter mined by [employer]. It has not been pam ared or appro hemant Speci men Comme nt: by the Food and Drug Admin istra tion. Detec tion Limit = 5 Perfo rmed at: [facility] Abdiaziz barney [facility] [place] [address] Lab Direc tor: Berta powell MD, Phone : [phone] Not Available [facility] [address] [facility], [place], [address], 07/09/2024 06:11:41 07/05/19 25 07/10/2024 VITAM IN B1 JEFF INE vitamin B1 (thiamine), plasma 124.9 nmol/ L 66.5-2 00.0 Speci men Comme nt: Test( s) 10364 8-Vit . B1, Whole Blood Speci men Comme nt: was devel oped and its perfo rmanc e davy cte risti cs Speci men Comme nt: deter mined by [employer]. It has not been pam ared or appro hemant Speci men Comme nt: by the Food and Drug Admin istra tion. Perfo rmed at: [facility] Abdiaziz barney [address] [place] [address] 0124 Lab Direc tor: Berta powell MD, Phone : [phone] Not Available [facility] [address] [facility], [place], [address], 07/10/2024 17:11:16 07/05/19 25 07/11/2024 VITAM IN A vitamin A, serum 38.5 ug/dL 18.9-5 7.3 Refer ence inter vals for vitam in A deter mined from [employer] inter nal studi es. Indiv idual s with vitam in A less than 20 ug/dL are consi dered vitam in A defic ient and those with serum dominic ntrat ions less than 10 ug/dL are consi dered sever sue defic ient. . This test was devel oped and its perfo rmanc e davy cteri stics deter mined by [employer] rp. It has not been clear ed or appro hemant by the Food and Drug Admin istra tion. Perfo rmed at: [facility] Abdiaziz barney [address] [place] [address] 9158 Lab Direc tor: Berta powell MD, Phone : [phone] Not Available [facility] [address] [facility], [place], [address], 07/11/2024 06:10:45 07/05/19 25 07/11/2024 METHY LMALO MERCEDES ACID QUANT methylmaloni c acid, serum 443 nmol/ L 0-378 high Speci men Comme nt: Test( s) 71687 7-Met hylma lonic Acid, Serum Speci men Comme nt: was devel oped and its perfo rmanc e davy cte risti cs Speci men Comme nt: deter mined by [employer]. It has not been pam ared or appro hemant Speci men Comme nt: by the Food and Drug Admin istra tion. Perfo rmed at: [facility] [address] [place] [address] 3670 Lab Direc tor: Berta powell MD, Phone : [phone] Not Available [facility] [address] [facility], [place], [address], 07/11/2024 17:11:41 01/23/20 24 01/23/2024 CT, abdom en, w/ contr ast [facility] [address] [place] [address] Phone: Fax: Name: SAUNDRA VELA Exam Date: 2023 : 990 Age 33 years Gender : F Access ion: [id number] Physic sharlene: CURRY REGAN Facili ty: [facility] Facili ty HSV: Outpat ient Exam: CT ABD W PROCED URE DESCRI PTION: CT ABDOME N withou t and with IV CONTRA ST CLINIC AL INDICA TION: Pseudo cyst of pancre as. COMPAR TONE: 08/10/19 24 and 2022. FINDIN GS: There are postop erativ e change s in the stomac h. The lung bases are unrema rkable . There is no free intrap eriton eal air. The patien t is status post cholec ystect jani. There are spleni c granul shaila. There is a hypode nse mass in the head of the pancre as on axial image #58 measur ing approx imatel y 1.9 cm (was 1.9 cm). Differ ential consid eratio ns could includ e pancre atic pseudo cyst, pancre atic cyst, or serous microc ystic adenom a of the pancre as in the approp riate clinic al settin g. There is stable promin ence of the intrah epatic and extra hepati c biliar y ducts which may relate d to prior cholec ystect jani. The adrena l glands , and kidney s are unrema rkable . The colon, termin al ileum, and append ix are unrema rkable . Pelvic findin gs: The bladde r is unrema rkable . IMPRES MARIYA: 1. Stable intrah epatic and extrah epatic biliar y duct dilata tion which may relate d to prior cholec ystect jani. 2. Stable postop erativ e change s involv ing the stomac h. 3. Hypode nse mass involv ing the head of the pancre as.Dif ferent ial consid eratio ns could includ e pancre atic pseudo cyst, pancre atic cyst, or serous microc ystic adenom a of the pancre as in the approp riate clinic al charlee g.Cont inued follow -up is recomm ended. The CT exam was perfor med using one or more of the follow ing dose reduct ion techni ques: Automa roland exposu re contro l, adjust ment of the mA and/or kV accord ing to the patien t's size, or use of iterat violeta recons tructi on techni que. Electr onical ly signed by:Reymundo gary MD01/04 04:25 PM EST RP Workst ation: [id number] Dictat ed By: ADDY MCCONNELL Transc ribed By: Transc ribed On: 2023 1:24 PM Electr onical ly signed by: ADDY MCCONNELL 2023 Thank you for referr SAUNDRA Avila to [facility]. Legall y authen ticate d by FADUMO Johnson 2023-03 13:24: 19 CC'ed Logic: Orderi ng Provid er: EVERETT PERRY Attend ing Provid er: EVERETT PERRY Admitt ing Provid er: EVERETT PERRY [address] [place] [address] - Physical Therapy [address] [place] [address], [address], 07/04/2024 13:14:53 Result Notes Documentation Provider Name and Address Organization Details Recorded Time Ct, Abdomen, W/ Contrast : [place] [address] Name: SAUNDRA VELA Exam Date: 01/23/2024 : 1990 Age 33 years Gender: F Physician: REGAN CURRY Facility: [facility] Facility HSV: Outpatient Exam: CT ABD W PROCEDURE DESCRIPTION: CT ABDOMEN without and with IV CONTRAST CLINICAL INDICATION: Pseudocyst of pancreas. COMPARISON: 08/10/2023 and 01/23/2023. FINDINGS: There are postoperative changes in the stomach. The lung bases are unremarkable. There is no free intraperitoneal air. The patient is status post cholecystectomy. There are splenic granuloma. There is a hypodense mass in the head of the pancreas on axial image #58 measuring approximately 1.9 cm (was 1.9 cm). Differential considerations could include pancreatic pseudocyst, pancreatic cyst, or serous microcystic adenoma of the pancreas in the appropriate clinical setting. There is stable prominence of the intrahepatic and extra hepatic biliary ducts which may related to prior cholecystectomy. The adrenal glands, and kidneys are unremarkable. The colon, terminal ileum, and appendix are unremarkable. Pelvic findings: The bladder is unremarkable. IMPRESSION: 1. Stable intrahepatic and extrahepatic biliary duct dilatation which may related to prior cholecystectomy. 2. Stable postoperative changes involving the stomach. 3. Hypodense mass involving the head of the pancreas.Differential considerations could include pancreatic pseudocyst, pancreatic cyst, or serous microcystic adenoma of the pancreas in the appropriate clinical setting.Continued follow-up is recommended. The CT exam was performed using one or more of the following dose reduction techniques: Automated exposure control, adjustment of the mA and/or kV according to the patient's size, or use of iterative reconstruction technique. Electronically signed by:Addy Marrufo MD01/23/2024 04:25 PM [facility] Dictated By: ADDY MARRUFO Transcribed By: Transcribed On: 01/23/2024 1:24 PM Electronically signed by: ADDY MARRUFO 01/23/2024 Thank you for referring SAUNDRA VELA to [facility]. Legally authenticated by MILAGROS Johnson 2024-01-23 13:24:19 CC'ed Logic: Ordering Provider: EVERETT PERRY Attending Provider: EVERETT PERRY Admitting Provider: EVERETT Holliday, DNP, MAP COMPILER, ASSISTANT PRODUCE MANAGER-C [address] [facility], [place], [address], [place] & [place] 07/04/2024 13:14:53 Problems Name Problem SNOMED Code Status Onset Date Resolution Date Notes Provider Name and Address Organization Details Recorded Time Pancreat itis 14838264 Active Licha Elizabeth melo, [place] - [facility] & [place] 5 13:25:48 Vitamin D deficien 38206661 Active Not Available [facility] 2 14:59:24 Dyslipid emia 386881077 Active Not Available [facility] 2 14:59:24 Essentia l hyperten mariya 25501352 Completed 11/25/2021 NEREIDA Melendez [address], [place], [address] , [place] & [place] 2 10:06:21 Gastroes ophageal reflux disease 898112529 Active Regan Curry PA-C [address], [place], [address] , [place] & [place] 5 16:25:26 Obstruct violeta sleep apnea syndrome 72552870 Completed 11/25/2021 Removal Reason: improved since WLS NEREIDA Melendez [address], [place], [place], [address] [place] [address] , [place] & [place] 2 10:05:53 Iron deficien cy 03303961 Active Not Available [facility] 2 14:59:24 Arthriti s 7666367 Active 2022 Pamela Artis null, [place] & [place] 3 13:29:12 Bradycar vivien 00627048 Active 2022 Pamela Artis null[place] 3 13:29:35 Supraven tricular tachycar vivien 7513782 Active 2022 Pamela Artis null[place] 3 13:29:41 Intentio nal weight loss 971237525 Active 2022 Darius Holliday DNP, SAM, ASSISTANT PRODUCE MANAGER-C [address] , [facility] [address] , [place] & [place] 3 08:48:14 Bypass of stomach Active 2022 Darius Holliday DNP, APRN, ASSISTANT PRODUCE MANAGER-C [address] , [place], [address] , [place] - [place] & [place] 3 08:48:21 Unintent ional weight gain 77385623406 4104 Active 2022 Darius Holliday, DNP, MAP COMPILER, JOE [address], [place], [address] , [place] - [place] & [place] 3 14:46:[address] of pancreas 405675151 Active 2022 Regan Curry PA-C [address], [place], [address] , [place] 3 15:31:28 Epigastr ic pain 12639464 Active 2022 Regan Curry PA-C [address], [place], [address] , [place] 3 17:35:03 Chronic idiopath ic constipa tion 53106769 Active 2022 Regan Curry PA-C [address], [place], [address] , [place] 3 15:02:11 Irritabl e bowel syndrome characte rized by constipa tion 192816953 Active 2023 Regan Curry PA-C [address], [place], [address] , [place] & [place] 4 14:16:39 Esophage al dysphagi a 96892760 Active 2024 Regan Curry PA-C [address], [place], [address] , [place] 5 08:58:38 Gastroes ophageal reflux disease without esophagi tis 695224306 Active 2024 Regan Curry PA-C [address], [place], [address] , [place] 5 12:17:00 Problem Notes None recorded. Procedures Surgical History Date Name Laterality Status Provider Name and Address Organization Details Recorded Time 06/20 Total Hysterectomy completed Maile Artis ETTA - [facility] & [place] 3 14:08:52 08/23 Gastric bypass for obesity completed NEREIDA Ibanez [address], [place], [address] , [place]TT[place] - [facility] & [place] 2 08:49:55 05/01 laparoscopic sleeve gastrectomy completed NEREIDA Melendez [address], [place], [address] , [place] [facility] & [place] 2 08:49:32 esophagogastroduodenoscopy completed Maile Chandra ETTA [facility] & [place] 3 08:30:13 Cholecystectomy completed Maile Chandra ETTA - [facility] & [place] 3 08:29:06 section completed Maile Artis ETTA - [facility] & [place] 3 08:29:13 Tubal Ligation completed Maile Artis ETTA - [facility] & [place] 3 08:29:20 Pacemaker completed Maile Artis ETTA - [facility] & [place] 3 08:29:30 destruction of lesio n of heart completed Maile Artis ETTA - [facility] & [place] 3 08:29:43 extraction of wisdom tooth completed Maile Artis ETTA - [facility] & [place] 3 08:29:49 Total Hysterectomy completed Rebecc yuko Artis ETTA - [facility] & [place] 3 14:08:28 cardiac pacemaker procedure complete mansi Mcintosh ETTA - [facility] & [place] 4 14:05:46 Imaging Results None recorded. Procedure Notes None recorded. Medical Equipment None Reported. Allergies Allergen ID Allergen Name Allergen Category Reaction Reaction Severity Criticality Documentation Date Start Date Code Code System Note Provider Name and Address Organization Details Recorded Time 30506 purified protein derivativ e of tuberculi n medicatio n Not available Not available Not available 04/13/2022 8948 RxNorm ETTA Quinn [facility] & [place] 3 13:16:36 39119 Non-stero idal anti-infl ammatory agent (substanc e) medicatio n Not available Not available Not available 07/25/2022 60830 5008 SNOMED ETTA Welch [facility] & [place] 3 14:07:02 Medications Name Sig Start Date Stop Date Status Note LastModified by Organization Details LastModified Time cyclobenzap rine 10 mg tablet TAKE 1 TABLET BY MOUTH TWICE DAILY NEEDED FOR MUSCLE SPASMS active Not Available Not Available No t Available amoxicillin 500 mg capsule 07/04 completed Not Available Not Available Not Available acetaminoph en 325 mg tablet 650 mg by oral route. 03/26 completed Not Available Not Available Not Available cyanocobala min (vit B-12) 2,500 mcg sublingual tablet active Not Available Not Available Not Available tramadol 37.5 mg-acetamin ophen 325 mg tablet TAKE 1 TABLET BY MOUTH EVERY 6 HOURS NEEDED FOR MODERATE PAIN 07/25 completed Not Available Not Available Not Available fluconazole 150 mg tablet TAKE ONE TABLET BY MOUTH A ONE-TIME DOSE, MAY REPEAT second DOSE in 72 hours if needed 04/13 completed Not Available Not Available Not Available hydrocodone 5 mg-acetamin ophen 325 mg tablet TAKE 1 TABLET BY MOUTH EVERY 6 HOURS NEEDED FOR MODERATE PAIN 06/18 completed Not Available Not Available Not Available sucralfate 100 mg/mL oral suspension SHAKE LIQUID AND TAKE 10 ML BY MOUTH FOUR TIMES DAILY active Not Available Not Available No t Available ondansetron HCl 8 mg tablet TAKE 1 TABLET BY MOUTH EVERY 12 HOURS NEEDED FOR NAUSEA OR VOMITING active Not Available Not Available No t Available meloxicam 15 mg tablet TAKE 1 TABLET BY MOUTH EVERY DAY 11/25 completed Not Available Not Available Not Available sucralfate 1 gram tablet TAKE 1 TABLET BY MOUTH FOUR TIMES DAILY FOR 20 DAYS 09/12 completed Not Available Not Available Not Available ondansetron HCl 4 mg tablet 4 mg by oral route. 09/12 completed Not Available Not Available Not Available estradiol 0.1 mg/24 hr semiweekly transdermal patch APPLY 1 PATCH TRANSDERM ALLY SEMI WEEKLY active Not Available Not Available No t Available metronidazo le 250 mg tablet 250 mg by oral route. 03/26 completed Not Available Not Available Not Available Milk of Magnesia 400 mg/5 mL oral suspension 30 mL by oral route. 03/26 completed Not Available Not Available Not Available lactated Ringers intravenous solution 1000 mL by intraven. route. 03/26 completed Not Available Not Available Not Available metronidazo le 500 mg tablet TAKE 1 TABLET BY MOUTH THREE TIMES DAILY 04/13 completed Not Available Not Available Not Available phentermine 37.5 mg tablet TAKE 1/2 TABLET BY MOUTH TWICE DAILY active Not Available Not Available No t Available ciprofloxac in 500 mg tablet TAKE 1 TABLET BY MOUTH TWICE DAILY 05/22 completed Not Available Not Available Not Available ketorolac 30 mg/mL (1 mL) injection solution 30 mg by injection route. 03/22 completed Not Available Not Available Not Available Thera 400 mcg tablet 1 tablet by oral route. 03/26 completed Not Available Not Available Not Available oxycodone-a cetaminophe n 5 mg-325 mg tablet TAKE 1 TABLET BY MOUTH EVERY 6 HOURS FOR 3 DAYS 05/22 completed Not Available Not Available Not Available famotidine 20 mg tablet TAKE 1 TABLET BY MOUTH TWICE DAILY 09/12 completed Not Available Not Available Not Available calcium 500 mg (as calcium carbonate 1,250 mg) tablet Take 1 {tablet_w ith_meals } twice a day by oral route. 04/13 completed Not Available Not Available Not Available IBU 600 mg tablet 600 mg by oral route. 03/26 completed Not Available Not Available Not Available dicyclomine 20 mg tablet TAKE 1 TABLET BY MOUTH FOUR TIMES DAILY NEEDED FOR ABDOMINAL PAIN 06/18 completed Not Available Not Available Not Available piperacilli n-tazobacta m 3.375 gram intravenous solution 3.375 g by intraven. route. 03/263 completed Not Available Not Available Not Available bisacodyl 10 mg rectal suppository 10 mg by rectal route. 03/26 completed Not Available Not Available Not Available Betasept Surgical Scrub 4 % topical liquid WASH BACK NIGHT BEFORE AND MORNING OF SURGERY active Not Available Not Available No t Available pantoprazol e 40 mg tablet,jennyfer yed release TAKE 1 TABLET BY MOUTH TWICE DAILY 30 TO 60 MINUTES BEFORE THE MORNING AND EVENING MEAL active Not Available Not Available No t Available cyanocobala min (vit B-12) 1,000 mcg/mL injection solution ADMINISTE R 1 ML UNDER THE SKIN EVERY WEEK FOR 42 DAYS active Not Available Not Available No t Available ferrous sulfate 325 mg (65 mg iron) tablet 1 {tablet} by oral route. active Not Available Not Available No t Available esomeprazol e magnesium 40 mg capsule,del ayed release 08/25 completed Not Available Not Available Not Available gabapentin 300 mg capsule TAKE ONE CAPSULE BY MOUTH THREE TIMES DAILY NEEDED 11/25 completed Not Available Not Available Not Available buspirone 7.5 mg tablet TAKE 1 TABLET BY MOUTH TWICE DAILY active Not Available Not Available No t Available omeprazole 20 mg capsule,del ayed release Take 1 capsule twice a day by oral route for 30 days. 09/12 completed Not Available Not Available Not Available gabapentin 100 mg capsule TAKE 1 CAPSULE BY MOUTH THREE TIMES DAILY 07/04 completed Not Available Not Available Not Available metoprolol succinate ER 25 mg tablet,exte nded release 24 hr TAKE 1 TABLET BY MOUTH DAILY 07/25 completed Not Available Not Available Not Available ergocalcife rol (vitamin D2) 1,250 mcg (50,000 unit) capsule TAKE 1 CAPSULE BY MOUTH WEEKLY 07/04 completed Not Available Not Available Not Available scopolamine 1 mg over 3 days transdermal patch 1 mg by transderm . route. 03/26 completed Not Available Not Available Not Available celecoxib 100 mg capsule TAKE 1 CAPSULE BY MOUTH TWICE DAILY WITH FOOD FOR 7 DAYS 11/25 completed Not Available Not Available Not Available bromphenira mine-pseudo ephedrine-D M 2 mg-30 mg-10 mg/5 mL oral syrup TAKE 10 ML BY MOUTH FOUR TIMES DAILY NEEDED FOR COUGH OR ALLERGIES 05/22 completed Not Available Not Available Not Available ondansetron 4 mg disintegrat ing tablet DISSOLVE 1 TABLET ON THE TONGUE EVERY 6 TO 8 HOURS NEEDED active Not Available Not Available No t Available estradiol 0.1 mg/24 hr weekly transdermal patch APPLY 1 PATCH TOPICALLY TO THE SKIN WEEKLY active Not Available Not Available No t Available loratadine 10 mg tablet TAKE 1 TABLET BY MOUTH DAILY active Not Available Not Available No t Available diazepam 5 mg tablet TAKE 1 TABLET BY MOUTH 30 MINUTES PRIOR TO PROCEDURE AND BRING 2ND TABLET WITH YOU TO TAKE NEEDED 06/18 completed Not Available Not Available Not Available amoxicillin 875 mg-potassiu m clavulanate 125 mg tablet TAKE 1 TABLET BY MOUTH TWICE DAILY FOR 7 DAYS 05/22 completed Not Available Not Available Not Available oxycodone 5 mg tablet TAKE ONE TABLET BY MOUTH EVERY 4 HOURS NEEDED FOR moderate pain MAY CAUSE DROWSINES S 07/25 completed Not Available Not Available Not Available enoxaparin 40 mg/0.4 mL subcutaneou s syringe 40 mg by sub-q route. 03/26 completed Not Available Not Available Not Available sodium chloride 0.9 % (flush) injection syringe 10 mL by injection route. 03/26 completed Not Available Not Available Not Available hydromorpho ne 1 mg/mL injection syringe 1 mg by injection route. 03/26 completed Not Available Not Available Not Available escitalopra m 10 mg tablet TAKE 1 TABLET BY MOUTH DAILY 07/04 completed Not Available Not Available Not Available escitalopra m 20 mg tablet TAKE 1 TABLET BY MOUTH DAILY active Not Available Not Available No t Available omeprazole magnesium 20 mg tablet,jennyfer yed release Take twice a day by oral route. 11/25 completed Not Available Not Available Not Available bupropion HCl XL 150 mg 24 hr tablet, extended release TAKE 1 TABLET BY MOUTH DAILY active Not Available Not Available No t Available Climara Pro 0.045 mg-0.015 mg/24 hr transdermal patch APPLY 1 PATCH TOPICALLY TO THE SKIN WEEKLY active Not Available Not Available No t Available pregabalin 50 mg capsule TAKE 1 CAPSULE BY MOUTH TWICE DAILY 07/07 completed Not Available Not Available Not Available pregabalin 75 mg capsule TAKE 1 CAPSULE BY MOUTH EVERY DAY AT BEDTIME active Not Available Not Available No t Available sodium chloride 0.9 % intravenous piggyback 100 mL by intraven. route. 03/26 completed Not Available Not Available Not Available multivitami n active Not Available Not Available Not Available lubiproston e 24 mcg capsule TAKE 1 CAPSULE BY MOUTH TWICE DAILY 06/18 completed Not Available Not Available Not Available BD Integra Syringe 3 mL 25 gauge x 1 USE WITH BEFORE-12 INJECTION S ONCE WEEKLY 01/29 completed Not Available Not Available Not Available cholecalcif carol[place] (vitamin D3) 25 mcg (1,000 unit) tablet TAKE 2 TABLETS BY MOUTH ONCE DAILY 02/20 completed Not Available Not Available Not Available ondansetron HCl (PF) 4 mg/2 mL injection solution 4 mg by injection route. 03/24 completed Not Available Not Available Not Available cholecalcif [place] (vitamin D3) 1,250 mcg (50,000 unit) capsule TAKE 1 CAPSULE BY MOUTH ONCE WEEKLY active Not Available Not Available No t Available ferrous sulfate 324 mg (65 mg iron) tablet,jennyfer yed release 325 mg by oral route. 2022 active Not Available Not Available Not Avai lable magnesium sulfate 2 gram/50 mL (4 %) in water intravenous piggyback 2 g by intraven. route. 03/23 completed Not Available Not Available Not Available cholecalcif car[place] (vitamin D3) 50 mcg (2,000 unit) tablet TAKE 1 TABLET BY MOUTH EVERY DAY 11/25 completed Not Available Not Available Not Available dexlansopra zole 60 mg capsule,bip hase delayed release TAKE 1 CAPSULE BY MOUTH EVERY DAY 08/25 completed Not Available Not Available Not Available HealthyLax 17 gram oral powder packet 17 g by oral route. 03/26 completed Not Available Not Available Not Available morphine 2 mg/mL intravenous syringe 2 mg by intraven. route. 03/22 completed Not Available Not Available Not Available Probiotic (S.boulardi i) 250 mg capsule 250 mg by oral route. 2022 active Not Available Not Available Not Avai lable Aspercreme (lidocaine) 4 % topical patch active Not Available Not Available Not Available ID NOW COVID-19 Test Kit TEST DIRECTED TODAY 11/25 completed Not Available Not Available Not Available Ibsrela 50 mg tablet TAKE 1 TABLET BY MOUTH TWICE DAILY active Not Available Not Available No t Available Voquezna 10 mg tablet Take by oral route for 30 days. active Not Available Not Available No t Available Vitals Date Recorded Body height Body temperature Heart rate Body mass index (BMI) Body weight Systolic And Diastolic Provider Name and Address Organization Details Last Updated DateTime 5 152.4 cm 98.3 [degF] 76 /min 36.2 kg/m2 11260.3 8 g 93/66 mm[Hg] Brisa Mcintosh [facility] & [place] 5 13:11:41 Date Recorded Body height Body mass index (BMI) Body weight Body temperature Oxygen saturation Oxygen saturation in Arterial blood by Pulse oximetry Heart rate Systolic And Diastolic Provider Name and Address Organization Details Last Updated DateTime 5 152.4 cm 36.5 kg/m2 52912.0 5 g 99.9 [degF] 100 % 100 % 67 /min 101/70 mm[Hg] Grant wilkins [facility] & [place] 5 08:46:44 Date Recorded Body height Body mass index (BMI) Body weight Provider Name and Address Organization Details Last Updated DateTime 01/02/2024 152.4 cm 32.4 kg/m2 04014.33 g Brisalacey Mcintosh [facility] & [place] 01/02/2024 13:45:25 Date Recorded Body height Body mass index (BMI) Body weight Body temperature Oxygen saturation Oxygen saturation in Arterial blood by Pulse oximetry Heart rate Heart rate Systolic And Diastolic Provider Name and Address Organization Details Last Updated DateTime 4 152.4 cm 34.5 kg/m2 94138.4 9 g 98.1 [degF] 98 % 98 % 100 /min 97 /min 162/81 mm[Hg] Jacquie Carl [facility] & [place] 4 08:30:45 Social History Question Answer Notes LastModified by Organizat ion Details LastModified Time Tobacco Smoking Status Never Smoker Not Available [facility] 02/15/2022 14:59:25 What Is Your Level Of Caffeine Consumption? Moderate [email or web address] Information not available 01/02/2024 Sex: Female Functional Status Question Answer Note LastModified by Organizat ion Details LastModified Time Do you use any illicit or recreational drugs? No [email or web address] Information not available 07/25/2022 What is your level of alcohol consumption? None [email or web address] Information not available 01/02/2024 Mental Status None recorded. Family History Relationship Description Onset Age of this Age Resolved Age Notes LastModified by Organization Details LastModified Time Sister Anemia pt. added direct ly (07/24) [email or web address] Not available 07/24/2022 13:59:58 Sister Obesity pt. added direct ly (07/24) [email or web address] Not available 07/24/2022 14:00:59 Sister Disorder of thyroid gland pt. added direct ly (07/24) [email or web address] Not available 07/24/2022 14:01:10 Maternal Grandmother Myocardial infarction pt. added direct ly (07/24) [email or web address] Not available 07/24/2022 14:00:12 Mother Hypertensive disorder pt. added direct ly (07/24) [email or web address] Not available 07/24/2022 14:00:20 Mother Obesity pt. added direct ly (07/24) [email or web address] Not available 07/24/2022 14:00:59 Mother Disorder of thyroid gland pt. added direct ly (07/24) [email or web address] Not available 07/24/2022 14:01:10 Father Heart disease pt. added direct ly (07/24) [email or web address] Not available 07/24/2022 14:00:35 Father Obesity pt. added direct ly (07/24) [email or web address] Not available 07/24/2022 14:00:59 Notes:hypsertension mother t hyroid problems father Medical History Condition Response Heart Problems Y Other Y Vision or Eye Problems Y Difficulty Swallowing Y Reflux/GERD Y Sleep Apnea Y GERD/Reflux Y Back Problems Y Varicosities Y Chicken Pox Y Gynecological HistoryNo gynecological history recorded. Obstetrics History GPAL:G 0 P 0 0 0 0 Immunizations Vaccine Type Date Status Note Provider Nam e and Address Organization Details Recorded Time influenza, unspecified formulation 3 completed Brisa Mcint[place] [facility] & [place] 12/13/2022 14:29:23 Hib, unspecified formulation 2 completed Licha Kearns [place] & [place] 07/08/2024 13:28:01 IPV 2 completed Licha [place]ear[place] 07/08/2024 13:28:01 IPV 3 completed Licha [place]ear[place] 07/08/2024 13:28:01 IPV 4 completed Licha [place] 07/08/2024 13:28:01 IPV 0 completed Licha [place] 07/08/2024 13:28:01 MMR 2 completed Licha [place] 07/08/2024 13:28:01 MMR 1 completed Licha [place] & [place] 07/08/2024 13:28:01 COVID-19, mRNA, LNP-S, PF, 100 mcg/0.5mL dose or 50 mcg/0.25mL dose 2 completed Licha [place] 07/08/2024 13:28:01 COVID-19, mRNA, LNP-S, PF, 100 mcg/0.5mL dose or 50 mcg/0.25mL dose 1 completed Licha [place] 07/08/2024 13:28:01 Hep B, unspecified formulation 2 completed Licha [place] 07/08/2024 13:28:01 Hep B, unspecified formulation 1 completed Licha [place] 07/08/2024 13:28:01 Hep B, unspecified formulation 1 completed Licha [place] 07/08/2024 13:28:01 Influenza, split virus, trivalent, preservative 0 completed Licha [place] 07/08/2024 13:28:01 Influenza, split virus, trivalent, preservative 1 completed Licha [place] 07/08/2024 13:28:01 Td (adult) 4 completed Licha [place] 07/08/2024 13:28:01 Hep A, adult 9 completed Licha [place] 07/08/2024 13:28:01 Hep A, adult 8 completed Licha [place] 07/08/2024 13:28:01 DTaP, unspecified formulation 4 completed Licha [place] 07/08/2024 13:28:01 DTaP, unspecified formulation 2 completed Licha [place] 07/08/2024 13:28:01 DTaP, unspecified formulation 3 completed Licha [place] 07/08/2024 13:28:01 DTaP, unspecified formulation 4 completed Licha [place]ear[place] 07/08/2024 13:28:01 DTaP, unspecified formulation 0 completed Licha Kearns [facility] - [place] & [place] 07/08/2024 13:28:01 Past Encounters Encounter ID Performer Location Encounter Start Date Encounter Closed Date Diagnosis/Indication Diagnosis SNOMED-CT Code Diagnosis ICD10 Code Diagnosis IMO Codes Diagnosis Note [id number] NEREIDA Melendezdel rio n Bariatric s and Adv S[facility] [facility] [address] 11/25/2021 09:44:54 11/25/2021 10:16:56 Intentional weight loss 141764726 R63.8 Patient is doing well status post conversion Harvinder-en-Y encouraged patient to continue high-prote in diet. She is to report any ongoing prandial issues.We will see patient in follow-up in 3 months. We Plan repeat fasting labs at that time. History of gastrectomy 752855867 Z90.3 Advised qid intake 50% protein 1000 calories/d y less than 100 carbs/dy Patient is status post bariatric surgery and at increased risk for vitamin deficienci es and malnutriti on. Bariatric vitamin panel ordered today. Patient will be contacted to correct any vitamin deficienci es. Iron deficiency 81551980 E61.1 We are checking bariatric lab panel will contact patient to correct any deficienci es. We discussed possibilit y of needed iron infusion if iron deficiency persists. Vitamin D deficiency 347 63102 E55.9 Dyslipidemia 587898884 E 78.5 [id number] NEREIDA Melendez [facility] Bariatric s and Adv Surg [address] [facility] [address] [facility] [address] 02/20/2022 08:48:23 02/20/2022 11:01:48 Iron deficiency 19345991 E61.1 We are checking bariatric lab panel will contact patient to correct any deficienci es. We discussed possibilit y of needed iron infusion if iron deficiency persists. Vitamin D deficiency 347 71707 E55.9 Intentiona l weight loss 719849243 R63.8 Patient is doing well status post conversion Harvinder-en-Y encouraged patient to continue high-prote in diet. She is to report any ongoing prandial issues.We will see patient in follow-up in 3 months. We Plan repeat fasting labs at that time. History of gastrectomy 778437470 Z90.3 Advised qid intake 50% protein 1200 calories/d y less than 100 carbs/dyLo ng discussion today of [employer] results including PBF(percen t body fat) SMM (skeletal muscle mass) Visceral fat level level BMR Segmental Fat Analysis and Segmental Lean Analysis.E ncouraged pt to take minimal calories as per BMR and to anticipate changes in SMM and PBF values not just total weight.Fol low-up with Repeat LC in 3mth suggested Patient is status post bariatric surgery and at increased risk for vitamin deficienci es and malnutriti on. Bariatric vitamin panel ordered today. Patient will be contacted to correct any vitamin deficienci es. Dysphagia 04581395 R13.1 0 we will schedule patient for upper endoscopy to further evaluate dysphagia status post Harvinder-en-Y gastric bypass. [id number] Ileana Squires M.D [address] [facility] [place] [address] 02/21/2022 10:43:06 02/21/2022 14:13:08 Mass of pancreas 726040126 K86.89 19 mm pancreatic lesion noted. This was noted on CT scan for abdominal pain, no known family history of pancreatic cancer. Patient has had a gastric sleeve in 2018 as well as gastric bypass Harvinder-en- Y. Also cholecyste ctomy. She will need further evaluation with endoscopic ultrasound if her anatomy allows this. We have made a referral to Dr. wheatley, for further evaluation . [id number] Regan Curry PA-C [facility] [address] [facility] [address] [place] [address] 04/13/2022 13:10:40 04/13/2022 13:45:38 Pseudocyst of pancreas 337338089 K86.3 Gastroesop hageal reflux disease 562637015 K21.9 History of bypass of stomach 248398899 Z98.84 [id number] Darius Holliday, DNP, MAP COMPILER, ASSISTANT PRODUCE MANAGER-C [facility] and [facility] S[facility] [address] [facility] [address] [place] [address] 05/22/2022 08:22:08 05/22/2022 08:49:47 History of bariatric surgical procedure 978382582 Z98.84 Advised qid intake 50% protein 0999-3461 calories/d y less than 100 carbs/dyLo ng discussion today of InBody results including PBF(percen t body fat) SMM (skeletal muscle mass) Visceral fat level level BMR Segmental Fat Analysis and Segmental Lean Analysis. Patient encouraged pt to take minimal calories as per BMR and to anticipate changes in SMM and PBF values not just total weight. Repeat LC in 2-3mth suggestedP atient is to have bariatric vitamin lab panel. Patient was reassured on today's visit. Dialogue content in great detail regarding the benefits of proper diet as well as regular and routine exercise. In regards to exercise, we discussed reaching target heart rate for least 20 minutes 3 times a week. We also highlighte d the importance of staying well hydrated. Proper handwashin g was also encouraged . Patient was advised to keep in close contact with their primary care provider and/or any specialty provider (s). We will contact patient with any deficienci es. Pt would like fundraiser to contact her. History of gastrectomy 404612365 Z90.3 Patient is status post bariatric surgery and at increased risk for vitamin deficienci es and malnutriti on. Bariatric vitamin panel ordered today. Patient will be contacted to correct any vitamin deficienci es. Iron deficiency 75530664 E61.1 Vitamin D deficiency 347 25619 E55.9 Dyslipidemia 314495705 E 78.5 Intentiona l weight loss 455266162 R63.8 [id number] NEREIDA Melendez [facility] Bariatric s and Adv Surg [address] [facility] [address] [facility] [place] [place] [address] 07/25/2022 14:05:38 07/25/2022 16:21:15 Esophageal dysphagia 86523108 R13.19 Will have patient stop omeprazole and continue pantoprazo le. We will add famotidine and Carafate. Discussed concern for gastritis/ ulcer disease. Patient will be scheduled for upper endoscopy to further evaluate reflux/dys phagia status post Harvinder-en-Y gastric bypass.All risks complicati ons alternativ es to upper endoscopy were discussed with patient today. These include but are not limited to perforatio n bleeding infection. Vitamin D deficiency 347 89701 E55.9 Patient is to continue weekly [address] vitamin D3. We will recheck labs in August 2022 History of bypass of stomach 907820967 Z98.84 Encouraged patient to continue focus on healthy diet. Encouraged 70 g of protein daily. Patient is to continue vitamin supplement ation. She will be due bariatric vitamin lab check in August 2022 [id number] Darius Holliday DNP, MAP COMPILER, ASSISTANT PRODUCE MANAGER-C [facility] [address] [facility] [address] [place] [address] 09/12/2022 14:08:25 09/12/2022 15:15:35 History of bariatric surgical procedure 462268452 Z98.84 Advised qid intake 50% protein 6702-8997 calories/d y less than 100 carbs/dy Patient is to have bariatric vitamin lab panel. Patient was reassured on today's visit. Dialogue content in great detail regarding the benefits of proper diet as well as regular and routine exercise. In regards to exercise, we discussed reaching target heart rate for least 20 minutes 3 times a week. We also highlighte d the importance of staying well hydrated. Proper handwashin g was also encouraged . Patient was advised to keep in close contact with their primary care provider and/or any specialty provider (s). We will contact patient with any deficienci es. Pt will see dietitian today. Intentiona l weight loss 030730886 R63.8 History of gastrectomy 497796377 Z90.3 Advised qid intake 50% protein 8972-3843 calories/d y less than 100 carbs/dy Patient is status post bariatric surgery and at increased risk for vitamin deficienci es and malnutriti on. Bariatric vitamin panel ordered today. Patient will be contacted to correct any vitamin deficienci es. Dyslipidemia 088288914 E 78.5 Iron deficiency 26686741 E61.1 Vitamin D deficiency 347 88796 E55.9 Unintentio nal weight gain 3709773587 24253 R63.5 [id number] Darius Holliday, EMILY, MAP COMPILER, ASSISTANT PRODUCE MANAGER-C [facility] [address] [facility] [address] [place] [address] 12/13/2022 14:20:17 12/13/2022 14:44:28 History of bariatric surgical procedure 859075310 Z98.84 Advised qid intake 50% protein 3222-7676 calories/d y less than 100 carbs/dy Patient is to have bariatric vitamin lab panel. Patient was reassured on today's visit. Dialogue content in great detail regarding the benefits of proper diet as well as regular and routine exercise. In regards to exercise, we discussed reaching target heart rate for least 20 minutes 3 times a week. We also highlighte d the importance of staying well hydrated. Proper handwashin g was also encouraged . Patient was advised to keep in close contact with their primary care provider and/or any specialty provider (s). We will contact patient with any deficienci es. I offered dietitian today, pt declines. Intentiona l weight loss 688797639 R63.8 History of gastrectomy 306735001 Z90.3 Advised qid intake 50% protein 7572-3127 calories/d y less than 100 carbs/dyFo llow-up with Repeat LC in 3mth suggested Patient is status post bariatric surgery and at increased risk for vitamin deficienci es and malnutriti on. Bariatric vitamin panel ordered today. Patient will be contacted to correct any vitamin deficienci es. Arthritis 5985024 M19.90 Dyslipidemia 150117515 E 78.5 Iron deficiency 14464654 E61.1 Unintentio nal weight gain 5114970208 63607 R63.5 Vitamin D deficiency 347 30344 E55.9 [id number] Regan Curry PA-C [facility] [address] [address] 12/19/2022 14:30:55 12/19/2022 15:36:24 Pseudocyst of pancreas 406887962 K86.3 Gastroesop hageal reflux disease 738386165 K21.9 History of bypass of stomach 426653157 Z98.84 Epigastric pain 74978004 R10.13 [id number] Regan Curry PA-C [facility] [address] [address] 02/01/2023 14:01:21 02/01/2023 15:13:41 Pseudocyst of pancreas 862157858 K86.3 Gastroesop hageal reflux disease 507743881 K21.9 History of bypass of stomach 691175976 Z98.84 Epigastric pain 55561771 R10.13 Chronic id iopathic constipation 52530034 K59.04 [id number] Regan Curry PA-C [facility] [address] [facility] [address] [place] [address] 04/03/2023 13:47:28 04/03/2023 14:27:22 Pseudocyst of pancreas 272153097 K86.3 Gastroesop hageal reflux disease 647581084 K21.9 History of bypass of stomach 218464680 Z98.84 Epigastric pain 76875653 R10.13 Irritable bowel syndrome characterized by constipation 993540359 K58.1 [id number] Darius Holliday, DNP, MAP COMPILER, ASSISTANT PRODUCE MANAGER-C [facility]ariatric s and Adv Surg [address] [facility] [address] [place] [address] 06/19/2023 14:25:21 06/19/2023 15:04:41 History of bariatric surgical procedure 717692437 Z98.84 Advised qid intake 50% protein 0345-8290 calories/d y less than 100 carbs/dy Long discussion today of InBody results including PBF(percen t body fat) SMM (skeletal muscle mass) Visceral fat level level BMR Segmental Fat Analysis and Segmental Lean Analysis. Patient encouraged pt to take minimal calories as per BMR and to anticipate changes in SMM and PBF values not just total weight. Repeat LC in 2-3mth suggested Patient is to have bariatric vitamin lab panel. Patient was reassured on today's visit. Dialogue content in great detail regarding the benefits of proper diet as well as regular and routine exercise. In regards to exercise, we discussed reaching target heart rate for least 20 minutes 3 times a week. We also highlighte d the importance of staying well hydrated. Proper handwashin g was also encouraged . Patient was advised to keep in close contact with their primary care provider and/or any specialty provider (s). We will contact patient with any deficienci es. Dyslipidemia 380564479 E 78.5 Iron deficiency 67759957 E61.1 Vitamin D deficiency 347 73205 E55.9 History of gastrectomy 896899727 Z90.3 Advised qid intake 50% protein 1978-6404 calories/d y less than 100 carbs/dyI would like to dietitian to see patient today. Patient is status post bariatric surgery and at increased risk for vitamin deficienci es and malnutriti on. Bariatric vitamin panel ordered today. Patient will be contacted to correct any vitamin deficienci es. Arthritis 3456688 M19.90 Chronic id iopathic constipation 55331782 K59.04 Unintentio nal weight gain 7718947919 [id number] [facility] S[facility] [address] [place] [address] [address] [place] [address] 06/19/2023 15:00:14 06/19/2023 15:48:53 Diet education 52313793 Z71.3 [id number] Regan Curry PA-C [facility] [address] [facility] [address] [place] [address] 08/03/2023 09:16:13 08/03/2023 09:22:58 Pseudocyst of pancreas 742426835 K86.3 Gastroesop hageal reflux disease 239295673 K21.9 History of bypass of stomach 015059384 Z98.84 Epigastric pain 87416021 R10.13 Irritable bowel syndrome characterized by constipation 970401711 K58.1 [id number] Darius Holliday DNP, SAM, ASSISTANT PRODUCE MANAGER-C [facility] [address] [place] [address] [address] [place] [address] 2023 13:52:43 2023 14:25:39 Dyslipidemia 975935843 E78.5 Iron deficiency 13683387 E61.1 Advised qid intake 50% protein 5285-5370 calories/d y less than 100 carbs/dy Patient is status post bariatric surgery and at increased risk for vitamin deficienci es and malnutriti on. Bariatric vitamin panel ordered today. Patient will be contacted to correct any vitamin deficienci es Vitamin D deficiency 347 58907 E55.9 Intentiona l weight loss 195703209 R63.8 [id number] Darius Holliday DNP, SAM, ASSISTANT PRODUCE MANAGER-C [facility] and [facility] S[facility] [address] [place] [address] [address] [place] [address] 01/02/2024 13:44:17 01/02/2024 14:06:10 History of bariatric surgical procedure 046152794 Z98.84 Advised qid intake 50% protein 8209-0939 calories/d y less than 100 carbs/dy Patient is to have bariatric vitamin lab panel. Patient was reassured on today's visit. Dialogue content in great detail regarding the benefits of proper diet as well as regular and routine exercise. In regards to exercise, we discussed reaching target heart rate for least 20 minutes 3 times a week. We also highlighte d the importance of staying well hydrated. Proper handwashin g was also encouraged . Patient was advised to keep in close contact with their primary care provider and/or any specialty provider (s). We will contact patient with any deficienci es. I offered dietitian visit, pt declines. I spent a total of [ 20 ] minutes during this real-time clinical encounter started at [ 140 ] and ended at [ 200 ]. Consent was obtained to engage in telehealth service. Greater than 50% of the time spent was devoted to counseling and coordinati ng care including review of patient record, patient lab data and studies as well as discussing diagnostic evaluation and workup, planned therapeuti c interventi on and further dispositio n of care. This include any additional research needed to obtain further informatio n in formulatin g the plan of care for this patient. This includes counseling the patient about their disease and diagnosis, specifical ly as above. The patient was also counseled on the precaution for COVID-19 including importance of hand washing and social distancing . Intentiona l weight loss 878566352 R63.8 At [facility] risk of nutritional deficit 318846655 Z91.89 Dyslipidemia 272294051 E 78.5 Vitamin D deficiency 347 80859 E55.9 Iron deficiency 72747083 E61.1 Advised qid intake 50% protein 3278-1442 calories/d y less than 100 carbs/dy Patient is status post bariatric surgery and at increased risk for vitamin deficienci es and malnutriti on. Bariatric vitamin panel ordered today. Patient will be contacted to correct any vitamin deficienci es Pseudocyst of pancreas 533865828 K86.3 Unintentio nal weight gain 9407685256 24653 R63.5 [id number] Regan Curry PA-C [facility] [address] [place] [address] 01/14/2024 08:22:33 01/14/2024 09:09:59 Pseudocyst of pancreas 572858000 K86.3 Gastroesop hageal reflux disease 186639007 K21.9 History of bypass of stomach 425986735 Z98.84 Epigastric pain 71009588 R10.13 Irritable bowel syndrome characterized by constipation 506300918 K58.1 [id number] Darius Holliday, DNP, MAP COMPILER, ASSISTANT PRODUCE MANAGER-C [facility] and Adv S[facility] [address] [facility] [address] [place] [address] 07/04/2024 12:59:18 07/04/2024 13:29:34 History of bariatric surgical procedure 491293695 Z98.84 [id number] Intentiona l weight loss 477676189 R63.8 History of gastrectomy 704135181 Z90.3 Advised qid intake 50% protein 2629-2831 calories/d y less than 100 carbs/dy Long discussion today of InBody results including PBF(percen t body fat) SMM (skeletal muscle mass) Visceral fat level level BMR Segmental Fat Analysis and Segmental Lean Analysis. Encouraged pt to take minimal calories as per BMR and to anticipate changes in SMM and PBF values not just total weight. Follow-up with Repeat LC in 3mth suggested Patient is status post bariatric surgery and at increased risk for vitamin deficienci es and malnutriti on. Bariatric vitamin panel ordered today. Patient will be contacted to correct any vitamin deficienci es. At [facility] risk of nutritional deficit 279590751 Z91.89 Dyslipidemia 618485695 E 78.5 Iron deficiency 66605979 E61.1 Vitamin D deficiency 347 40532 E55.9 [id number] Regan Curry PA-C [facility] [address] [facility] [address] [place] [address] 07/07/2024 08:41:22 07/07/2024 09:14:47 Pseudocyst of pancreas 228302740 K86.3 Gastroesop hageal reflux disease 270771457 K21.9 History of bypass of stomach 217114107 Z98.84 Epigastric pain 10406014 R10.13 Irritable bowel syndrome characterized by constipation 655798611 K58.1 Esophageal dysphagia 408 29089 R13.19 8211 [id number] Regan Curry PA-C [facility] [address] [facility] [address] [facility] [place] [address] 08/25/2024 11:34:01 08/25/2024 11:53:33 Epigastric pain 40115108 R10.13 EGD showed reactive gastropath y on biopsy. Start Sucralfate . Pseudocyst of pancreas 106125116 K86.3 -Resolved History of bypass of stomach 905055570 Z98.84 Gastroesop hageal reflux disease without esophagitis 774669315 K21.9 Change timing of PPI administra tion to 30 minutes before morning and evening meal Health Concerns Section Related Observation LastModified by Organization Detai ls LastModified Time None Recorded Concern Status LastModified by Organization Details LastModified Time None Recorded Advance Directives Directive None Recorded Payers Insurance Date Sequence Insurance Name Policy Number Policy Mckay Covered Member ID Mckay Member ID Guarantor Name 07/04/2024 1 [place] [id number] 3 Carlos Alberto T Rice [id number] Saundra L Rice 08/24/2024 1 [employer] [facility] [place] Saundra L Rice [id number] Saundra L Rice 07/07/2024 1 [place] [employer] [place] [place] Saundra L Rice [id number] Saundra L Rice 04/07/2022 1 [place] Saundra L Rice [id number] Saundra L Rice 2023 2 [employer] [facility] (MEDICAID HMO) Saundra L Rice [id number] Saundra L Rice 08/23/2023 3 MEDICAID-[facility] - FFS/TRADITIO NAL Saundra L Rice [id number] Saundra L Rice Notes Date Note Type Note Provider Name and Address Organization Details Recorded Time 01/02/2024 text/html ROS as noted in the HPI Patient presents the office today via telehealth for routine follow-up status post bariatric gastric Harvinder-en-Y gastric bypass surgery August 2021. Patient doing well. Reports q.i.d. small meal intake. Reports >70g/dy protein intake and good hydration.Patient is drinking 48 ounces of water a day.Daily Calories 1500-1700Taking routine vitamins as advised. Hx of Iron and Vit D deficiencyHeartburn/g astroesophageal reflux: denies (still takes PPI). She sees Dr. Wheatley on a regular basis.Pt Denies : abdominal pain, prandial issues Nausea, Vomiting, bowel or bladder issuesTotal Weight gain Since last office visit has been 1 lbsPt is happy with their quality of life after Weight loss Surgery. Did not get Inbody today due to this being a telehealth appt. Darius Holliday, DNP, MAP COMPILER, ASSISTANT PRODUCE MANAGER-C [address], [place], [address], [facility] & [place] 01/02/2024 14:09:17 01/14/2024 text/html CURRENT (01/14/24): Ms. Vela returns to the office today for 6 month follow-up regarding history of pancreatic pseudocyst, abdominal pain, GERD, and chronic constipation. She previously had improvement in abdominal pain following EUS with Celiac plexus block last January. Today, she reports some recent recurrence of epigastric pain. This is mild overall and worse with deep palpation. She reports good appetite. She had recent CMP, TSH, iron study, ferritin, A1C, and extensive vitamin panel performed with Bariatrics 12 days ago. I have reviewed these and the results are unremarkable. She has experienced heartburn even after gastric bypass. This continues to be well managed on pantoprazole twice daily. She has increase in chest burning if she misses a dose. Her bowel habits are currently well managed with use of Ibsrela twice daily. Regan Curry PA-C [address], [place], [address], [facility] & [place] 01/14/2024 08:54:02 07/04/2024 text/html ROS as noted in the HPI Patient presents the office today for routine 36 month follow-up status post bariatric gastric Harvinder-en-Y gastric bypass surgery August 2021. Patient doing well. Reports q.i.d. small meal intake. Reports has not been counting, but est 80-90 g/dy protein intake and good hydration.Patient is drinking 64 ounces of water a day.Daily Calories: has not been counting, but est 1500-1800Taking routine vitamins as advised. Hx of Iron and Vit D deficiencyHeartburn/g astroesophageal reflux: denies.Pt Denies : abdominal pain, prandial issues Nausea, Vomiting, bowel or bladder issuesTotal Weight gain Since last office visit has been 9 lbsPt is happy with their quality of life after Weight loss Surgery. Today's InBody not done today. She is to see Dr. Wheatley Sunday morning to see if the cyst is still okay. She is also going to be changing jobs and this has added some added stress but at the same time excitement to her routine. Darius Holliday, DNP, MAP COMPILER, ASSISTANT PRODUCE MANAGER-C [address] [facility], [place], [address], [facility] [place] & [place] 07/04/2024 14:02:38 07/07/2024 text/html PREVIOUS (01/14/24): Ms. Vela returns to the office today for 6 month follow-up regarding history of pancreatic pseudocyst, abdominal pain, GERD, and chronic constipation. She previously had improvement in abdominal pain following EUS with Celiac plexus block last January. Today, she reports some recent recurrence of epigastric pain. This is mild overall and worse with deep palpation. She reports good appetite. She had recent CMP, TSH, iron study, ferritin, A1C, and extensive vitamin panel performed with Bariatrics 12 days ago. I have reviewed these and the results are unremarkable. She has experienced heartburn even after gastric bypass. This continues to be well managed on pantoprazole twice daily. She has increase in chest burning if she misses a dose. Her bowel habits are currently well managed with use of Ibsrela twice daily. CURRENT (07/07/24): Ms. Vela returns to the office today for 6 month follow-up. She saw Bariatrics earlier this week and had lab workup performed that showed mild iron deficiency without anemia, mildly low sodium at 135 with otherwise normal CMP, normal TSH, T4/FT4, lipid panel, A1C, and vitamin workup. Today, she complains of more acid reflux recently despite use of pantoprazole 40 mg twice daily. She previously had conversion of sleeve gastrectomy to gastric bypass due to GERD. She complains of dysphagia to solids, which is a new issue for her. Additionally, she has experienced recurrence of epigastric pain. She had similary pain in the past that was alleviated with celiac plexus blockade 02/2023. She has a known pancreatic pseudocyst that appeared stable on imaging 01/2024. Regan Curry PA-C [address] [facility], [place], [address], [facility] [place] [facility] [place] 07/07/2024 09:21:22 08/25/2024 text/html PREVIOUS (07/07/24): Ms. Vela returns to the office today for 6 month follow-up. She saw Bariatrics earlier this week and had lab workup performed that showed mild iron deficiency without anemia, mildly low sodium at 135 with otherwise normal CMP, normal TSH, T4/FT4, lipid panel, A1C, and vitamin workup. Today, she complains of more acid reflux recently despite use of pantoprazole 40 mg twice daily. She previously had conversion of sleeve gastrectomy to gastric bypass due to GERD. She complains of dysphagia to solids, which is a new issue for her. Additionally, she has experienced recurrence of epigastric pain. She had similary pain in the past that was alleviated with celiac plexus blockade 02/2023. She has a known pancreatic pseudocyst that appeared stable on imaging 01/2024. CURRENT (08/25/24): Ms. Vela presents via Audio-Video encounter today for procedure follow-up. She underwent EGD and EUS with celiac plexus block on 07/16/24. Gross endoscopic findings were unremarkable in the s/p gastri bypass patient. EUS showed interval resolution of the previously identified pancreatic pseudocyst. Gastric biopsy showed reactive gastropathy. Currently, she endorses continued epigsatric burning sensation. Voquezna was not approved. She felt that Dexlansoprazole was not well tolerated. She is back to taking Pantoprazole 40 mg in the morning and at bedtime. Otherwise, she is feeling okay currently. Audio and Video visit performed utilizing [employer] HIPAA compliant platform. Participants: Provider-Regan Curry PA-C and Patient-Saundra Vela. Patient is at home, provider is at the office. Verbal consent was obtained to engage in televideo service. I spent a total of 13 minutes during this real-time AUDIO-VIDEO clinical encounter that was initiated by the patient which started at 1140 and ended at 1153. Regan Curry PA-C [address], [place], [address], [facility] [place] [facility] [place] 08/25/2024 12:17:50 OBGyn Episode No OBEpisode recorded.
--- OUTSIDE RECORDS SUMMARY | 2024-11-28 14:03 | XMS_ITS | Encounter Summary ---
Author Organization [facility] Address [address] [place] [address] Care Team Providers Care Tensile Tester Name Role Phone José Norris MD Primary Care Provider Encounter Details Date Type Department Care Team (Latest Contact Info) Description 10/09/2024 Travel Social History Tobacco Use Types Packs/Day Years [...] PM EDT documented as of this encounter Plan of Treatment Upcoming Encounters Date Type Department Care Team (Late Contact Info) Description 04/23/2025 2:00 PM EST Office Visit [facility] [address] [place] [address] [place] [id number] José Norris MD [address] [place] [address] [place] [id number] 05/20/2025 3:30 PM EDT Office Visit [facility] [address] [facility] [place] [phone] Ana Vincent MD [address] [place] [address] 05/20/2025 3:30 PM EDT Clinical Support No Requirements [facility] [address] [place] [address] [place] [id number] documented as of this encounter Visit Diagnoses Not on filedocumented in this encounter Care Teams Tensile Tester Relationship Specialty Start Date End Date José Norris MD [address] [place] [address] PCP - General Internal Medicine 03/15/16 documented as of this encounter
--- OUTSIDE RECORDS SUMMARY | 2024-11-28 14:03 | XMS_ITS | Encounter Summary ---
Author Organization [facility] Address [address] [place] [address] Care Team Providers Care Photographic Colorist Name Role Phone José Norris MD Primary Care Provider [phone] Reason for Visit * Reason Onset Date Comments Med Refill 11/12/2024 Encounter Details Date Type Department Care Team (Late st Contact Info) Description 11/12/2024 Refill [facility] [address] [place] [address] [place] [address] José Norris MD [address] [place] [address] Social History Tobacco Use Types Packs/Day Years [...] Description 04/23/2025 2:00 PM EST Office Visit [facility] [address] [place] [address] [place] [phone] José Norris MD [address] [place] [address] [place] [address] 05/20/2025 3:30 PM EDT Office Visit [facility] [address] [place] [address] [place] [phone] Ana Vincent MD [address] [place] [address] 05/20/2025 3:30 PM EDT Clinical Support No Requirements [facility] [address] [place] [address] [place] [phone] documented as of this encounter Visit Diagnoses Not on filedocumented in this encounter Care Teams Photographic Colorist Relationship Specialty Start Date End Date José Norris MD [address] [place] [address] PCP - General Internal Medicine 03/15/16 documented as of this encounter
--- OUTSIDE RECORDS SUMMARY | 2024-11-28 14:03 | XMS_ITS | Clinical Summary ---
Author Organization [facility] Address [address] [place] [address] Care Team Providers Care Room Service Clerk Name Role Phone José Norris MD Primary Care Provider [phone] Allergies Active Allergy Reactions Criticality Noted Date Comments Nsaids Unknown - Low Severity,Hives Low 11/09/2022 Tuberculin Purified Protein Derivative GI Intolerance Low 06/13/2022 Tuberculin Tests Other (See Comments) Low 0 Positive reaction Medications Multiple Vitamin (MULTI-VITAMIN DAILY PO) Take 1 tablet by mouth Daily. Active Iron, Ferrous Sulfate, 325 (65 Fe) MG tabletIndicatio ns:Iron deficiency anemia secondary to inadequate dietary iron intake Take 1 tablet by mouth Daily. Active Vitamin D3 1.25 MG (12408 UT) capsule Take 1 capsule by mouth 1 (One) Time Per Week. 4 Active Ibsrela 50 MG tablet 4 Active cyclobenzaprine (FLEXERIL) 10 MG tabletIndicatio ns:Precordial chest pain Take 1 tablet by mouth 2 (Two) Times a Day As Needed for Muscle Spasms. 60 tablet 11 4 Active Lidocaine 4 %Indications:Pr ecordial chest pain Place 1 patch on the skin as directed by provider Daily. Remove & Discard patch within 12 hours or as directed by MD 30 each 2 4 Active pregabalin (LYRICA) 75 MG capsule Take 1 capsule by mouth Every Night. 5 Active buPROPion XL (Wellbutrin XL) 150 MG 24 hr tabletIndicatio ns:Anxiety and depression Take 1 tablet by mouth Daily. 90 tablet 1 5 Active escitalopram (Lexapro) 20 MG tabletIndicatio ns:Anxiety and depression Take 1 tablet by mouth Daily. 90 tablet 1 5 Active phentermine (Adipex-P) 37.5 MG tabletIndicatio ns:Class 1 obesity due to excess calories without serious comorbidity with body mass index (BMI) of 34.0 to 34.9 in adult Take 0.5 tablets by mouth 2 (Two) Times a Day. 30 tablet 5 Active loratadine (CLARITIN) 10 MG tablet Take 1 tablet by mouth Daily. 30 tablet 3 5 Active Semaglutide-Leonel ght Management (Wegovy) 0.25 MG/0.5ML solution auto-injectorIn dications:Class 1 obesity due to excess calories without serious comorbidity with body mass index (BMI) of 34.0 to 34.9 in adult Inject 0.5 mL under the skin into the appropriate area as directed 1 (One) Time Per Week. 2 mL 5 Active loratadine (CLARITIN) 10 MG tablet Take 1 tablet by mouth Daily. 30 tablet 3 4 025 Discontin ued(Reord er) loratadine (CLARITIN) 10 MG tablet Take 1 tablet by mouth Daily. 30 tablet 3 5 025 Discontin ued(Reord er) Active Problems Problem Noted Date Diagnosed Date Numerous moles 07/18/2024 Assessment & Plan (07/18/2024 5:03 PM EDT): Patient with numerous facial moles, which they appear to have typical appearance but one on the right cheek is large at about 3/4 to 1 cm and is very consistent with irritated. With this pattern and also with notable history of sun exposure during her adult life she would be interested in dermatology referral for evaluation of her moles and potential removal and further skin check. I will refer her in that regard. Vitamin D deficiency 04/21/2024 Assessment & Plan (04/21/2024 1:58 PM EST): Patient being vitamin D daily, in context of previous bariatric surgery we will check vitamin D 25-hydroxy level with blood work 04/21/2024, management per results. Seasonal allergic rhinitis due to pollen 024 Assessment & Plan (09/10/2024 1:00 PM EDT): seasonal pattern of allergies with typical response to Claritin as needed. We could add Flonase in future for any breakthrough symptoms. Additional benefit of saline spray, nasal flushing. Advise concerns. Assessment & Plan (04/21/2024 1:57 PM EST): seasonal pattern of allergies with typical response to Claritin as needed. We could add Flonase in future for any breakthrough symptoms. Additional benefit of saline spray, nasal flushing. Advise concerns. Assessment & Plan (09/21/2023 5:55 PM EDT): Some modest flare of allergies on and off last couple months but still doing well with use of Claritin. We could add Flonase for any breakthrough symptoms, but she does not feel there is a need. Additional benefit of saline spray, nasal flushing. Advise concerns. Assessment & Plan (08/16/2023 5:59 PM EDT): Modest component of congestion drainage flaring over the last weeks, with resumption of Claritin since visit last month and she is doing better in that regard. I discussed we could add Flonase in future for any breakthrough symptoms but she declines need. Additional benefit of saline spray, nasal flushing. Advise concerns. Encounter for general adult medical examination with abnormal findings 03/23/2023 Assessment & Plan (04/21/2024 1:55 PM EST): Last finger blood work 03/23/2023 including negative HIV and hepatitis C virus screening. Repeat blood work ordered 04/21/2024 with management per results. Vaginal swab last normal 06/20/2022 through gynecology, 3-year repeat recommended. 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 Tdap given 10/17/2017. Flu vaccine typically given yearly. Assessment & Plan (03/23/2023 11:52 AM EST): No recent screening blood work, ordered today on 03/23/2023 with managed per results. Pap smear last normal 2020 with repeat pending May [address] Grimaldo. 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 Tdap given 10/17/2017. Flu vaccine typically given yearly. Need for vaccination 03/23/2023 Mixed hyperlipidemia 03/23/2023 Assessment & Plan (04/21/2024 1:57 PM EST): 03/13/2023 Total cholesterol 173, triglycerides 55, HDL 62, LDL 100. No indication for statin therapy. As such overall improved pattern status post notable weight loss previously. Continue healthy diet, exercise and maintain healthy weight. Recheck blood work pending 04/21/2024, management per results. Assessment & Plan (06/07/2023 11:48 AM EDT): 03/13/2023 Total cholesterol 173, triglycerides 55, HDL 62, LDL 100. No indication for statin therapy. As such overall improved pattern status post notable weight loss previously. Continue healthy diet, exercise and maintain healthy weight. Monitor yearly. Gastroesophageal reflux disease without esophagi tis 03/23/2023 Assessment & Plan (04/21/2024 1:56 PM EST): Associated to symptoms of pancreatic pseudocyst and has managed through Dr. Wheatley and Pamela. Recent EUS with celiac block with benefit of some of her crampy abdominal pain that is postprandial. Follow-up 04/03/[address] Wheatley's office. Also some bloatedness for which Dr. Wheatley is recommended her to continue pantoprazole, and modest constipation pattern where she was initiated on Amitiza through Dr. Wheatley, but ultimately that was not as beneficial and she has been transition recently to Ibsrela with equivocal benefit. Subsequent was felt to have some component of irritable bowel syndrome and as of late 2019/early 2024 has been placed on Ibsrela per Dr. Wheatley with benefit of specifically bloating. Keep follow-up with Dr. Wheatley. Assessment & Plan (07/12/2023 5:26 PM EDT): Associated to symptoms of pancreatic pseudocyst and has managed through Dr. Michelle. Recent EUS with celiac block with benefit of some of her crampy abdominal pain that is postprandial. Follow-up 04/03/[address] Wheatley's office. Also some bloatedness for which Dr. Wheatley is recommended her to continue pantoprazole, and modest constipation pattern where she was initiated on Amitiza through Dr. Wheatley, but ultimately that was not as beneficial and she has been transition recently to Ibsrela with equivocal benefit. Do caution that GLP-1 class of medicine could exacerbate some GI symptoms, she will monitor closely. Keep follow-up with Dr. Wheatley. Assessment & Plan (06/07/2023 11:47 AM EDT): Associated to symptoms of pancreatic pseudocyst and has managed through Dr. Michelle. Recent EUS with celiac block with benefit of some of her crampy abdominal pain that is postprandial. Follow-up 04/03/[address] Wheatley's office. Also some bloatedness for which Dr. Wheatley is recommended her to continue pantoprazole, and modest constipation pattern which has been initiated on Amitiza through Dr. Wheatley. Keep follow-up with Dr. Parry pending appointment July 2023. Assessment & Plan (03/23/2023 11:52 AM EST): Associated to symptoms of pancreatic pseudocyst and has managed through Dr. Michelle. Recent EUS with celiac block with benefit of some of her crampy abdominal pain that is postprandial. Follow-up 04/03/[address] Wheatley's office. Also some bloatedness and possible modest constipation pattern which has been initiated on Amitiza through Dr. Wheatley. SVT (supraventricular tachycardia) 03/23/2023 Assessment & Plan (10/09/2024 12:33 PM EDT): Status post pacemaker placement by Dr. Vincent. Evaluations by Dr. Vincent previously, including non-concerning echocardiogram from 03/30/2016, including ejection fraction between 65 and 70%. She also had Holter monitor which showed SVT, status post ablation in 2017, with transient improvement in symptoms. Ultimately, with recurrent bradycardic episodes, 08/25/[address] [employer] pacemaker with a loop recorder removal secondary to bradycardia due to nonreversible symptomatic sinus node dysfunction. Regarding hypersomnia evaluation, negative for strep sleep apnea but she was previously placed Provigil for daytime fatigue/sleepiness, although no longer using. Of note, with SVT history including ablation and subsequent pacemaker placement, she notably tolerated the phentermine use in spring 2023 without any concerns. Keep follow-up with cardiology. With SVT history including ablation and subsequent pacemaker placement, she continues to have no side effects of palpitations and continues as appropriate for phentermine use, tolerated initially spring 2023 and again another round of phentermine as of July 2024. Caution any extra use of caffeine which that exacerbate. No new concerns as of 10/09/2024. Assessment & Plan (09/10/2024 1:01 PM EDT): Status post pacemaker placement by Dr. Vincent. Evaluations by Dr. Vincent previously, including non-concerning echocardiogram from 03/30/2016, including ejection fraction between 65 and 70%. She also had Holter monitor which showed SVT, status post ablation in 2017, with transient improvement in symptoms. Ultimately, with recurrent bradycardic episodes, 08/25/[address] [employer] pacemaker with a loop recorder removal secondary to bradycardia due to nonreversible symptomatic sinus node dysfunction. Regarding hypersomnia evaluation, negative for strep sleep apnea but she was previously placed Provigil for daytime fatigue/sleepiness, although no longer using. Of note, with SVT history including ablation and subsequent pacemaker placement, she notably tolerated the phentermine use in spring 2023 without any concerns. Keep follow-up with cardiology. With SVT history including ablation and subsequent pacemaker placement, she continues to have no side effects of palpitations and continues as appropriate for phentermine use, tolerated initially spring 2023 and again another round of phentermine as of July 2024. Caution any extra use of caffeine which that exacerbate. No new concerns as of 09/10/2024. Assessment & Plan (08/14/2024 11:34 AM EDT): Status post pacemaker placement by Dr. Vincent. [...] for strep sleep apnea but she was previously placed Provigil for daytime fatigue/sleepiness, although no longer using. Of note, with SVT history including ablation and subsequent pacemaker placement, she notably tolerated the phentermine use in spring 2023 without any concerns. Keep follow-up with cardiology. With SVT history including ablation and subsequent pacemaker placement, she continues to have no side effects of palpitations and continues as appropriate for phentermine use, tolerated initially spring 2023 and again another round of phentermine as of July 2024. Caution any extra use of caffeine which that exacerbate. Advise concerns. Assessment & Plan (04/21/2024 1:58 PM EST): Status post pacemaker placement by Dr. Vincent. [...] for strep sleep apnea but she was previously placed Provigil for daytime fatigue/sleepiness, although no longer using. Of note, with SVT history including ablation and subsequent pacemaker placement, she notably tolerated the phentermine use in spring 2023 without any concerns. Keep follow-up with cardiology. Assessment & Plan (10/25/2023 5:03 PM EDT): Status post pacemaker placement by Dr. Vincent. [...] for strep sleep apnea but she was previously placed Provigil for daytime fatigue/sleepiness, although no longer using. With SVT history including ablation and subsequent pacemaker placement, she continues to have no side effects of palpitations and continues as appropriate for phentermine use, initiated July 2023. Caution any extra use of caffeine which that exacerbate. Advise concerns. Assessment & Plan (09/21/2023 5:55 PM EDT): Status post pacemaker placement by Dr. Vincent. [...] for strep sleep apnea but she was previously placed Provigil for daytime fatigue/sleepiness, although no longer using. With SVT history including ablation and subsequent pacemaker placement, she is appropriate for phentermine, initiated July 2023, with no aggravation of any palpitations or cardiac symptoms of concern. Assessment & Plan (08/16/2023 6:00 PM EDT): Status post pacemaker placement by Dr. Vincent. [...] for strep sleep apnea but she was previously placed Provigil for daytime fatigue/sleepiness, although no longer using. With his SVT history including ablation and subsequent pacemaker placement, she is appropriate for phentermine, initiated July 2023, with no aggravation of any palpitations or cardiac symptoms of concern. Assessment & Plan (07/12/2023 5:25 PM EDT): Status post pacemaker placement by Dr. Vincent. [...] for strep sleep apnea but she was previously placed Provigil for daytime fatigue/sleepiness, although no longer using. With his SVT history including ablation and subsequent pacemaker placement, she would be appropriate for potential phentermine therapy, which does have some tendency of causing increased heart rate and potentially palpitations, although I would prefer GLP-1 class first, and we will monitor closely. Assessment & Plan (03/23/2023 11:49 AM EST): Status post pacemaker placement by Dr. Vincent. [...] for strep sleep apnea but she was previously placed Provigil for daytime fatigue/sleepiness, although no longer using. Clinically stable as of 11/09/[address] Vincent, with 6-month follow-up recommended. Vitamin B 12 deficiency 03/23/2023 Assessment & Plan (10/09/2024 12:33 PM EDT): Low Vitamin B 12 with previous replacement. Unsure exact previous levels but vitamin B12 level normal at 648 on 03/13/2023. No indication for changing therapy. recheck vitamin B12 level with blood work 04/21/2024 in good range at 531. Of note [...] normal range of 720. No intervention necessary. Assessment & Plan (09/10/2024 1:01 PM EDT): Low Vitamin B 12 with previous replacement. Unsure exact previous levels but vitamin B12 level normal at 648 on 03/13/2023. No indication for changing therapy. recheck vitamin B12 level with blood work 04/21/2024 in good range at 531. Of note when she had rechecked her blood counts in July 2024 with her bariatric surgeon, they noticed that her iron levels were getting lower again and her vitamin B12 is lower again, she has resumed replacement therapy, and I will recheck both today with CBC, iron, ferritin, and vitamin B12 level on 09/10/2024 with management per results. Assessment & Plan (04/21/2024 1:58 PM EST): Low Vitamin B 12 with previous replacement. Unsure exact previous levels but vitamin B12 level normal at 648 on 03/13/2023. No indication for changing therapy. recheck vitamin B12 level with blood work 04/21/2024, management per results. Assessment & Plan (06/07/2023 11:49 AM EDT): Low Vitamin B 12 with previous replacement. Unsure exact previous levels but vitamin B12 level normal at 648 on 03/13/2023. No indication for changing therapy. Advise concerns. Assessment & Plan (03/23/2023 11:54 AM EST): Low Vitamin B 12 with previous replacement. Unsure exact levels but we will check a vitamin B12 level with her blood work at this time. Management per results. Anxiety and depression 03/23/2023 Assessment & Plan (10/09/2024 12:27 PM EDT): Diagnosis in approximate 2015, for which she [...] an exacerbation of symptoms with use of phentermine. We will continue unchanged. No SI/HI. Continue to reinforce the importance of lifestyle modifications to benefit mood including pursuit of enjoyable activities, regular exercise, good communication/counseling. No new concerns as of 10/09/2024, including with the use of phentermine. Assessment & Plan (09/10/2024 12:58 PM EDT): Diagnosis in approximate 2015, for which she [...] added Wellbutrin XL 150 mg daily. She overall has good stability on the medicine, feels she handles her stressors better on this regimen, and has not seen an exacerbation of symptoms with use of phentermine. We will continue unchanged. No SI/HI. Continue to reinforce the importance of lifestyle modifications to benefit mood including pursuit of enjoyable activities, regular exercise, good communication/counseling. No new concerns as of 09/10/2024, including with the use of phentermine. Assessment & Plan (08/14/2024 12:10 PM EDT): Diagnosis in approximate 2015, for which she [...] added Wellbutrin XL 150 mg daily. She overall has good stability on the medicine, feels she handles her stressors better on this regimen, and has not seen an exacerbation of symptoms with use of phentermine. We will continue unchanged. No SI/HI. Continue to reinforce the importance of lifestyle modifications to benefit mood including pursuit of enjoyable activities, regular exercise, good communication/counseling. Advise concerns. Assessment & Plan (07/09/2024 12:51 PM EDT): Diagnosis in approximate 2015, for which she [...] added Wellbutrin XL 150 mg daily. She has seen good benefit, feels she is handling stressors better at this time and would like to continue unchanged as of 07/09/2024. No SI/HI. Continue to reinforce the importance of lifestyle modifications to benefit mood including pursuit of enjoyable activities, regular exercise, good communication/counseling. Advise concerns. Assessment & Plan (04/21/2024 1:53 PM EST): Diagnosis in approximate 2015, for which she [...] it. 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 No SI/HI. Continue to reinforce the importance of lifestyle modifications to benefit mood including pursuit of enjoyable activities, regular exercise, good communication/counseling. with medication change follow-up in 2 months time to reassess, sooner as needed. Assessment & Plan (10/25/2023 5:01 PM EDT): Diagnosis in approximate 2015, for which she had benefit on fluoxetine. Some breakthrough anxiety more so than depressive symptoms as of visit 03/23/2023 with initiation and good response to initiation of Lexapro 10 mg tablet daily, buspirone 7.5 mg twice daily, with no side effects including no headache, mental fogginess, stomach upset. Ongoing use of phentermine which can exacerbate anxiety but she feels she is done well in this regard. No SI/HI. As such, she continues to be appropriate candidate for phentermine. Continue to reinforce the importance of lifestyle modifications to benefit mood including pursuit of enjoyable activities, regular exercise, good communication/counseling. Reassess at follow-up visits. Assessment & Plan (09/21/2023 5:54 PM EDT): Diagnosis in 2015, for which she had benefit on fluoxetine. Some breakthrough anxiety more so than depressive symptoms as of visit 03/23/2023 with initiation and good response to initiation of Lexapro 10 mg tablet daily, buspirone 7.5 mg twice daily, with no side effects including no headache, mental fogginess, stomach upset. With use of phentermine, caution potential anxiety exacerbation, but she has done well and feels her mood has overall good stability. No SI/HI. As such we can continue phentermine unchanged. I continue to reinforce the importance of lifestyle modifications to benefit mood including pursuit of enjoyable activities, regular exercise, good communication/counseling. Reassess at follow-up visits. Assessment & Plan (08/16/2023 5:57 PM EDT): Diagnosis in 2015, for which she had benefit on fluoxetine. Some breakthrough anxiety more so than depressive symptoms as of visit 03/23/2023 with initiation and good response to initiation of Lexapro 10 mg tablet daily, buspirone 7.5 mg twice daily, with no side effects including no headache, mental fogginess, stomach upset. With use of phentermine, caution potential anxiety exacerbation but she is doing well in that regard, such we will continue regimen unchanged. I continue to reinforce the importance of lifestyle modifications to benefit mood including pursuit of enjoyable activities, regular exercise, good communication/counseling. Reassess at follow-up visits. Assessment & Plan (07/12/2023 5:21 PM EDT): Diagnosis in 2015, for which she had benefit on fluoxetine. Some breakthrough anxiety more so than depressive symptoms as of visit 03/23/2023 with initiation and good response to initiation of Lexapro 10 mg tablet daily, buspirone 7.5 mg twice daily, with no side effects including no headache, mental fogginess, stomach upset. Some waxing waning of stressors since that time with some increased stress eating, could have attributed to some increasing weight pattern, but she is doing better overall at this time. Continue regimen unchanged. I continue to reinforce the importance of lifestyle modifications to benefit mood including pursuit of enjoyable activities, regular exercise, good communication/counseling. Reassess at follow-up visits. Assessment & Plan (06/07/2023 11:46 AM EDT): Diagnosis in approximate 2015, for which she had benefit on fluoxetine transitionally although does not feel that in retrospect it helped as much as she would want. Some breakthrough anxiety more so than depressive symptoms as of visit 03/23/2023 without SI/HI, in large part due to notable workload, responsibilities of motherhood, pursuing schooling, etc. good response to initiation of Lexapro 10 mg tablet daily, buspirone 7.5 mg twice daily, with no side effects including no headache, mental fogginess, stomach upset. Continue medication unchanged. I continue to reinforce the importance of lifestyle modifications to benefit mood including pursuit of enjoyable activities, regular exercise, good communication/counseling. Reassess at 6-month follow-up, sooner as needed. Assessment & Plan (03/23/2023 11:50 AM EST): History of same diagnosis in approximate 2015, for which she had benefit on fluoxetine transitionally although does not feel that in retrospect it helped as much as she would want. Some breakthrough anxiety more so than depressive symptoms as of visit today 03/23/2023, in large part due to notable workload, responsibilities of motherhood, pursuing schooling, etc. No SI/HI but notable breakthrough symptoms. She would be interested in medication, initiate Lexapro 10 mg tablet daily, buspirone 7.5 mg twice daily, caution headache, mental fogginess, stomach upset. Reinforced importance of lifestyle modifications to benefit mood including pursuit of enjoyable activities, regular exercise, good communication/counseling. Reassess at 2-month follow-up visit, sooner as needed. Dizziness 05/24/2022 Assessment & Plan (05/24/2022 4:58 PM EDT): Much better now. Occasional orthostasis but otherwise doing well. Pre-operative cardiovascular examination 023 Assessment & Plan (05/24/2022 4:58 PM EDT): Having hysterectomy soon. We will send preop restratification to her surgeon. Low risk. Pacemaker 04/26/2022 Assessment & Plan (05/22/2024 5:40 PM EDT): Assessment & Plan (05/17/2023 3:15 PM EDT): Device interrogation today shows good battery life and lead function, no events noted. She reports that she has lost a significant amount of weight and has noticed that her pacemaker has moved under her skin and sometimes causes discomfort. Dr George evaluated site and discussed options, including surgery to reposition the pacemaker. Patient would like to hold off at this time. She will let us know if symptoms worsen. Assessment & Plan (05/24/2022 5:07 PM EDT): Good battery life and lead function. Pain at site is likely muscular irritation. Recommend heat. Because of her bariatric surgery history she cannot take steroids or NSAIDs. We will send in Ultram. Assessment & Plan (04/26/2022 1:15 PM EST): Pacemaker check downloaded and interrogated in clinic today. No major episodes seen on download. Patient complaining of palpitations alternating with bradycardic episodes. Wanted pacemaker rep to increase base rate to 65 unfortunately he had already left. Offered patient reassurance that her heart rate cannot go below 60 since that is what her rate on pacemaker set to. She feels 60 is too low for her. Today's device interrogation shows patient has 8.9 years left on battery. Palpitations 04/26/2022 Assessment & Plan (05/22/2024 5:40 PM EDT): Assessment & Plan (05/17/2023 3:13 PM EDT): Currently stable and controlled. Assessment & Plan (05/24/2022 4:57 PM EDT): She got dizzy on metoprolol and did not tolerate it. Stopped it after she and I discussed at the hospital 1 day. Doing better off of it. Assessment & Plan (04/26/2022 1:10 PM EST): No obvious cause seen on pacemaker interrogation today. We will start patient on a low-dose metoprolol to see if that helps since she is having palpitations that she reports are troublesome to her but has pacemaker in place so we cannot drop her heart rate below 60 with beta-debbie. Acute non-recurrent pansinusitis 04/19/2022 Assessment & Plan (04/19/2022 10:59 AM EST): Issues with sinus pain, congestion and tenderness initially beginning a few weeks ago. She reports improvement over the week last week, however approximately 3 days ago her symptoms return and more worse than prior and has now developed a dry cough.. No documented fever, she has not utilized any [id number] medications for her symptoms. Negative for flu, COVID and strep in office today. -We will treat for acute pansinusitis with Augmentin as directed -She is only able to take Tylenol due to history of gastric bypass procedure. -Advised saline nasal spray as directed -Can return to work tomorrow Iron deficiency anemia 03/28/2022 Assessment & Plan (10/09/2024 12:32 PM EDT): Most recent blood counts 04/21/2024 with hemoglobin 14.8, hematocrit 45.1 and MCV 93 with iron normal at 112 and ferritin normal at 28. Previous hemoglobin 14, hematocrit 40.6, MCV 91, previous hemoglobin hematocrit of 13.6/41.5 on 03/22/2022, 10.7 and 33.7 on 03/25/2022 respectively. Also good urine, ferritin and B12 level with 03/13/2023 blood work [...] and they are all in good range Assessment & Plan (09/10/2024 1:00 PM EDT): Most recent blood counts 04/21/2024 with hemoglobin 14.8, hematocrit 45.1 and MCV 93 with iron normal at 112 and ferritin normal at 28. Previous hemoglobin 14, hematocrit 40.6, MCV 91, previous hemoglobin hematocrit of 13.6/41.5 on 03/22/2022, 10.7 and 33.7 on 03/25/2022 respectively. Also good urine, ferritin and B12 level with 03/13/2023 blood work [...] iron, ferritin, and vitamin B12 level on 09/10/2024 with management per results. Assessment & Plan (07/09/2024 12:55 PM EDT): Most recent blood counts 04/21/2024 with hemoglobin 14.8, hematocrit 45.1 and MCV 93 with iron normal at 112 and ferritin normal at 28. Previous hemoglobin 14, hematocrit 40.6, MCV 91, previous hemoglobin hematocrit of 13.6/41.5 on 03/22/2022, 10.7 and 33.7 on 03/25/2022 respectively. Also good urine, ferritin and B12 level with 03/13/2023 blood work generally, she continues on iron tablet coadministered with vitamin C daily. Monitor blood counts periodic. Assessment & Plan (04/21/2024 1:56 PM EST): Most recent blood counts with 03/13/2023 hemoglobin 14, hematocrit 40.6, MCV 91, previous hemoglobin hematocrit of 13.6/41.5 on 03/22/2022, 10.7 and 33.7 on 03/25/2022 respectively. Also good urine, ferritin and B12 level with 03/13/2023 blood work generally, she continues on iron tablet coadministered with vitamin C daily. Recheck blood work with today on 04/21/2023, management per results. Assessment & Plan (06/07/2023 11:47 AM EDT): Most recent blood counts with 03/13/2023 hemoglobin 14, hematocrit 40.6, MCV 91, previous hemoglobin hematocrit of 13.6/41.5 on 03/22/2022, 10.7 and 33.7 on 03/25/2022 respectively. Also good urine, ferritin and B12 level with 03/13/2023 blood work generally, she continues on iron tablet coadministered with vitamin C daily. Continue unchanged. Assessment & Plan (03/23/2023 11:53 AM EST): Blood counts went from hemoglobin hematocrit of 13.6/41.5 on 03/22/2022, 10.7 and 33.7 on 03/25/2022 respectively. With screening blood work I will obtain CBC with additional iron, ferritin and B12 level. Generally, she continues on iron tablet coadministered with vitamin C daily although she admits its been a little harder to take regular with her recent gastrointestinal complaints. Assessment & Plan (03/28/2022 10:07 AM EST): Blood counts went from hemoglobin hematocrit of 13.6/41.5 on 2022-10.7 and 33.7 on 03/25/2022 respectively. I will check a CBC with differential to ensure stability. She continues on iron tablet coadministered with vitamin C daily although she admits its been a little harder to take regular with her recent gastrointestinal complaints. Acute pancreatitis 03/28/2022 Assessment & Plan (03/28/2022 10:05 AM EST): Postprocedural acute pancreatitis from 03/20/2022 endoscopic ultrasound of the pancreas, where she had drainage of pseudocyst by Dr. Sheldon Wheatley. She had onset of pain, increasing with increased lipase greater than 4000 when admitted 03/23/2022 to [facility]. Also found to have a secondary cholangitis pattern for which she has been treated with Cipro and Flagyl and is clinically doing better. She is on the path to recovery, although I have cautioned still transition of dietary intake, encourage good fluid hydration and this will likely take continued improvement over the next couple weeks to see full benefit. She notably has follow-up with Dr. Wheatley on 04/13/2022 Pancreatic pseudocyst 03/28/2022 Assessment & Plan (04/21/2024 1:57 PM EST): Status post evaluation and drainage through ultrasound by Dr. Wheatley 03/20/2022, with decreased size. Ongoing follow-up through Dr. Wheatley with plan to monitor with CT imaging, Last reassuring on 01/14/2024 with plan to repeat again July 2024 at follow-up Assessment & Plan (03/23/2023 11:53 AM EST): Status post evaluation and drainage through ultrasound by Dr. Wheatley 03/20/2022, with decreased size. Ongoing follow-up through Dr. Wheatley with plan to monitor with CT imaging. Assessment & Plan (03/28/2022 10:06 AM EST): Status post evaluation and drainage through ultrasound by Dr. Wheatley 03/20/2022, with decreased size. He clinically we will follow her up 04/13/2022 with further evaluations as necessary. Hyponatremia 03/28/2022 Assessment & Plan (09/10/2024 12:59 PM EDT): Discussed at visit 07/09/2024 patient reports that her sodium level was 1 point lower than the normal range when checked through bariatric center in early July 2024, I have been unable to receive the result but ultimately obtained BMP on 08/14/2024 which was notable for normal sodium 141. Of note, she had a history of lower sodium of 132 in March 2022 which normalized without treatment. No further concerns. Assessment & Plan (08/14/2024 12:12 PM EDT): Discussed initially at visit 07/09/2024 patient reports that her sodium level was 1 point lower than the normal range when checked through bariatric center in early July 2024, I have been unable to receive the result but we will nonetheless go ahead and recheck a BMP today 08/14/2024 to ensure no concerns or any progression in that regard. Of note, she had a history of lower sodium of 132 in March 2022 which normalized without treatment. Assessment & Plan (07/09/2024 12:55 PM EDT): As a visit 07/09/2024 patient reports that her sodium level was 1 point lower than the normal range when checked through bariatric center in early July 2024, I do not have that result at this time. Nonetheless we can recheck a BMP when she follows up in a month to ensure stability or normalization. She had a history of lower sodium of 132 in March 2022 which normalized without treatment. Assessment & Plan (03/28/2022 10:06 AM EST): She appeared to have a more normal sodium through the entire hospitalization until the last day or her sodium was 132, I would like to recheck a CMP to assess her liver enzymes and her sodium to ensure good stability. Left ovarian cyst 02/06/2022 Assessment & Plan (02/06/2022 5:31 PM EST): Noted on summer [address] Grimaldo, her hardness tester, with a one-point sign centimeter cyst noted. Unsure how much this may relate to her abdominal complaints, but at this time she does not feel that she is satisfactory receiving answers and I think it is very reasonable to obtain another opinion on the matter. Left lower quadrant abdominal pain 02/06/2022 Assessment & Plan (02/06/2022 5:30 PM EST): On exam, a reproducible left abdominal pain, with pressure apparently also helping to relieve some of her intercourse related pain, which to me reinforces some of the more anatomic and not as much hormone related trigger to this pattern. I do suspect this could be related to her ovarian cyst, but also appears connected to the process of her dyspareunia. Good bowel pattern, urinary pattern nonconcerning. I feel this is more gynecologic related, with referral pending. Dysuria 02/06/2022 Assessment & Plan (02/06/2022 5:29 PM EST): Some intermittent pattern of urinary changes which is not consistent, nonetheless in context of her other complaints she was concerned for possible UTI. Urinalysis is clear, no specific treatment necessary further. Encourage good hydration, reinforced good urinary hygiene. Dyspareunia in female 02/06/2022 Assessment & Plan (02/06/2022 5:29 PM EST): Ongoing, slowly progressing pattern for years, seeming to intensify status post a delivery of her most recent child. Investigations by current hardness tester, Dr. Grimaldo reveal late summer 2021 transvaginal ultrasound revealing left sided ovarian cyst 1.9 cm but otherwise no abnormality. By report this is been felt to be more hormonal related and attempts at IUD was not beneficial, and more recently early January 2022 tubal ligation has not seen benefit. Notable pain with penetrative intercourse, not with external activity. Overall I feel this most likely is a physical process, possibly secondary to adhesions in an individual with multiple previous surgeries, or possibly could be related to ovarian cyst. Patient would like a second opinion and I will refer her to gynecology to pursue. Class 2 obesity due to exces s calories without serious comorbidity with body mass index (BMI) of 35.0 to 35.9 in adult 02/06/2022 Assessment & Plan (10/09/2024 12:33 PM EDT): BMI in the mid 30s range, long-standing difficulty with her weight, status post bariatric surgery in [place] April 2017 with resultant 90 pound weight [...] over the last 6 to 9 months, partly related to some slack in diet but she [...] with her next physical in 7 months. Assessment & Plan (09/10/2024 12:59 PM EDT): BMI in the mid 30s range, long-standing difficulty with her weight, status post bariatric surgery in [place] April 2017 with resultant 90 pound weight [...] over the last 6 to 9 months, partly related to some slack in diet but she [...] the morning half tablet midday, now completing second month of therapy with more modest weight loss of 2 pounds but she still feels overall she is seeing benefit would like to continue. As such phentermine 37.5 mg prescribed again at half tablet prior to breakfast and lunch, number 30 tablets with plan to follow-up in 1 month's time to complete either 3 or maybe up to 4 months of therapy. Reinforced importance of ongoing improvement in diet activity level and pursuit of weight loss. Follow-up 1 month to reassess, sooner as needed with her phentermine use. Assessment & Plan (08/14/2024 12:11 PM EDT): BMI in the mid 30s range, long-standing difficulty with her weight, status post bariatric surgery in [place] April 2017 with resultant 90 pound weight [...] over the last 6 to 9 months, partly related to some slack in diet but she [...] half tablet in the morning half tablet midday with potential use up to 3 months of therapy. After 1 month she has had 5 pound weight loss but does feel that she has done even a little bit better in that regard but sees benefit of the medicine helping suppress portions and snacking most notably. We will continue with another month of phentermine 37.5 mg and half tablet in the morning and half tablet midday, number 30 tablets. Use up to 3 maybe 4 months of treatment depending how she responds. Reinforced importance of ongoing improvement in diet activity level and pursuit of weight loss. Follow-up 1 month to reassess, sooner as needed with her phentermine use. Assessment & Plan (07/09/2024 12:54 PM EDT): BMI in the low 30s range, long-standing difficulty with her weight, status post bariatric surgery in [place] April 2017 with resultant 90 pound weight loss and some variable weight since that time is currently doing quite well with her weight in the 160 pounds range. Of note, due to reflux breakthrough, and what appears to be lost functionality of the gastric sleeve, status post gastric bypass revision after the initial bariatric surgery, with resultant further weight loss. She has had some gradually increasing weight of about 15 pounds over the last 6 to 9 months, partly related to some slack in diet but she is having trouble improving again. She has had modest 12 pound weight gain over the last 78 months but is having trouble losing weight. She would be potentially interested in GLP-1 class of medicine weight loss but not covered by insurance. Previous use of phentermine most recently as of summer 2023 did give benefit, she tolerated. Of note, while she does have history of SVT with pacemaker, she has had ablation and as such is appropriate for phentermine, as the GLP-1 class was not covered. Patient like to try another course of phentermine and we will initiate again today 07/09/2024, phentermine 37.5 mg half tablet in the morning half tablet midday with potential use up to 3 months of therapy. Reinforced importance of ongoing improvement in diet activity level and pursuit of weight loss. Follow-up 1 month to reassess, sooner as needed with initiation of phentermine Assessment & Plan (04/21/2024 1:54 PM EST): BMI in the low 30s range, long-standing difficulty with her weight, status post bariatric surgery in [place] April 2017 with resultant 90 pound weight loss and some variable weight since that time is currently doing quite well with her weight in the 160 pounds range. Of note, due to reflux breakthrough, and what appears to be lost functionality of the gastric sleeve, status post gastric bypass revision after the initial bariatric surgery, with resultant further weight loss. She has had some gradually increasing weight of about 15 pounds over the last 6 to 9 months, partly related to some slack in diet but she is having trouble improving again. She would be interested in medicine we discussed GLP-1 class and phentermine therapy. As of 07/12/2023 visit, attempt to initiate GLP-1 class of medicine, although not covered by insurance. I do still think the patient would be a very good candidate for GLP-1 class of medicine if it were covered. I did not initiate a multiple month trial of phentermine as of July 2023 which had some modest benefit but ultimately she has had some gradual creep back in her weight since then. Reinforced importance of ongoing improvement in diet activity level and pursuit of weight loss. Advise concerns. Assessment & Plan (10/25/2023 5:02 PM EDT): BMI in the low 30s range, long-standing difficulty with her weight, status post bariatric surgery in [place] April 2017 with resultant 90 pound weight loss and some variable weight since that time is currently doing quite well with her weight in the 160 pounds range. Of note, due to reflux breakthrough, and what appears to be lost functionality of the gastric sleeve, status post gastric bypass revision after the initial bariatric surgery, with resultant further weight loss. She has had some gradually increasing weight of about 15 pounds over the last 6 to 9 months, partly related to some slack in diet but she is having trouble improving again. She would be interested in medicine we discussed GLP-1 class and phentermine therapy. As of 07/12/2023 visit, attempt to initiate GLP-1 class of medicine, although not covered by insurance. I do still think the patient would be a very good candidate for GLP-1 class of medicine if it were covered. As such we have initiated phentermine 37.5 mg half tablet twice daily as of early July 2023, now complaining of third month of therapy but despite some stressors in the last month, she has not lost as much weight but still feels it gives benefit, as such I think of a reasonable to do 1/4- month of phentermine. Prescription for fourth and final month of phentermine 37.5 mg half tablet twice daily prescribed today 10/25/2023, number 30 tablets. While she does have history of SVT with pacemaker, she has had ablation and as such is appropriate for phentermine, as the GLP-1 class was not covered. Reinforced importance of ongoing improvement in diet activity level and pursuit of weight loss. As this will be a final month of therapy, plan to follow-up in 5 months with her complete physical, sooner as needed. Assessment & Plan (09/21/2023 5:54 PM EDT): BMI in the low 30s range, long-standing difficulty with her weight, [place] 90 pound weight loss and some variable weight since that time is currently doing quite well with her weight in the 160 pounds range. Of note, due to reflux breakthrough, and what appears to be lost functionality of the gastric sleeve, status post gastric bypass revision after the initial bariatric surgery, with resultant further weight loss. She has had some gradually increasing weight of about 15 pounds over the last 6 to 9 months, partly related to some slack in diet but she is having trouble improving again. She would be interested in medicine we discussed GLP-1 class and phentermine therapy. As of 07/12/2023 visit, attempt to initiate GLP-1 class of medicine, although not covered by insurance. I do still think the patient would be a very good candidate for GLP-1 class of medicine if it were covered. As such we have initiated phentermine 37.5 mg half tablet twice daily as of early July 2023, now after second month of therapy she has had stagnation of weight in the last month but she still feels it gives efficacy. As such she would like to give another month of medication, such phentermine 37.5 mg half tablet twice daily prescribed today 09/21/2023, number 30 tablets. While she does have history of SVT with pacemaker, she has had ablation and as such is appropriate for phentermine, as the GLP-1 class was not covered. Reinforced importance of ongoing improvement in diet activity level and pursuit of weight loss. Reassess at 1 month follow-up visit. Assessment & Plan (08/16/2023 5:58 PM EDT): BMI in the low 30s range, long-standing difficulty with her weight, status post bariatric surgery in [place] April 2017 with resultant 90 pound weight loss and some variable weight since that time is currently doing quite well with her weight in the 160 pounds range. Of note, due to reflux breakthrough, and what appears to be lost functionality of the gastric sleeve, status post gastric bypass revision after the initial bariatric surgery, with resultant further weight loss. She has had some gradually increasing weight of about 15 pounds over the last 6 to 9 months, partly related to some slack in diet but she is having trouble improving again. She would be interested in medicine we discussed GLP-1 class and phentermine therapy. As of 07/12/2023 visit, attempt to initiate GLP-1 class of medicine, although not covered by insurance. As such we have initiated phentermine 37.5 mg half tablet twice daily as of early July 2023 and she has seen benefit with 9 pound weight loss, good efficacy with control of appetite, portion control and she is eating better and being more active. We will continue unchanged with initiation of second month of therapy today 08/16/2023. While she does have history of SVT with pacemaker, she has had ablation and as such is appropriate for phentermine, as the GLP-1 class was not covered. Reinforced importance of ongoing improvement in diet activity level and pursuit of weight loss. Assessment & Plan (07/12/2023 5:23 PM EDT): BMI in the low 30s range, long-standing difficulty with her weight, status post bariatric surgery in [place] April 2017 with resultant 90 pound weight loss and some variable weight since that time is currently doing quite well with her weight in the 160 pounds range. Of note, due to reflux breakthrough, and what appears to be lost functionality of the gastric sleeve, status post gastric bypass revision after the initial bariatric surgery, with resultant further weight loss. She has had some gradually increasing weight of about 15 pounds over the last 6 to 9 months, partly related to some slack in diet but she is having trouble improving again. She would be interested in medicine we discussed GLP-1 class and phentermine therapy. We will initiate GLP-1 class of medicine, though caution stomach side effects which could be notable in context that she already has some stomach sensitivity. Cost may be limiting also, and if not covered we discussed the appropriateness of phentermine. While she does have history of SVT with pacemaker, she has had ablation and while I would prefer the GLP-1 class first, we could consider pursuit of phentermine therapy if not covered, although if initiated she will have to follow-up monthly for trial of 3 to 4 months of medicine. Reinforced importance of ongoing improvement in diet activity level and pursuit of weight loss. Assessment & Plan (06/07/2023 11:46 AM EDT): BMI in the low 30s range, long-standing difficulty with her weight, [place] 90 pound weight loss and some variable weight since that time is currently doing quite well with her weight in the 160 pounds range. Of note, due to reflux breakthrough, and what appears to be lost functionality of the gastric sleep, status post gastric bypass revision after the initial bariatric surgery, with resultant further weight loss. Reinforced importance of ongoing healthy diet, activity level and maintenance of her weight pattern. Assessment & Plan (03/23/2023 11:51 AM EST): BMI in the low 30s range, long-standing difficulty with her weight, [place] 90 pound weight loss and some variable weight since that time is currently doing quite well with her weight in the 160 pounds range. Of note, due to reflux breakthrough, and what appears to be lost functionality of the gastric sleep, status post gastric bypass revision after the initial bariatric surgery, with resultant further weight loss. Reinforced importance of ongoing healthy diet, activity level and maintenance of her weight pattern. Assessment & Plan (02/06/2022 5:32 PM EST): BMI in the mid 30s range, long-standing difficulty with her weight, status post bariatric surgery in April 2017 with resultant 90 pound weight loss although she has gained back to 206 pounds subsequently which still represents about 40 pounds less than her peak weight. Due to reflux breakthrough, and what appears to be lost functionality of the gastric sleep, status post gastric bypass revision, with resultant further weight loss. Reinforced importance of ongoing healthy diet, activity level and maintenance of her weight pattern Sinus node dysfunction 08/19/2019 Overview (08/19/2019): Added automatically from request for surgery [id number] Encounters Date Type Department Care Team Description 11/21/2024 Telephone [facility] [address] [place] [address] José Norris MD Med Refill 11/13/2024 Refill [facility] [address] [place] [address] José Norris MD 11/12/2024 Refill [facility] [address] [place] [address] José Norris MD 10/09/2024 11:45 AM EDT Office Visit [address] [place] [address] José Norris MD Class 1 obesity due to excess calories without serious comorbidity with body mass index (BMI) of 34.0 to 34.9 in adult (Primary Dx); Iron deficiency anemia secondary to inadequate dietary iron intake; SVT (supraventricular tachycardia); Vitamin B 12 deficiency; Anxiety and depression 10/09/2024 Travel 09/11/2024 Results Follow-Up [address] [place] [address] José Norris MD 09/10/2024 12:00 PM EDT Office Visit [facility] [address] [place] [address] José Norris MD Class 2 obesity due to excess calories without serious comorbidity with body mass index (BMI) of 35.0 to 35.9 in adult (Primary Dx); Anxiety and depression; SVT (supraventricular tachycardia); Hyponatremia; Iron deficiency anemia secondary to inadequate dietary iron intake; Vitamin B 12 deficiency 09/10/2024 Travel 09/02/2024 Refill [facility] [address] [place] [address] José Norris MD Class 2 obesity due to excess calories without serious comorbidity with body mass index (BMI) of 35.0 to 35.9 in adult from Last 3 Months Immunizations Immunization Administration Dates Next Due DTaP, Unspecified 12/19/1993, 4,09/03/1992,06/23/1991, 1989 Hep B, Unspecified 04/26/2001,09/18/2000, 001 Hepatitis A 08/28/2018,01/07/2018 Hepatitis B Adult/Adolescent IM 10/25/2012,01/18,09/18/2000,08/20/2000 HiB 06/23/1991 IPV 12/19/1993,09/03/1992,06/23/1991 ,1989 Influenza Seasonal Injectable 03/02/2011, 010 Influenza, Unspecified 12/11/2022,11/18/2019,,12/20/2017 MMR 08/20/2000,06/23/1991 Td, Not Adsorbed 10/13/2003 Tdap 10/17/2017 Family History Medical History Relation Name Comments Esophageal cancer Brother 1 COPD Father COPD Maternal Grandfather Diabetes Maternal Grandmother Heart disease Maternal Grandmother Hypertension Maternal Grandmother Sleep apnea Maternal Grandmother Hyperthyroidism Mother Thyroid disease Mother Diabetes Other Heart disease Other Stomach cancer Other Heart failure Paternal Grandmother Relation Name Status Comments Brother 1 Alive Brother 2 Alive Brother 3 Alive Brother 4 Alive Father Alive Maternal Grandfather Alive Maternal Grandmother (Age 65) Mother Alive Other Paternal Grandmother (Age 62) Sister 1 Alive Sister 2 Alive Sister 3 Alive Sister 4 Alive Social History Tobacco Use Types Packs/Day Years Used Date Smoking Tobacco: Former Cigarettes 0.3 1 2 007 - 2007 Passive Smoke Exposure: Never Smokeless Tobacco: Never Tobacco Cessation:Counseling Given: No Comments:12 years ago Alcohol Use Standard Drinks/Week [...] Orientation Straight 05/17/2024 10 :37 PM EDT Last Filed Vital Signs Vital Sign Reading [...] Mass Index 34.41 10/09/2024 11:54 AM EDT Plan of Treatment Upcoming Encounters Date Type Department Care Team (Late st Contact Info) Description 04/23/2025 2:00 PM EST Office Visit [facility] [address] [place] [address] [place] [phone] José Norris MD [address] [place] [address] [place] [address] 05/20/2025 3:30 PM EDT Office Visit [facility] [address] [place] [address] Ana Vincent MD [address] [place] [address] 05/20/2025 3:30 PM EDT Clinical Support No Requirements [facility] [address] [place] [address] Health Maintenance Due Date Last Done Comments Annual Gynecologic Pelvic and Breast Exam 06/22/2023 06/20/2022 INFLUENZA VACCINE 10/03/2024 12/11/2022, , 11/20/2018, Additional history exists ANNUAL PHYSICAL 04/21/2025 04/21/2024, 03/23/2023 LIPID PANEL 04/21/2025 04/21/2024, 03/23/2023 TDAP/TD VACCINES (3 - Td or Tdap) 10/18/2027 10/17/2017, 10/13/2003 HEPATITIS C SCREENING Completed 03/23/2023 Pneumococcal Vaccine 0-49 Aged Out No longer eligible based on patient's age to complete this topic Medical Devices Implanted Type Area Manager Imaging Device Identifier Shelf Expiration Date Model / Serial / Lot Paragard Iud-04/14/2019 Implanted:04/05 (Quantity not on file) Implant Ld Pm Tendril Sts 6f46cm [id number] - [id number] - [id number] Implanted:Qty: 1 on 08/25/2019 by Ariel Olvera MD at [facility] Lead [employer] [id number] / [id number] / Loop Recorder-2018 Implanted:09/02 by Ana Vincent MD (Quantity not on file) Pacemaker MEDTRONIC / [id number] / Description:[id number] Reveal Yasmine q Gen Pm Assurity Mri Sr Rf Merlinpk - [id number] - [id number] Implanted:Qty: 1 on 08/25/2019 by Ariel Olvera MD at [facility] Pacemaker [employer] [id number] / [id number] / Procedures Procedure Name Priority Date/Time Associated Diagnosis Comments REMOTE DEVICE CHECK 09/30/2024 4 :00 AM EDT CBC AND DIFFERENTIAL Routine 09/10/2024 12:18 PM EDT Iron deficiency anemia secondary to inadequate dietary iron intake FERRITIN Routine 09/10/2024 12:18 PM EDT Iron deficiency anemia secondary to inadequate dietary iron intake IRON Routine 09/10/2024 12:18 PM EDT Iron deficiency anemia secondary to inadequate dietary iron intake VITAMIN B12 Routine 09/10/2024 12:18 PM EDT Vitamin B 12 deficiency LIPID PANEL Routine 04/21/2024 1:42 PM EST Encounter for general adult medical examination with abnormal findings HEPATITIS C ANTIBODY Routine 03/23/2023 11:37 AM EST Encounter for general adult medical examination with abnormal findings from Last 3 Months or Most Recently Relevant to Health Maintenance Results * Remote Device Check (09/30/2024 4:00 AM EDT) Date Time Interrogation Session [id number] [facility] Type Interrogation Session Remote Scheduled [facility] [employer] [facility] Implantable Pulse Generator Manager Imaging [employer] [facility] Implantable Pulse Generator Type IPG [facility] [employer] [facility] Implantable Pulse Generator Model 1272 Assurity MRI(TM) [facility] Implantable Pulse Generator Serial Number [id number] [facility] Implantable Pulse Generator Implant Date [id number] [facility] Battery Remaining Percentage 63.00 % [facility] [employer] [facility] Battery Remaining Longevity 79.0 mo [facility] [employer] [facility] Battery Voltage [address] [facility] [employer] [facility] Battery PUTAWAY DRIVER Trigger 2.600 [facility] [employer] [facility] Battery Status Middle of Service [facility] Emile Statistic RA Percent Paced 46.00 [facility] [employer] [facility] Atrial Tachy Statistic AT/AF [place] Percent 1.00 [facility] [employer] [facility] Lead Channel RA Sensing Intrinsic Amplitude 5.000 [facility] [employer] [facility] Lead Channel Setting RA Sensing Sensitivity 0.50 [facility] [employer] [facility] Lead Channel RA Impedance Value 410 [facility] [employer] [facility] Lead Channel RA Pacing Threshold Amplitude 0.500 [facility] [employer] [facility] Lead Channel RA Pacing Threshold Pulse Width 0.5 [facility] [employer] [facility] Lead Channel RA Measurements Date and Time [id number] [facility] [employer] [facility] Lead Channel Setting RA Pacing Amplitude 1.500 [facility] [employer] [facility] Lead Channel Setting RA Pacing Pulse Width 0.5 [facility] [employer] [facility] Emile Setting Mode (NBG Code) AAIR [facility] [employer] [facility] Emile Setting Lower Rate Limit 70 [facility] [employer] [facility] Emile Setting AT Mode Switch Rate 180 [facility] [employer] [facility] Emile Setting Maximum Sensor Rate 130 [facility] [employer] [facility] Lead Channel Setting RV Sensing Polarity Bipolar [facility] [employer] [facility] Lead Channel Setting RV Pacing Polarity Bipolar [facility] [employer] [facility] Lead Channel RA Pacing Threshold Polarity Bipolar [facility] [employer] [facility] 09/30/2024 4:00 AM EDT us Ana Vincent MD CV IMPLANTABLE CARDIAC DEVIC E Final Result [facility] * (ABNORMAL) CBC & Differential (09/10/2024 12:18 PM EDT) WBC 5.9 3.4 - 10.8 x10E3/uL [facility] RBC 4.69 3.77 - 5.28 x10E6/uL [facility] Hemoglobin 14.2 11.1 - 15.9 g/dL [facility] Hematocrit 45.2 34.0 - 46.6 % [facility] MCV 96 79 - 97 fL [facility] MCH 30.3 26.6 - 33.0 pg [facility] MCHC 31.4(L) 31.5 - 35.7 g/dL [facility] RDW 12.2 11.7 - 15.4 % [facility] Platelets 277 150 - 450 x10E3/uL [facility] Neutrophil Rel % 75 Not Estab. % [facility] Lymphocyte Rel % 18 Not Estab. % [facility] Monocyte Rel % 4 Not Estab. % [facility] Eosinophil Rel % 2 Not Estab. % [facility] Basophil Rel % 1 Not Estab. % [facility] Neutrophils Absolute 4.4 1.4 - 7.0 x10E3/uL [facility] Lymphocytes Absolute 1.0 0.7 - 3.1 x10E3/uL [facility] Monocytes Absolute 0.3 0.1 - 0.9 x10E3/uL [facility] Eosinophils Absolute 0.1 0.0 - 0.4 x10E3/uL [facility] Basophils Absolute 0.0 0.0 - 0.2 x10E3/uL [facility] Immature Granulocyte Rel % 0 Not Estab. % [facility] Immature Grans Absolute 0.0 0.0 - 0.1 x10E3/uL [facility] Blood 09/10/2024 12:1 8 PM EDT 09/10/2024 Comment:Blood Release to crystal Kim [facility] (AMBULATORY) - 09/11/2024 8:07 AM EDT Performed at: 01 - [facility] [id number] Scientific Laboratory Supervisor: Edgardo Santos PhD, Phone: [phone] us José Norris MD LAB BLOOD ORDERABLES Final Resul t [facility] [address] [place] [address], [place] [phone] [facility] [address] [place] [address], [place] [phone] * Iron (09/10/2024 12:18 PM EDT) Iron 63 27 - 159 ug/dL [facility] Blood 09/10/2024 12:1 8 PM EDT 09/10/2024 Comment:Blood Release to [facility] (AMBULAT[facility]) - 09/11/2024 8:07 AM EDT Performed at: - [facility] [address] [place] [address] [id number] Scientific Laboratory Supervisor: Edgardo Santos PhD, Phone: [phone] us José Norris MD LAB BLOOD ORDERABLES Final Resul t Performing Organization Address City/[facility]/ZIP Co de Phone Number [facility] [address] [place] [address], [place] [phone] [facility] [address] [place] [address], [place] [phone] * Ferritin (09/10/2024 12:18 PM EDT) Ferritin 31 15 - 150 ng/mL [facility] Blood 09/10/2024 12:1 8 PM EDT 09/10/2024 Comment:Blood Release to [facility] (AMBULATORY) - 09/11/2024 8:07 AM EDT Performed at: - [facility] [address] [place] [id number] Scientific Laboratory Supervisor: Edgardo Santos PhD, Phone: [phone] us José Norris MD LAB BLOOD ORDERABLES Final Resul t [facility] (AMBULATORY) [address] [place] [address], [place] [phone] [facility] [address] [place] [address], * Vitamin B12 (09/10/2024 12:18 PM EDT) Vitamin B-12 720 232 - 1,245 pg/mL [facility] Blood 09/10/2024 12:1 8 PM EDT 09/10/2024 Comment:Blood Release to [facility] (AMBULATORY) - 09/11/2024 8:07 AM EDT Performed at: 01 - [facility] [address] [place] [address] [id number] Scientific Laboratory Supervisor: Edgardo Santos PhD, Phone: [phone] us José Norris MD LAB BLOOD ORDERABLES Final Resul t Performing Organization Address City/[facility]/ZIP Co de Phone Number [facility] [address] [place] [address], [facility] [address] [place] [address], * Lipid Panel (04/21/2024 1:42 PM EST) Total Cholesterol 163 100 - 199 mg/dL [facility] Triglycerides 94 0 - 149 mg/dL [facility] HDL Cholesterol 51 >39 mg/dL [facility] VLDL Cholesterol [place] 17 5 - 40 mg/dL [facility] LDL Chol Calc ([facility]) 95 0 - 99 mg/dL [facility] Blood 04/21/2024 1:42 PM EST 04/21/2024 Comment:Blood Release to [facility] (AMBULATORY) - 04/22/2024 8:07 AM EST Performed at: - [facility] [address] [place] [address] [id number] Scientific Laboratory Supervisor: Edgardo Santos PhD, Phone: [phone] us José Norris MD LAB BLOOD ORDERABLES Final Resul t Performing Organization Address City/[facility]/ZIP Co de Phone Number [facility] (AMBULATORY) [address] [place] [address], [facility] [address] [place] [address], * Hepatitis C Antibody (03/23/2023 11:37 AM EST) Hep C Virus Ab Non Reactive Non Reactive [facility] Comment: HCV antibody alone does not differentiate between previously resolved infection and active infection. Equivocal and Reactive HCV antibody results should be followed up with an HCV RNA test to support the diagnosis of active HCV infection. Blood Structure of right hand / Unknown 03/23/2023 11:37 AM EST 03/23/2023 Comment:Blood Release to [facility] [employer] [facility] (AMBULATORY) - 03/25/2023 9:06 AM EST Performed at: - [facility] [address] [place], [place] [id number] Scientific Laboratory Supervisor: Edgardo Santos PhD, Phone: [phone] us José Norris MD LAB BLOOD ORDERABLES Final Resul t [facility] [employer] [facility] (AMBUL[facility]) [address] [place] [id number], [facility] [address] [place] [address], [place] [phone] from Last 3 Months or Most Recently Relevant to Health Maintenance Insurance [employer] Care Teams Room Service Clerk Relationship Specialty Start Date End Date José Norris MD [address] [place] [address] [place] [phone] (work) PCP - General Internal Medicine 03/15/16
--- OUTSIDE RECORDS SUMMARY | 2024-11-28 14:03 | XMS_ITS | Clinical Summary ---
Author Organization [facility] Address [address] [place] [address] Care Team Providers Care Patrol Agent Name Role Phone José Norris MD Primary Care Provider [phone] Allergies Active Allergy Reactions Criticality Noted Date Comments Nsaids Other - please docum ent in the comment field Low 11/07/2023 Pt has had gastric bypass and can't take Tuberculin Tests Other - please docum ent in the comment field Low 08/19/2019 Positive reaction Medications * This document contains information received from the source organization and may not represent a complete record from that organization. cholecalciferol (Vitamin D-3) 25 MCG (1000 UT) tablet Take 2,000 Units by mouth 1 (one) time each day. 03/14/2018 Active Famotidine (PEPCID PO) Take by mouth. Active Lansoprazole (PREVACID PO) Take by mouth. Active MV-Min-Fe Fum-FA-DHA ( 1 PO) Take by mouth. Active Immunizations Immunization Administration Dates Next Due Hep A, Adult 08/28/2018,01/07/2018 Hep B, adult 10/25/2012,01/19/2012,09/18/2000 ,08/20/2000 Influenza, Unspecified 11/18/2019,11/20/2018, Influenza, seasonal, injectable 03/02/2011,11/29 MMR 08/20/2000,06/23/1991 Tdap 10/17/2017 Social History Tobacco Use Types Packs/Day Years Used Date Smoking Tobacco: Never Assessed Comments Unknown Sex and Gender Information Value Date Recorded Sex Assigned at Not on file Legal Sex Female 6:59 PM EDT Gender Identity Not on file Sexual Orientation Not on file Last Filed Vital Signs Vital Sign Reading Time Taken Comments Blood Pressure 104/69 11/14/2023 12:23 PM EDT Pulse 75 11/14/2023 12:23 PM EDT Temperature 36.9 C (98.4 F) 06/27/2021 1:04 PM EDT Respiratory Rate 16 11/14/2023 12:23 PM EDT Oxygen Saturation 100% 11/14/2023 11:56 AM EDT Inhaled Oxygen Concentration - - Weight 77.2 kg (170 lb 3.1 oz) 11/14/2023 11:15 AM EDT Height 152.4 cm (5') 11/14/2023 11:15 AM EDT Body Mass Index 33.24 11/14/2023 11:15 AM EDT Plan of Treatment Health Maintenance Due Date Last Done Comments [facility]-Depression Screening 1989 [facility]-HIV Screening 1989 [facility]-Infant/Child/Adol SDOH Screenings 1989 [facility]-Obesity Intervention 09/18/1995 [facility]-Varicella Vaccines (1 of 2 - 13+ 2-dose series) 2002 [facility]- SDOH Screenings 09/18/2007 [facility]-Adult SDOH Screenings 09/18/2007 [facility]-Pap Smear 2010 HPV Vaccines (1 - 3-dose SCDM series) 2016 [facility]-Cervical Cancer Screening 09/18/2019 [facility]-HPV/Cotest 09/18/2019 [id number] Vaccine ( season) 2024 03/08/2021, 02/01/2021 [facility]-Influenza Vaccine (#1) 11/03/202412/11, 11/18/2019, 11/20/2018, Additional history exists [facility]-DTaP,Tdap,and Td Vaccines (7 - Td or Tdap) 10/18/2027 10/17/2017, 10/13/2003, 12/19/1993, Additional history exists [facility]-Zoster Vaccines (1 of 2) 09/18/2039 [facility]-HIB Vaccines Completed 06/23/1991 [facility]-IPV Vaccines Completed 12/19/1993, 04/1992, 06/23/1991, Additional history exists [facility]-Hepatitis B Vaccines Completed 013, 01/19/2012, 04/26/2001, Additional history exists [facility]-Hepatitis A Vaccines Aged Out 08/28/2018, 07/2017 No longer eligible based on patient's age to complete this topic [facility]-Hepatitis C Screening Completed 03/23/2023 [facility]-Pneumococcal Vaccine: Pediatrics (0 to 5 Years) and At-Risk Patients (6 to 49 Years) Aged Out No longer eligible based on patient's age to complete this topic [facility]-Rotavirus Vaccines Aged Out No lo nger eligible based on patient's age to complete this topic Medical Devices Implanted Type Area Shoe Parts Caser Device Identifier Shelf Expiration Date Model / Serial / Lot Medtronic Linq Loop Recorder-09/13 Implanted:02/2019 by Ana Vincent (Quantity not on file) Implantable Loop Recorder Chest Medtronic [id number] / [id number] / Lead [facility] [employer]- Implanted: (Quantity not on file) Lead Chest [employer] 8TC/46 / [id number] / Assurity Mri Pacemaker [employer]ot- Implanted: (Quantity not on file) Pacemaker Chest [employer] [id number] / [id number] / Description:LEAD: 8TC/46 Insurance [facility] [address] [address] [place] Care Teams Patrol Agent Relationship Specialty Start Date End Date José Norris MD [address] [place] [phone] PCP - General 06/22/21
--- OUTSIDE RECORDS SUMMARY | 2024-11-28 14:03 | XMS_ITS | Encounter Summary ---
[facility] Address [address] [place] [address] Care Team Providers Care Freight Sorter Name Role Phone José Norris MD Primary Care Provider [phone] Reason for Visit * Reason Onset Date Comments Med Refill 11/21/2024 Encounter Details Date Type Department Care Team (Late st Contact Info) Description 11/21/2024 Telephone [facility] [address] [place] [address] [place] [address] José Norris MD [address] [place] [address] Med Refill Social History Tobacco Use Types Packs/Day Years [...] PM EDT documented as of this encounter Miscellaneous Notes * Telephone Encounter - José Norris MD - 11/21/2024 7:58 AM EDT We have talked about this medicine so I will call in the initial dose, although she needs to caution for GI side effects including GI upset, nausea, sometimes constipation. Also, as we are going to start the new medicine I would like to follow-up in a month to reassess how she is doing before we potentially titrate up doses. * Telephone Encounter - Demetria Keith MA - 11/21/2024 7:38 AM EDT Please send in Glp 1 insurance now covers wegovy per patient. documented in this encounter Plan of Treatment Upcoming Encounters Date Type Department Care Team (Late st Contact Info) Description 04/23/2025 2:00 PM EST Office Visit [facility] [address] [place] [address] [place] [phone] José Norris MD [address] [place] [address] [place] [address] 05/20/2025 3:30 PM EDT Office Visit [facility] [address] [place] [address] [place] [address] Ana Vincent MD [address] [facility] [place] [address] 05/20/2025 3:30 PM EDT Clinical Support No Requirements [facility] [address] [place] [address] documented as of this encounter Visit Diagnoses Not on filedocumented in this encounter Care Teams Freight Sorter Relationship Specialty Start Date End Date José Norris MD [address] [place] [address] [place] [address] PCP - General Internal Medicine 03/15/16 documented as of this encounter
--- OUTSIDE RECORDS SUMMARY | 2024-11-28 14:03 | XMS_ITS | Encounter Summary ---
[facility] Organization [facility] Address [address] [place] [address] Care Team Providers Care Rat Breeder Name Role Phone José Norris MD Primary Care Provider [phone] Reason for Visit * Reason Onset Date Comments Med Refill 11/13/2024 Encounter Details Date Type Department Care Team (Late st Contact Info) Description 11/13/2024 Refill [facility] [address] [place] [address] [place] [address] José Norris MD [address] [place] [address] Social History Tobacco Use Types Packs/Day [...] Description 04/23/2025 2:00 PM EST Office Visit [facility] [address] [place] [address] [place] [phone] José Norris MD [address] [place] [address] [place] [address] 05/20/2025 3:30 PM EDT Office Visit [facility] [address] [place] [address] [place] [phone] Ana Vincent MD [address] [facility] [place] [address] 05/20/2025 3:30 PM EDT Clinical Support No Requirements [facility] [address] [place] [address] [place] [address] documented as of this encounter Visit Diagnoses Not on filedocumented in this encounter Care Teams Rat Breeder Relationship Specialty Start Date End Date José Norris MD [address] [place] [address] PCP - General Internal Medicine 03/15/16 documented as of this encounter
== END 2024-11-28 23:59 | disposition home or self-care (01) ==
LOC: RAD 14:01
PROVIDERS: PCP Pediatrics; Visit Provider Obstetrics & Gynecology
DX: N83.01 Follicular cyst of right ovary (principal); R10.2 Pelvic and perineal pain; Z90.710 Acquired absence of both cervix and uterus; Z90.721 Acquired absence of ovaries, unilateral
CPT/HCPCS: 76830